=== PATIENT | female | born 1990 | race Caucasian/White ===

== ENCOUNTER 2019-06-15 14:45 | Inpatient (IN) ==
[2019-06-15] MEDS ORDERED: POTASSIUM CHLORIDE 20% LIQUID PO PRN (14:52)
[2019-06-15] MEDS ORDERED: POTASSIUM CHLORIDE 10% LIQUID PO PRN (14:52)
[2019-06-15] MEDS ORDERED: NS 1,000 ML IV ONE (14:52)
[2019-06-15] MEDS ORDERED: SODIUM BICARBONATE 8.4% 100 MEQ in STERILE WATER INJ. 500 ML IV PRN (14:52)
[2019-06-15] MEDS ORDERED: D50W SYRINGE IV PRN ×3 (14:52→19:08)
[2019-06-15] MEDS ORDERED: SODIUM PHOSPHATE 30 MMOL in D5W 250 ML IV PRN (14:52)
[2019-06-15] MEDS ORDERED: HUMULIN R IV ONE ×2 (14:52→19:08)
[2019-06-15] MEDS ORDERED: POTASSIUM CHLORIDE 20 MEQ/SWI 20 MEQ/100 ML IVPB IV PRN ×2 (14:52)
[2019-06-15] MEDS ORDERED: MAGNESIUM SULFATE 2 GM/S.W.I. 2 GM/50 ML IVPB IV PRN (14:52)
[2019-06-15] MEDS ORDERED: PROTONIX IV ONE (14:54)
[2019-06-15] MEDS ORDERED: SODIUM CHLORIDE 0.9% INJ ONE ×2 (14:54)
[2019-06-15] MEDS ORDERED: PEPCID IV ONE (14:54)
[2019-06-15] MEDS ORDERED: ZOFRAN IV ONE (14:54)
[2019-06-15] MEDS ORDERED: MORPHINE IV ONE ×2 (14:54→17:31)
[2019-06-15] MEDS ORDERED: HUMULIN R 100 UNIT in NS 100 ML IV SCH ×2 (15:00→19:08)
[2019-06-15 15:31] LABS: URINE SOURCE CLEAN CATCH
[2019-06-15 15:40] LABS: ALLEN TEST NO; BE -10.8 mmoll (-3.0-3.0); BLOOD TYPE ARTERIAL; HCO3-(ACT) 16.5 mmoll (20.0-26.0); PO2(98.6) 116 mmHg (60-100); SAMPLE BLOOD; pH(98.6) 7.47 (7.35-7.45)
[2019-06-15 15:41] LABS: PCO2(98.6) 13 mmHg (35-45); SAO2 97.9 % (95.0-100.0); THB 15.3 g/dL (11.5-17.4)
[2019-06-15 15:42] LABS: METHB 3.8 % (0.0-1.5); MODALITY ROOM AIR; O2(CT) 20.4 mL/dL (15.0-23.0); O2HB 94.2 % (95.0-99.0)
[2019-06-15 16:05] LABS: UR AMPHETAMINES QUAL NONE DETECTED (NONE DETECT); UR BARBITUATES QUAL NONE DETECTED (NONE DETECT); UR BENZODIAZEPIN QUAL NONE DETECTED (NONE DETECT); UR CANNABINOIDS QUAL NONE DETECTED (NONE DETECT); UR COCAINE QUAL NONE DETECTED (NONE DETECT); UR METHADONE QUAL NONE DETECTED (NONE DETECT); UR OPIATES QUAL PRESUMPTIVE POSITIVE (NONE DETECT); UR OXYCODONE QUAL NONE DETECTED (NONE DETECT); UR PCP QUAL NONE DETECTED (NONE DETECT)
[2019-06-15 16:15] LABS: BLOOD URINE NEGATIVE (NEGATIVE); COLOR YELLOW; GLUCOSE URINE >1000 mg/dL (NEGATIVE); LEUKOCYTES URINE NEGATIVE (NEGATIVE); NITRITE URINE NEGATIVE (NEGATIVE); PROTEIN URINE 100 mg/dL (NEGATIVE); TURBIDITY URINE CLEAR (CLEAR); UROBILINOGEN URINE NORMAL (NORMAL)
[2019-06-15 16:16] LABS: HEMATOCRIT 47.9 % (37.0-47.0); HEMOGLOBIN 17.7 g/dL (12.0-16.0); MCH 31.6 PG (27-31); MCV 85.5 FL (81-99); MPV 11.8 FL (7.4-10.4); RBC 5.6 XMIL (4.2-5.4); RDW 14.5 % (11.5-14.5); WBC 15.06 X1000 (4.8-10.8)
[2019-06-15 16:23] LABS: AMYLASE 136 U/L (20-200)
[2019-06-15 16:28] LABS: UR EPITHELIAL CELLS <10 /HPF (<10); URINE BACTERIA NEGATIVE /HPF; URINE RBC <10 /HPF (<10); URINE WBC <10 /HPF (<10)
[2019-06-15 16:28] LABS: LIPASE 300 U/L (13-60)
[2019-06-15 16:46] LABS: BILIRUBIN URINE SMALL (NEGATIVE); KETONE URINE 80 mg/dL (NEGATIVE); SP GRAVITY URINE 1.047
[2019-06-15] MEDS: NS 1,000 ML IV SCH ×6 (16:48→23:27)
[2019-06-15 16:52] LABS: INR 1.08; PROTIME 14.1 Seconds (11.0-16.0)
[2019-06-15] MEDS ORDERED: ZOSYN 4.5 GM in NS 100 ML IV ONE (17:02)
[2019-06-15] MEDS ORDERED: VANCOMYCIN 1 GM/NS 1 GM/250 ML IVPB IV ONE (17:02)
[2019-06-15 17:32] LABS: AGAP 26; ALKALINE PHOSPHATASE 66 U/L (32-104); CHLORIDE 82 mmol/L (98-107); COSMO 251; ESTIMATED GFR > 60; GLUCOSE 335 mg/dL (70-104); MAGNESIUM 1.4 mg/dL (1.5-2.7); POTASSIUM 3.7 mmol/L (3.5-5.1); SODIUM 119 mmol/L (136-145); TCO2 11 mmol/L (25-35); TOTAL BILIRUBIN 0.44 mg/dL (0.20-1.00); TOTAL PROTEIN 5.9 g/dL (6.3-8.3)
[2019-06-15 17:34] LABS: ACETONE SERUM NEGATIVE (NEGATIVE)
--- NOTE | 2019-06-15 17:38 | Diag Imaging Result Doc PS360 ---
EXAM: CHEST-PORTABLE 06/15/2019 HISTORY: dka TECHNIQUE: Erect AP portable at 1718 COMMENT: There is ill-defined opacity over the right hemidiaphragm. The heart size and pulmonary vascularity are within normal limits. There are no previous studies available for comparison. IMPRESSION: Minimal right basilar atelectasis versus pneumonia. Electronically signed by Chau Pretty 06/15/2019 5:35 PM
--- NOTE | 2019-06-15 18:11 | PROVIDER DOCUMENTATION ---
This chart was entered by Rosa Childs Scribe, acting as scribe for John Oconnor MD. HPI-General Adult - General Stated Complaint: ABDOMINAL PAIN Time Seen by Provider: 06/15/19 14:46 Source: patient, EMS Allergies/Adverse Reactions: Patient Allergies Allergy/AdvReac Type Severity Reaction Status Date / Time No Known Allergies Allergy Verified 06/13/19 02:28 Home Medications: Home Medication List Medication Instructions Recorded Confirmed Last Taken Type Insulin NPH Human Isophane See Protocol SUBQ BID 06/01/19 06/01/19 Unknown History [Humulin N] Acetaminophen with Codeine 1 ea PO Q4H PRN PRN #20 tab 06/13/19 Unknown Rx [Tylenol with Codeine #3] Ondansetron Odt [Zofran 8Mg Odt] 8 mg PO Q8H PRN PRN #20 tab 06/13/19 Unknown Rx - History of Present Illness -Gen Adult Nature of Presenting Problems: 28 y/o female with h/o type I diabetes and lupus presents with "pancreatitis and spleen and liver swollen". She states she takes OTC insulin and has not checked her blood sugar today. The patient complains of vomiting green emesis times 24 hours and intermittent dizziness. EMS states they picked the patient up at [facility] today and also two days ago when the patient had similar complaints and was fine after being given Fentanyl. Location of Pain/Injury: reports: abdomen (epigastrum), generalized Onset/Duration: reports: 24 hours ago Timing: reports: still present Associated Symptoms: reports: diaphoresis, dizziness, vomiting, other Similar Symptoms Previously?: Yes Recently seen or treated by another doctor?: Yes ([facility] 2 days ago ) Review of Systems - Adult - REVIEW OF SYSTEMS - ADULT Constitutional: denies: chills, fever, weight gain, weight loss Eyes: reports: no symptoms reported Ears, Nose, Mouth & Throat: reports: no symptoms reported Cardiovascular: reports: no symptoms reported Respiratory: reports: no symptoms reported Gastrointestinal: reports: nausea, vomiting. denies: diarrhea Genitourinary: reports: no symptoms reported Musculoskeletal: reports: no symptoms reported Integumentary: reports: no symptoms reported Neurological: reports: dizziness/vertigo. denies: seizure, syncope Psychiatric: reports: no symptoms reported Endocrine: reports: no symptoms reported Hematologic/Lymphatic: reports: no symptoms reported Allergic/Immunologic: reports: no symptoms reported All Other Systems: Reviewed and Negative Past History - Adult - PAST MEDICAL HISTORY-ADULT Review of Records: reports: Old Records Reviewed, Nursing Assessment Review, Medications Reviewed Major Childhood Illnesses: reports: denies history Cardiovascular: reports: denies history Respiratory: reports: denies history Gastrointestinal: reports: pancreatitis Obstetrical/Gynecological: reports: denies history Genitourinary: reports: denies history Musculoskeletal: reports: denies history Neurological: reports: denies history Psychiatric: reports: denies history Endocrine/Immune: reports: denies history Other Conditions: reports: denies history - IMMUNIZATION STATUS Childhood Immunizations: See Nurse Assessment Flu Vaccine: See Nurse Assessment - SOCIAL HISTORY Smoking: cigarettes Provider spent 3-5 mins advising pt. on dangers of tobacco.: Discussed manners to quit use, and f/u contacts for add'l counseling. Substance Use: denies Physical Exam-General - PHYSICAL EXAM-ADULT Initial Vital Signs Reviewed: Yes - CONSTITUTIONAL General Appearance: mild distress - HEAD, EARS, NOSE, MOUTH & THROAT HENMT: normocephalic/atraumatic, other (dry mucous membranes). negative: moist mucous membranes - RESPIRATORY Respiratory: lungs clear, increased rate. negative: rhonchi, wheezing - CARDIOVASCULAR Cardiovascular: tachycardia - GASTROINTESTINAL (ABDOMEN) Abdominal Exam: tenderness (epigastrum) - SKIN Integumentary: diaphoresis, other (diffuse papillary erythematous lesions with some pustules on upper and lower extremities, none on trunk) Progress - PLAN OF CARE/RESULTS Progress/Plan/Lab Results: 1456: negative CT scan abdomen and pelvis with contrast 06/13/2019 at [place] [facility] as well as additional visit to [facility] 06/14/2019. Result Diagrams: 06/15/19 15:22 06/15/19 15:22 - REASSESSMENT Reassessment #1 Time Reassessed: 17:09 Status: improving (Much better after IVF bolus, placed on insulin drip. Old chart reviewed, has been to ED daily for last 3 days, now is in DKA with epigastric pain/pancreatitis. Will need admission. Patient also meets sepsis (severe) criteria, so given Vanco/zosyn for possible GI source of infection.) Reassessment Comment: CT a/p with contrast done 2 days ago, benign - EKG 1 Time of EKG reading by physician:: 17:39 EKG Read and Signed by:: John Oconnor EKG Interpretation (*Must complete 3 of following elements*): Abnormal Rate: 130 Rhythm: sinus tachycardia [place]: right Comments: nonspecific ST and T wave - XRAY 1 XRAY Study: Chest (EXAM: CHEST-PORTABLE 06/15/2019 HISTORY: dka TECHNIQUE: Erect AP portable at 1718 COMMENT: There is ill-defined opacity over the right hemidiaphragm. The heart size and pulmonary vascularity are within normal limits. There are no previous studies available for comparison. IMPRESSION: Minimal right basilar atelectasis versus pneumonia. Electronically signed by Chau Pretty 06/15/2019 5:35 PM) - CONSULTS/PCP/HOSPITALIST Notification #1 *Consult/PCP/Hospitalist*: Perfecto paged at 1700 #2 Consult: Perfecto Time Discussed: 17:42 Consult Disposition: Admit Departure - Departure Date of Disposition Decision: 06/15/19 Time of Disposition Decision: 17:42 DIAGNOSIS: Diabetic ketoacidosis without coma associated with type 1 diabetes mellitus, Severe sepsis with acute organ dysfunction Pancreatitis, acute Qualifiers: Pancreatitis type: idiopathic Acute pancreatitis complication: unspecified Qualified Code(s): K85.00 - Idiopathic acute pancreatitis without necrosis or infection Disposition: ADMITTED INPATIENT 09 Certified Medical Emergency: Emergent Condition: Critical Referrals and Follow-Ups: None,PCP [Primary Care Provider] - - Critical Care Note This patient required my direct & personal management of CC.: Yes Total Time (mins): 45 Critical Care Statement: This patient required my direct personal management to treat or rule out processes, the absence of which, could potentiallly result in sudden, clinically significant life or limb threatening deterioration. Attestation - Physician/ MARISELA Attestation Patient care was provided by Advanced Practice Provider:: No The physician spent face to face time with patient:: Yes Advanced Practice Provider documentation review:: Supervising physician onsite and consulted in the evaluation and care of this patient. The physician did have a face to face encounter with the patient. This chart was documented by the indicated scribe, (Rosa Childs Scribe) and accurately reflects the services I performed and decisions made by Anastasia gonzalez Kent A., MD, as attested by the provider's signature.
[2019-06-15] MEDS ORDERED: COMPAZINE IV PRN (19:08)
[2019-06-15 19:48] LABS: BUN 8 mg/dL (8-22); CK PROFILE 24 U/L (24-173); CREATININE 0.8 mg/dL (0.5-0.9); GOT 86 U/L (10-30); GPT 58 U/L (10-36); PHOSPHORUS 1.6 mg/dL (2.7-4.5)
[2019-06-15 19:49] LABS: CALCIUM 7.6 mg/dL (8.8-10.2)
[2019-06-15] MEDS: MORPHINE IV PRN (20:10)
[2019-06-15] MEDS: ZOFRAN IV PRN (20:10)
[2019-06-15] MEDS: HEPARIN SUBQ SCH (20:11)
--- NOTE | 2019-06-15 20:59 | HISTORY AND PHYSICAL ---
PRIMARY CARE PHYSICIAN: None. CHIEF COMPLAINT: Abdominal pain. HISTORY OF PRESENT ILLNESS: This is a 28-year-old, female with past medical history of diabetes and lupus erythematosus untreated who presented to the emergency department complaining of nausea and vomiting. Actually, this patient has been seen in the emergency department in [place] on June 13 and June 14. Actually, she had an abdomen and pelvis CT at that time 2 days ago that basically showed hepatic steatosis and hepatosplenomegaly. The patient comes complaining of nausea and vomiting intractable that has been going on for the last 3 days. She reports in the last 48 hours at least 20 episodes of vomiting. No blood in it. Also diarrhea 2 to 3 times per day. No blood in it as well. She reports abdominal pain located mostly in the epigastric area that radiates a belt to the back. The vomiting that she describes in greenish. Here in the ER she was found to be in DKA, so she is going to be admitted for further evaluation and treatment. PAST MEDICAL HISTORY: 1. Diabetes diagnosed 12 years ago, but she had medical treatment until she was 17, and since then she does not have any primary care doctor. She gets her insulin apparently over-the- counter insulin 70/30 in [facility], but no primary care since then. 2. Lupus erythematosus that has been the diagnosed in [facility] many years ago. She does not remember when, but she is not receiving treatment for that condition. PAST SURGICAL HISTORY: 1. Gallbladder removal. 2. twice. 3. Right hand surgery. ALLERGIES: No known drug allergies. SOCIAL HISTORY: She lives with boyfriend and 2 children. She smokes 5 to 7 cigarettes per day. She does not drink any alcohol or using illicit drugs. She used to be a drinker, but she quit 4 years ago. REVIEW OF SYSTEMS: Eleven systems were reviewed and no symptoms are related to H P. FAMILY HISTORY: Noncontributory. PHYSICAL EXAMINATION: VITALS: Temperature 97.3 degrees, heart rate 141, respiratory rate 30, blood pressure 103/72, O2 saturations 99% on room air. GENERAL: This is a chronically ill-appearing, 28-year-old, female lying in bed in no acute distress. HEENT: Head is normocephalic, atraumatic. Mucous membranes dry. Pupils equal, round, and reactive to light and accommodation. Anicteric sclerae. Pale conjunctivae. NECK: No JVD noted. No carotid bruits. No lymphadenopathy. No thyromegaly. CARDIOVASCULAR: S1, S2 heard. No murmurs, gallops, or rubs. Regular rate and rhythm. RESPIRATORY: Clear bilaterally to auscultation. No work of breathing or using accessory muscles. ABDOMEN: Diffuse tenderness to palpation mostly noted in the epigastric area. No signs of peritoneal irritation. Bowel sounds present. No organomegaly. EXTREMITIES: No clubbing, cyanosis, or edema. EXTREMITIES: Peripheral pulses present in both legs. NEUROLOGIC: The patient alert and oriented x3. Moves 4 extremities. LABORATORY DATA: It is important to remark that some labs are not available. I talked with the ER lab, and they mentioned that the sample was almost looking like milk. The following labs that we have available are the following .white cell count 15.06, hemoglobin 17.7, hematocrit 47.9, platelets 328,000 with ABG that shows pH 7.47 with pCO2 of 13, PO2 116, lactate 5.8, sodium 119, potassium 3.7. BUN and creatinine are pending. Auto GFR the report is greater than 60. Glucose 335. The calcium and phosphorus are pending. Magnesium 1.4. AST and ALT pending. Troponin negative. Plasma lactate 6.5. ASSESSMENT AND PLAN: 1. Diabetic ketoacidosis. We will start this patient on insulin drip. We will check BMP q.4 hours as well as phosphorus and magnesium. We will provide aggressive fluid resuscitation. We will check hemoglobin A1c. We will send her to intensive care unit. 2. History of lupus. We are going to repeat ZAID panel here. 3. Hyperlipidemia. Apparently the blood sample is very milky. We will check lipid panel and will go from there. 4. Acute pancreatitis. Patient has history of chronic pancreatitis. She has according to her multiple times, I do not know, if that is because of hypertriglyceridemia. We do not have results of lipid panel yet. At this point, we are going to provide intravenous fluids and pain medication. We will continue to monitor this patient closely. 5. Intractable nausea and vomiting. We will start the patient on Zofran. Considering her long history of diabetes, we will check empty gastric studies thinking of diabetic gastroparesis. cc: David Virgen MD
[2019-06-15 21:28] LABS: HEMOGLOBIN A1C 8.9 % (4.8-6.0)
[2019-06-15 21:50] LABS: AGAP 21; ALB/GLOB RATIO 1.2; ALBUMIN 2.8 g/dL (3.5-5.0); ALKALINE PHOSPHATASE 53 U/L (32-104); BUN 7 mg/dL (8-22); CHLORIDE 92 mmol/L (98-107); CHOLESTEROL 733 mg/dL (0-200); COSMO 254; CREATININE 0.6 mg/dL (0.5-0.9); ESTIMATED GFR > 60; GLUCOSE 181 mg/dL (70-104); GOT 114 U/L (10-30); GPT 47 U/L (10-36); HDL 5 mg/dL (45-65); LDL 712 mg/dL; POTASSIUM 3.7 mmol/L (3.5-5.1); SODIUM 125 mmol/L (136-145); TCO2 12 mmol/L (25-35); TOTAL BILIRUBIN 0.41 mg/dL (0.20-1.00); TOTAL PROTEIN 5.2 g/dL (6.3-8.3); TRIGLYCERIDES > 4425 mg/dL (35-135)
[2019-06-15 22:07] LABS: CALCIUM 7.2 mg/dL (8.8-10.2)
[2019-06-16] MEDS: MORPHINE IV PRN ×4 (00:48→22:29)
[2019-06-16] MEDS: ZOFRAN IV PRN ×2 (00:48→07:50)
[2019-06-16 02:09] LABS: AGAP 20; BUN 7 mg/dL (8-22); CHLORIDE 98 mmol/L (98-107); COSMO 260; CREATININE 0.6 mg/dL (0.5-0.9); ESTIMATED GFR > 60; GLUCOSE 217 mg/dL (70-104); POTASSIUM 4.1 mmol/L (3.5-5.1); SODIUM 127 mmol/L (136-145); TCO2 9 mmol/L (25-35)
[2019-06-16 02:10] LABS: CALCIUM 6.6 mg/dL (8.8-10.2)
[2019-06-16] MEDS ORDERED: CALCIUM GLUCONATE 1 GM in NS 50 ML IV ONE (02:16)
[2019-06-16] MEDS ORDERED: ATIVAN IV ONE (02:44)
[2019-06-16] MEDS: POTASSIUM CHLORIDE 10 MEQ in D5 NS 1,000 ML IV PRN ×3 (02:46→20:02)
[2019-06-16] MEDS: NS 1,000 ML IV SCH ×3 (03:28→19:20)
[2019-06-16] MEDS ORDERED: PROTONIX IV SCH (04:00)
[2019-06-16] MEDS ORDERED: SODIUM CHLORIDE 0.9% INJ PRN (04:00)
[2019-06-16 04:38] LABS: ALLEN TEST YES; BE -10.6 mmoll (-3.0-3.0); BLOOD TYPE ARTERIAL; HCO3-(ACT) 16.6 mmoll (20.0-26.0); PCO2(98.6) 28 mmHg (35-45); PO2(98.6) 93 mmHg (60-100); SAMPLE BLOOD; pH(98.6) 7.31 (7.35-7.45)
[2019-06-16 04:39] LABS: MODALITY ROOM AIR
[2019-06-16 05:24] LABS: BASO# 0.02 X1000 (0.0-0.2); BASO% 0.2 % (0.0-0.8); EOS# 0.07 X1000 (0.0-0.7); EOS% 0.7 % (0.0-10.0); HEMATOCRIT 36.6 % (37.0-47.0); IMM GRAN# 0.02 X1000 (0.0-0.04); IMM GRAN% 0.2 % (0.0-0.5); LYMPH# 0.94 X1000 (1.2-3.4); LYMPH% 9.4 % (20.5-51.1); MCHC 35.5 g/dL (33-37); MCV 87.4 FL (81-99); MPV 11.6 FL (7.4-10.4); NEUT# 8.01 X1000 (1.4-6.5); NEUT% 80.5 % (42.2-75.2); PLT 177 X1000 (130-400); RBC 4.19 XMIL (4.2-5.4); RDW 14.3 % (11.5-14.5); WBC 9.96 X1000 (4.8-10.8)
[2019-06-16 06:17] LABS: AGAP 16; BUN 6 mg/dL (8-22); CHLORIDE 98 mmol/L (98-107); COSMO 260; CREATININE 0.3 mg/dL (0.5-0.9); ESTIMATED GFR > 60; GLUCOSE 235 mg/dL (70-104); MAGNESIUM 1.9 mg/dL (1.5-2.7); PHOSPHORUS 2.3 mg/dL (2.7-4.5); POTASSIUM 3.8 mmol/L (3.5-5.1); SODIUM 127 mmol/L (136-145); TCO2 13 mmol/L (25-35)
[2019-06-16 06:18] LABS: CALCIUM 6.9 mg/dL (8.8-10.2)
--- NOTE | 2019-06-16 07:10 | EKG Report ---
Test Performed on : 06/15/2019 3:33:44 PM Test Reason : epigastric pain, DM Blood Pressure : / mmHG Vent. Rate : 130 BPM Atrial Rate : 130 BPM P-R Int : 120 ms QRS Dur : 060 ms QT Int : 306 ms P-R-T Axes : 000 140 141 degrees QTc Int : 450 ms Sinus tachycardia. Right axis deviation Low voltage QRS Nonspecific T wave abnormality Abnormal ECG No previous ECGs available Unconfirmed Result
[2019-06-16] MEDS: HEPARIN SUBQ SCH ×2 (08:36→20:59)
[2019-06-16] MEDS: ATIVAN IV PRN ×4 (08:44→20:59)
--- NOTE | 2019-06-16 10:11 | PROGRESS NOTE ---
DATE: 06/16/2019 SUBJECTIVE: The patient, according to nursing staff, has been agitated and anxious. She received 1 dose of Ativan IV and she is very sleepy this morning. OBJECTIVE: Vital Signs: Temperature 99.3 degrees, heart rate 117, respiratory rate 21, blood pressure 104/64, O2 saturation 98% on room air. General Examination: This is a chronically ill- appearing, 28-year-old, female lying in bed, in no acute distress. Cardiovascular Examination: S1 and S2 heard. Tachycardic but no murmurs, gallops, or rubs noted. Respiratory Examination: Clear bilaterally to auscultation. No work of breathing or using accessory muscles. Abdomen: Diffuse tenderness to palpation but no signs of peritoneal irritation. Looks that there is splenomegaly noted. Bowel sounds present. Extremities: No clubbing, cyanosis, or edema. Peripheral pulses present in both legs. There are lesions noted, elevated pinkish lesions noted in the extensor areas of both upper extremities and lower extremities, apparently itchy. Neurological Examination: The patient is sleepy because she has received Ativan but moves 4 extremities spontaneously. Laboratory Data: White cell count 9.96, hemoglobin 13.0, hematocrit 36.6, platelets 177,000. ABG shows pH 7.31, with pCO2 of 28, PO2 of 93 on room air. Left chemistry showed sodium 127 with normal creatinine and glucose is 235. ASSESSMENT AND PLAN: 1. Diabetic ketoacidosis. The patient is still having open anion gap and low bicarbonate. We will continue with the insulin infusion. We will continue to check magnesium and phosphorus, and we will replete per protocol. We will continue with aggressive fluid resuscitation as well. 2. History of lupus. ZAID panel has been ordered. 3. Acute on chronic pancreatitis. Patient has a history of chronic pancreatitis, most likely related to hypertriglyceridemia, according to her, and the triglycerides today are more than 4425 with cholesterol very elevated at 733. I think that is the reason why she has this problem so we will start this patient on atorvastatin 80 mg at night and we will continue with insulin drip. That will definitely help with very elevated triglycerides. 4. Intractable nausea and vomiting. We will continue with Zofran that apparently is working. With this extremely bad-controlled diabetes, we will check emptying gastric studies for possible diabetic gastroparesis. cc: David Virgen MD
--- NOTE | 2019-06-16 10:25 | Diag Imaging Result Doc PS360 ---
EXAM: US ABDOMEN-COMPLETE HISTORY: acute on chronic pancreatitis TECHNIQUE: Abdominal ultrasound COMPARISON: CT from 06/13/2019 FINDINGS: The pancreas is obscured. The liver is prominent measuring almost 24 cm. There is fatty infiltration. The gallbladder has been removed. The common bile duct measures 6 mm. Normal right kidney. No hydronephrosis. Normal left kidney. No hydronephrosis. The spleen is prominent measuring 14.7 cm in length. No ascites. The aorta and inferior vena cava are poorly seen. IMPRESSION: 1.Hepatosplenomegaly with fatty infiltration of the liver 2.Cholecystectomy Electronically signed by Jackson Camejo 06/16/2019 10:22 AM
--- NOTE | 2019-06-16 10:44 | INFECTIOUS DISEASE CONSULT REP ---
DATE: 06/16/2019 CONCLUSION: I was asked to see the patient about her rash. The appearance of the rash is similar to pictures of molluscum contagiosum and up-to-date. Also, apparently the patient was told at one time she does have molluscum contagiosum. Because of both of these things, it does really appear she does have molluscum contagiosum. The patient also might have pancreatitis. She is having abdominal pain. She has a history of pancreatitis and her lipase is 300. Finally, the patient on chest x-ray, in the lower part of the right lung, there is pneumonia versus atelectasis. RECOMMENDATIONS: Unfortunately, I have not had much experience with treatment of molluscum contagiosum, and I would be hesitant to try to do any kind of treatment. I do not think that dermatologists come to [facility] for consult, so most likely the patient will have to see one after she leaves the hospital. If we want to go ahead and try to get a diagnosis now, I could ask Surgery to do a skin biopsy and see what it shows. Recommendations regarding the patient's possible pneumonia, I have ordered a procalcitonin and I have started the patient on IV Levaquin. DISCUSSION: The patient is delirious. She does not follow any requests I make of her and she does not talk. The information I have on her is through the computer. She came to the emergency department complaining of nausea and vomiting. She had an abdomen and pelvic CT scan which showed hepatic steatosis and hepatosplenomegaly. She was found in the emergency room to be in diabetic ketoacidosis and she was admitted. The patient's lab studies thus far show a CBC with a white count of 9960, hemoglobin 13, platelet count is 177,000. AST is 114. Urinalysis was negative for white cells or bacteria. Arterial blood gases showed a pH of 7.31, a PO2 of 93 and a pCO2 of 28. Creatinine was 0.3. GFR is greater than 60. Drug screen was positive for opiates. The patient's lipase was 300. As mentioned above, the chest x-ray showed minimal right atelectasis/pneumonia. PAST MEDICAL HISTORY: Positive for diabetes mellitus, systemic lupus, and chronic pancreatitis. PAST SURGICAL HISTORY: Positive for cholecystectomy, x2, and right hand surgery. ALLERGIES: The patient has no known drug allergies. SOCIAL HISTORY: The patient lives with her boyfriend and 2 children. She smokes cigarettes. She does not drink alcoholic beverages or use illicit drugs. She has stopped drinking alcohol for 4 years now. REVIEW OF SYSTEMS: Unable to be obtained. FAMILY HISTORY: Said to be noncontributory. PHYSICAL EXAMINATION: Vital Signs: Temperature is 99.3 degrees, pulse 119, respirations 24, blood pressure 119/69. The patient is 5 feet 11 inches tall, weighs 175 pounds. General: This is an ill-appearing young female. She is somewhat delirious. Head/eyes/ears/nose/throat: No drainage noted from the nose or ears. Neck: She did not seem to have any pain when her neck was moved passively. Lungs: Clear to auscultation. Cardiovascular: Regular heart rate. Abdomen: Soft. In the upper part of the abdomen, there was slight tenderness to palpation. Neurologic: The patient as mentioned above is in a delirium. She did not follow my request to move her extremities or to open her eyes or open her mouth. There was no tremor. Integument: The patient has a diffuse punctate red rash with light colored center. The patient's skin has papules that are erythematous in the middle. They are skin color. Thank you for the consult. cc: Pio Delgado MD
[2019-06-16] MEDS: LEVAQUIN 500 MG in NS 100 ML IV SCH (11:04)
[2019-06-16 11:32] LABS: ESTIMATED GFR > 60
[2019-06-16 11:39] LABS: AGAP 16; BUN 6 mg/dL (8-22); CALCIUM 7.1 mg/dL (8.8-10.2); CHLORIDE 99 mmol/L (98-107); COSMO 267; CREATININE 0.7 mg/dL (0.5-0.9); GLUCOSE 250 mg/dL (70-104); PHOSPHORUS 1.6 mg/dL (2.7-4.5); SODIUM 130 mmol/L (136-145); TCO2 15 mmol/L (25-35)
[2019-06-16] MEDS ORDERED: TYLENOL PR PRN (11:41)
[2019-06-16] MEDS ORDERED: OFIRMEV 1000 MG/ISOTONIC SOLN 1,000 MG/100 ML BOTTLE IV PRN (11:58)
--- NOTE | 2019-06-16 14:27 | Diag Imaging Result Doc PS360 ---
EXAM: GASTRIC EMPTYING INDICATION: suspected gastroparesis TECHNIQUE: 609 uCi of technetium 99 sulfur colloid was administered orally with an egg and images were obtained in usual fashion. COMPARISON: None. FINDINGS: There is normal-appearing activity in the gastric lumen initially. The extrapolated time to one half emptying is 200 minutes. The patient is electively ended the study at one hour. At this point, there was only 15% emptying. IMPRESSION: Delayed gastric emptying supporting gastroparesis. Electronically signed by Timoteo Mann 06/16/2019 2:25 PM
[2019-06-16 16:45] LABS: ESTIMATED GFR > 60
[2019-06-16 16:49] LABS: AGAP 19; BUN 7 mg/dL (8-22); CALCIUM 7.6 mg/dL (8.8-10.2); CHLORIDE 100 mmol/L (98-107); COSMO 271; CREATININE 0.7 mg/dL (0.5-0.9); GLUCOSE 252 mg/dL (70-104); MAGNESIUM 1.9 mg/dL (1.5-2.7); PHOSPHORUS 1.1 mg/dL (2.7-4.5); POTASSIUM 4.3 mmol/L (3.5-5.1); SODIUM 132 mmol/L (136-145); TCO2 13 mmol/L (25-35)
[2019-06-16] MEDS: POTASSIUM CHLORIDE 10% LIQUID PO PRN (17:17)
[2019-06-16] MEDS: LIPITOR PO SCH (20:59)
[2019-06-16] MEDS: REGLAN IV SCH (22:45)
[2019-06-16 23:02] LABS: AGAP 14; BUN 6 mg/dL (8-22); CHLORIDE 100 mmol/L (98-107); COSMO 263; CREATININE 0.7 mg/dL (0.5-0.9); ESTIMATED GFR > 60; GLUCOSE 183 mg/dL (70-104); MAGNESIUM 1.9 mg/dL (1.5-2.7); PHOSPHORUS 1.2 mg/dL (2.7-4.5); POTASSIUM 4.1 mmol/L (3.5-5.1); SODIUM 130 mmol/L (136-145); TCO2 16 mmol/L (25-35)
[2019-06-17] MEDS: ATIVAN IV PRN ×4 (01:12→21:13)
[2019-06-17] MEDS: MORPHINE IV PRN ×2 (01:13→05:57)
[2019-06-17] MEDS: POTASSIUM CHLORIDE 10% LIQUID PO PRN ×2 (02:45→05:44)
[2019-06-17 02:52] LABS: AGAP 14; BUN 6 mg/dL (8-22); CALCIUM 7.8 mg/dL (8.8-10.2); CHLORIDE 102 mmol/L (98-107); COSMO 263; CREATININE 0.7 mg/dL (0.5-0.9); ESTIMATED GFR > 60; GLUCOSE 147 mg/dL (70-104); MAGNESIUM 1.8 mg/dL (1.5-2.7); PHOSPHORUS 1.1 mg/dL (2.7-4.5); POTASSIUM 3.4 mmol/L (3.5-5.1); SODIUM 131 mmol/L (136-145); TCO2 15 mmol/L (25-35)
[2019-06-17] MEDS: NS 1,000 ML IV SCH ×2 (03:50→10:18)
[2019-06-17] MEDS: POTASSIUM CHLORIDE 10 MEQ in D5 NS 1,000 ML IV PRN (04:06)
[2019-06-17] MEDS: REGLAN IV SCH ×4 (04:11→23:03)
[2019-06-17 05:08] LABS: BASO# 0.01 X1000 (0.0-0.2); BASO% 0.1 % (0.0-0.8); EOS# 0.24 X1000 (0.0-0.7); EOS% 2.8 % (0.0-10.0); HEMATOCRIT 32.2 % (37.0-47.0); HEMOGLOBIN 10.9 g/dL (12.0-16.0); IMM GRAN# 0.03 X1000 (0.0-0.04); IMM GRAN% 0.4 % (0.0-0.5); LYMPH% 11.9 % (20.5-51.1); MCH 30.2 PG (27-31); MCHC 33.9 g/dL (33-37); MCV 89.2 FL (81-99); MONO# 0.64 X1000 (0.11-0.59); MONO% 7.6 % (1.7-9.3); MPV 12.1 FL (7.4-10.4); NEUT# 6.51 X1000 (1.4-6.5); NEUT% 77.2 % (42.2-75.2); PLT 143 X1000 (130-400); RBC 3.61 XMIL (4.2-5.4); RDW 14.6 % (11.5-14.5); WBC 8.43 X1000 (4.8-10.8)
[2019-06-17 05:13] LABS: AGAP 11; BUN 5 mg/dL (8-22); CALCIUM 7.9 mg/dL (8.8-10.2); CHLORIDE 100 mmol/L (98-107); COSMO 259; CREATININE 0.7 mg/dL (0.5-0.9); ESTIMATED GFR > 60; GLUCOSE 182 mg/dL (70-104); MAGNESIUM 1.7 mg/dL (1.5-2.7); PHOSPHORUS 1.2 mg/dL (2.7-4.5); POTASSIUM 3.5 mmol/L (3.5-5.1); SODIUM 128 mmol/L (136-145); TCO2 17 mmol/L (25-35)
[2019-06-17] MEDS ORDERED: SODIUM PHOSPHATE 40 MMOL in NS 250 ML IV ONE (05:17)
[2019-06-17] MEDS ORDERED: NEUTRA-PHOS PO SCH (05:30)
[2019-06-17 06:56] LABS: CHOLESTEROL 477 mg/dL (0-200); HDL 7 mg/dL (45-65); TRIGLYCERIDES 2849 mg/dL (35-135)
--- NOTE | 2019-06-17 09:07 | PROGRESS NOTE ---
DATE: 06/17/2019 SUBJECTIVE: According to nursing staff, she has been more calmed down overnight, but she was receiving Ativan because she has been agitated and anxious. Also, pain is well controlled with morphine that she is receiving. OBJECTIVE: Vital Signs: Temperature 98.6 degrees, heart rate 106, respiratory rate 20, blood pressure 103/50, and O2 saturation 95% on 2 L nasal cannula. General: This is a chronically ill- appearing, 28-year-old, female lying in bed, in no acute distress. Cardiovascular: S1, S2 heard. No murmurs, gallops, or rubs. Regular rate and rhythm. Respiratory: Clear bilaterally to auscultation. No work of breathing or using accessory muscles. Abdomen: Soft. Nontender to palpation. Bowel sounds present. No organomegaly. Extremities: No clubbing, cyanosis, or edema. Peripheral pulses present in both legs. The patient has on both upper extremities some elevated lesions like papules that are erythematosus apparently not itchy. Neurological: Patient alert and oriented x3. Moves all 4 extremities. LABORATORY DATA: White cell count 8.43, with hemoglobin 10.9, hematocrit 32.2 and platelets are 143,000 with BMP that reveals bicarbonate of 17 with anion gap of 11. ASSESSMENT AND PLAN: 1. Diabetic ketoacidosis. Numbers are looking better. The patient is still have low bicarbonate but the anion gap has closed. At this point, we will continue with the insulin infusion. I think if the next BMP shows better bicarbonate, then we will stop the drip. Magnesium and phosphorus has been checked, and will repeat phosphorus today. 2. Community-acquired pneumonia. Patient has been started on Levaquin as per Dr. Delgado' recommendation. We will continue to monitor. 3. Acute on chronic pancreatitis. We will continue with IV fluids and IV pain medication. We will continue to monitor. 4. Newly diagnosed diabetic gastroparesis. That is the reason why this patient was vomiting profusely on double scale DKA. We will start Reglan 5 mg IV q.6 hours. We will provide a prescription once this patient is ready to go. 5. Severe hypertriglyceridemia. We will check a lipid panel today; that is the reason why this patient has developed pancreatitis again. She was also having severe hypercholesterolemia as well. At this point, we will continue to monitor. 6. Disposition: We will continue to monitor this patient closely in the ICU. If labs that are going to drawn in a few hours shows better bicarbonate, then we can send this patient to a regular room. cc: David Virgen MD MTDKaren
[2019-06-17 09:11] LABS: AGAP 13; BUN 5 mg/dL (8-22); CHLORIDE 106 mmol/L (98-107); COSMO 273; CREATININE 0.6 mg/dL (0.5-0.9); ESTIMATED GFR > 60; GLUCOSE 161 mg/dL (70-104); MAGNESIUM 1.8 mg/dL (1.5-2.7); PHOSPHORUS 3.2 mg/dL (2.7-4.5); POTASSIUM 3.7 mmol/L (3.5-5.1); SODIUM 136 mmol/L (136-145); TCO2 17 mmol/L (25-35)
[2019-06-17] MEDS: HEPARIN SUBQ SCH ×2 (09:16→21:13)
[2019-06-17] MEDS: HUMULIN 70/30 SUBQ SCH ×2 (10:43→18:03)
[2019-06-17] MEDS ORDERED: INSULIN PEN NEEDLES ONE (10:46)
[2019-06-17] MEDS: HUMALOG SUBQ SCH ×3 (11:31→21:14)
[2019-06-17] MEDS: LEVAQUIN 500 MG in NS 100 ML IV SCH (11:43)
[2019-06-17] MEDS: LIPITOR PO SCH (21:13)
[2019-06-18] MEDS: NS 1,000 ML IV SCH (00:47)
[2019-06-18] MEDS: ATIVAN IV PRN (02:19)
[2019-06-18] MEDS: REGLAN IV SCH ×2 (04:42→09:28)
[2019-06-18] MEDS: MORPHINE IV PRN (04:54)
[2019-06-18 05:26] LABS: BASO# 0.01 X1000 (0.0-0.2); BASO% 0.1 % (0.0-0.8); EOS# 0.17 X1000 (0.0-0.7); EOS% 1.9 % (0.0-10.0); HEMATOCRIT 31.6 % (37.0-47.0); HEMOGLOBIN 10.3 g/dL (12.0-16.0); IMM GRAN# 0.02 X1000 (0.0-0.04); IMM GRAN% 0.2 % (0.0-0.5); LYMPH# 1.19 X1000 (1.2-3.4); LYMPH% 13.3 % (20.5-51.1); MCH 28.9 PG (27-31); MCHC 32.6 g/dL (33-37); MCV 88.8 FL (81-99); MONO# 0.78 X1000 (0.11-0.59); MONO% 8.7 % (1.7-9.3); MPV 11.7 FL (7.4-10.4); NEUT# 6.75 X1000 (1.4-6.5); NEUT% 75.8 % (42.2-75.2); PLT 155 X1000 (130-400); RBC 3.56 XMIL (4.2-5.4); RDW 14.4 % (11.5-14.5); WBC 8.92 X1000 (4.8-10.8)
[2019-06-18] MEDS: HUMALOG SUBQ SCH (06:16)
[2019-06-18 06:33] LABS: AGAP 16; BUN 4 mg/dL (8-22); CALCIUM 8.4 mg/dL (8.8-10.2); CHLORIDE 98 mmol/L (98-107); COSMO 265; CREATININE 0.6 mg/dL (0.5-0.9); ESTIMATED GFR > 60; GLUCOSE 202 mg/dL (70-104); MAGNESIUM 1.6 mg/dL (1.5-2.7); PHOSPHORUS 2.9 mg/dL (2.7-4.5); POTASSIUM 3.2 mmol/L (3.5-5.1); SODIUM 131 mmol/L (136-145); TCO2 17 mmol/L (25-35)
[2019-06-18] MEDS ORDERED: HUMULIN 70/30 SUBQ SCH (07:00)
--- NOTE | 2019-06-18 08:22 | Diag Imaging Result Doc PS360 ---
EXAM: CHEST-2 VIEWS HISTORY: pna TECHNIQUE: PA and Lateral chest x-ray COMPARISON: 06/15/2019 FINDINGS: The cardiomediastinal silhouette is within normal limits. There are reduced lung volumes with bibasilar hypoventilation/atelectasis. There are small bilateral effusions new from prior. There is mild vascular congestion. IMPRESSION: Reduced lung volumes with bibasilar atelectasis. Vascular congestion with bilateral effusions. Electronically signed by Traci Castaneda 06/18/2019 8:19 AM
[2019-06-18 08:51] VITALS: BP 129/74
[2019-06-18] MEDS: HUMULIN 70/30 SUBQ SCH (09:28)
[2019-06-18] MEDS: HEPARIN SUBQ SCH (09:28)
[2019-06-18] MEDS ORDERED: KLOR-CON PO ONE (09:44)
--- NOTE | 2019-06-18 10:41 | INFECTIOUS DISEASE PROGRESS NO ---
DATE: 06/18/2019 PRESENT ILLNESS: The patient may have a right lower lobe pneumonia versus atelectasis. She also has a diffuse rash, which I think is compatible with being molluscum contagiosum. MEDICATIONS: The patient is receiving Levaquin for the possible pneumonia. As regarding the patient's skin rash, I think she should go to a active directory architect to make the final decision as to what the rash is, and also the active directory architect would be the one to decide what type of treatment is indicated for her rash. Regarding for the patient's pneumonia for now, I am going to continue Levaquin. A procalcitonin level and repeat chest x-ray are pending. PHYSICAL EXAMINATION: Vital Signs: Temperature earlier was 100.2. The last temperature was 99.9 degrees, pulse 111, respirations 17, and blood pressure is 125/72. General: This is a lethargic and somewhat ill-appearing young female. She is in no acute distress. Head/eyes/ears/nose/throat: No drainage was noted from the nose or ears. I did not see any white patches in her mouth. Neck: No pain with movement. Lungs: Clear to auscultation. Cardiovascular: Heart rate is regular. Abdomen: Soft and nontender. Integument: The patient has diffuse red papular lesions with a light colored center. She also has tattoos and some jewelry pinned on her skin. LABORATORY AND X-RAY: CBC shows a white count of 8920, hemoglobin 10.3, and platelet count 155,000. Creatinine 0.6. GFR is greater than 60. A procalcitonin level and chest x-ray for this morning are pending. ASSESSMENT AND PLAN: The patient may have a right lower lobe pneumonia. My plan is to continue with Levaquin pending the results of procalcitonin, and the repeat chest x-ray. As regarding the patient's rash as, as mentioned above, I think that the patient would get the best care by seeing a active directory architect to diagnosis and treat her rash. COMORBIDITIES: Diabetes mellitus, systemic lupus, and pancreatitis. Patient also is a cigarette smoker. cc: Pio Delgado MD
--- NOTE | 2019-06-19 09:33 | DISCHARGE SUMMARY ---
ADMISSION DATE: 06/15/2019 DISCHARGE DATE: 06/18/2019 CONSULTATIONS: Dr. Delgado with Infectious Disease. PERTINENT PROCEDURES: Abdominal ultrasound: Hepatosplenomegaly with fatty infiltration of the liver, cholecystectomy, gastric emptying study delayed supporting gastroparesis, chest x-ray reveals lung volumes with bibasilar atelectasis, vascular congestion with bilateral effusions. DISCHARGE DIAGNOSES: 1. Diabetic ketoacidosis, resolved. 2. Community-acquired pneumonia followed by Dr. Delgado. We will continue antibiotics per his recommendation. 3. History of lupus. 4. Acute on chronic pancreatitis, improved. 5. Intractable nausea and vomiting secondary to diabetic gastroparesis. 6. Diffuse rash compatible with molluscum contagiosum. Recommend she follow up with a migratory worker to diagnose and treat this rash per Dr. Delgado. HOSPITAL COURSE: Briefly, Ms. Dave is a 28-year-old female with a past medical history of diabetes and lupus erythematous, untreated, who presented to the ED complaining of nausea and vomiting. She had also been seen in the ED at [facility] on June 13 and . She had an abdomen and pelvis CT at that time that basically showed hepatic steatosis and hepatosplenomegaly. She came back into the ED complaining of nausea and vomiting that was intractable, as well as diarrhea 2 to 3 times per day and abdominal pain that was located in the epigastric area that radiated to the back. She was found to be in DKA and was admitted for further evaluation and treatment for her DKA and acute pancreatitis, as well as her intractable nausea and vomiting. A gastric emptying study confirmed gastroparesis. Infectious Disease was brought on board to see the patient about a rash that appeared to be consistent with pictures of molluscum contagiosum, as the patient had been told that she had this condition once before. She was also treated for possible pneumonia versus atelectasis with Levaquin. Her DKA and acute pancreatitis resolved, as well as her nausea, vomiting and diarrhea. Repeat chest x-ray today does not show any pneumonia. She will be discharged on Humulin 70/30, Reglan and Lipitor, and is encouraged to follow up with a migratory worker for her rash. VITAL SIGNS: At time of her discharge, temperature 99.3 degrees, heart rate 102, respiration 19, blood pressure 129/74, O2 is 95% on room air. DISCHARGE DIET: Diabetic. DISCHARGE MEDICATIONS: 1. Lipitor 40 mg p.o. at bedtime. 2. Humulin 70/30, 25 units subcutaneous b.i.d. 3. Reglan 0.5 tabs p.o. before meals and at bedtime. FOLLOW-UP: Ms. Dave is being discharged back home with self care. She is to take all medications as prescribed. She is to follow up with a migratory worker of her choosing, as well as a primary care provider of her choosing to the list that has been provided to her. She can return to the ED or call 911 for any worsening of symptoms. Dictated by ILYA Fernandes for David Virgen MD Addendum: Patient seen and examined by myself. Agree with ILYA note. It reflects my assessment and plan. Patient is being discharged in stable condition. Highly encouraged to find a PCP. Will provide prescriptions for insulin. cc: David Virgen MD MTDD
== END 2019-06-18 11:33 | disposition home or self-care (01) | DRG 637 ==
LOC: SUPCPDRO → ED 14:45 → EDIPHOLD 18:52 → ICU 21:05 → 1N 06-17 12:03
PROVIDERS: ATTEND Internal Medicine

== ENCOUNTER 2019-06-20 14:49 | Inpatient (IN) ==
[2019-06-20] MEDS ORDERED: COMPAZINE IV ONE (15:07)
[2019-06-20] MEDS ORDERED: NS 1,000 ML IV ONE ×2 (15:07→17:48)
[2019-06-20] MEDS ORDERED: DILAUDID IV ONE (15:07)
[2019-06-20 15:34] LABS: ALLEN TEST YES; BE -8.2 mmoll (-3.0-3.0); BLOOD TYPE ARTERIAL; HCO3-(ACT) 18.5 mmoll (20.0-26.0); METHB 1.2 % (0.0-1.5); O2(CT) 16.1 mL/dL (15.0-23.0); PO2(98.6) 97 mmHg (60-100); SAMPLE BLOOD; SAO2 98.6 % (95.0-100.0); THB 11.8 g/dL (11.5-17.4); pH(98.6) 7.46 (7.35-7.45)
[2019-06-20 15:35] LABS: MODALITY ROOM AIR; PCO2(98.6) 19 mmHg (35-45)
[2019-06-20 16:03] LABS: BASO# 0.04 X1000 (0.0-0.2); BASO% 0.3 % (0.0-0.8); EOS# 0.23 X1000 (0.0-0.7); EOS% 1.9 % (0.0-10.0); HEMATOCRIT 36.9 % (37.0-47.0); HEMOGLOBIN 11.6 g/dL (12.0-16.0); IMM GRAN# 0.07 X1000 (0.0-0.04); IMM GRAN% 0.6 % (0.0-0.5); LYMPH# 1.56 X1000 (1.2-3.4); MCH 27.8 PG (27-31); MCHC 31.4 g/dL (33-37); MCV 88.3 FL (81-99); MONO# 1.07 X1000 (0.11-0.59); MONO% 8.9 % (1.7-9.3); MPV 11.5 FL (7.4-10.4); NEUT% 75.3 % (42.2-75.2); PLT 283 X1000 (130-400); RBC 4.18 XMIL (4.2-5.4); RDW 14.2 % (11.5-14.5); WBC 11.97 X1000 (4.8-10.8)
[2019-06-20 16:08] LABS: URINE SOURCE CLEAN CATCH
[2019-06-20 16:20] LABS: ESTIMATED GFR > 60
[2019-06-20 16:20] LABS: BILIRUBIN URINE NEGATIVE (NEGATIVE); BLOOD URINE NEGATIVE (NEGATIVE); COLOR YELLOW; GLUCOSE URINE >1000 mg/dL (NEGATIVE); KETONE URINE >150 mg/dL (NEGATIVE); LEUKOCYTES URINE NEGATIVE (NEGATIVE); NITRITE URINE NEGATIVE (NEGATIVE); PROTEIN URINE 100 mg/dL (NEGATIVE); SP GRAVITY URINE 1.021; TURBIDITY URINE CLEAR (CLEAR); UROBILINOGEN URINE 2 mg/dL (NORMAL)
[2019-06-20 16:22] LABS: UR EPITHELIAL CELLS <10 /HPF (<10); URINE BACTERIA NEGATIVE /HPF; URINE RBC <10 /HPF (<10); URINE WBC <10 /HPF (<10)
[2019-06-20 16:22] LABS: AGAP 28; ALB/GLOB RATIO 0.9; ALBUMIN 3.1 g/dL (3.5-5.0); ALKALINE PHOSPHATASE 101 U/L (32-104); AMYLASE 51 U/L (20-200); BUN 6 mg/dL (8-22); CALCIUM 9.3 mg/dL (8.8-10.2); CHLORIDE 90 mmol/L (98-107); CK PROFILE 39 U/L (24-173); COSMO 279; CREATININE 0.8 mg/dL (0.5-0.9); GLUCOSE 361 mg/dL (70-104); GOT 19 U/L (10-30); GPT 48 U/L (10-36); LIPASE 110 U/L (13-60); MAGNESIUM 1.7 mg/dL (1.5-2.7); PHOSPHORUS 3.4 mg/dL (2.7-4.5); POTASSIUM 3.9 mmol/L (3.5-5.1); SODIUM 133 mmol/L (136-145); TCO2 15 mmol/L (25-35); TOTAL PROTEIN 6.7 g/dL (6.3-8.3)
[2019-06-20 16:27] LABS: UR AMPHETAMINES QUAL NONE DETECTED (NONE DETECT); UR BARBITUATES QUAL NONE DETECTED (NONE DETECT); UR BENZODIAZEPIN QUAL NONE DETECTED (NONE DETECT); UR CANNABINOIDS QUAL NONE DETECTED (NONE DETECT); UR COCAINE QUAL NONE DETECTED (NONE DETECT); UR METHADONE QUAL NONE DETECTED (NONE DETECT); UR OPIATES QUAL PRESUMPTIVE POSITIVE (NONE DETECT); UR OXYCODONE QUAL NONE DETECTED (NONE DETECT); UR PCP QUAL NONE DETECTED (NONE DETECT)
[2019-06-20 16:29] LABS: ACETONE SERUM SMALL (NEGATIVE)
[2019-06-20] MEDS ORDERED: HUMULIN R IV ONE (17:19)
[2019-06-20] MEDS ORDERED: SODIUM PHOSPHATE 30 MMOL in D5W 250 ML IV PRN ×2 (17:22→17:45)
[2019-06-20] MEDS ORDERED: MAGNESIUM SULFATE 2 GM/S.W.I. 2 GM/50 ML IVPB IV PRN ×2 (17:22→17:45)
[2019-06-20] MEDS ORDERED: POTASSIUM CHLORIDE 20% LIQUID PO PRN ×2 (17:22→17:45)
[2019-06-20] MEDS ORDERED: POTASSIUM CHLORIDE 10% LIQUID PO PRN ×2 (17:22→17:45)
[2019-06-20] MEDS ORDERED: SODIUM BICARBONATE 8.4% 100 MEQ in STERILE WATER INJ. 500 ML IV PRN ×2 (17:22→17:45)
[2019-06-20] MEDS ORDERED: POTASSIUM CHLORIDE 20 MEQ/SWI 20 MEQ/100 ML IVPB IV PRN ×3 (17:22→17:45)
[2019-06-20] MEDS ORDERED: D50W SYRINGE IV PRN ×3 (17:22→17:45)
[2019-06-20] MEDS ORDERED: HUMULIN R 100 UNIT in NS 100 ML IV SCH ×2 (17:30→17:45)
[2019-06-20] MEDS ORDERED: NS 1,000 ML IV SCH (17:30)
[2019-06-20] MEDS ORDERED: POTASSIUM CHLORIDE 40 MEQ/SWI 40 MEQ/100 ML IVPB IV PRN (17:45)
[2019-06-20] MEDS ORDERED: D5 NS 1,000 ML IV PRN (17:45)
--- NOTE | 2019-06-20 17:54 | PROVIDER DOCUMENTATION ---
This chart was entered by Jami Delgado Scribe, acting as scribe for Clemente Meek MD. HPI-Abdominal Pain/GI Problem - General Chief Complaint: DKA ALERT Stated Complaint: ABD PAIN Time Seen by Provider: 06/20/19 15:03 Source: patient Allergies/Adverse Reactions: Patient Allergies Allergy/AdvReac Type Severity Reaction Status Date / Time No Known Allergies Allergy Verified 06/13/19 02:28 Home Medications: Home Medication List Medication Instructions Recorded Confirmed Last Taken Type ATORVAstatin [Lipitor] 40 mg PO QHS #90 tab 06/18/19 Unknown Rx Insulin Humulin 70/30 [Humulin 25 unit SUBQ BID CC #6 insuln.pen 06/18/19 Unkn own Rx 70/30] Metoclopramide HCl [Reglan] 0.5 tab PO AC + HS #60 tab 06/18/19 Unknown Rx - History of Present Illness-ABD Nature of Presenting Problems: Pt is a 28 yof who presents to the ED via ems w/ severe abd pain. Pt was discharged from the hospital on the 8th after being admitted for DKA and pancreatitis. Pt states that her symptoms began 1 week ago. She states that she is vomiting consecutively. Pt states that she cant eat or sleep due to the pain. Pt presents to the ED in severe distress, screaming and yelling in pain. Abdominal Pain Onset Location: reports: generalized abdomen Quality of Pain: reports: aching, sharp Severity in ED: reports: severe Onset/Duration: reports: 1 week ago Timing: reports: still present Activities at Onset: reports: none Exposure to sick contacts?: No Modifying Factors: improves with: other (laying on side improves symptoms) Associated Symptoms: reports: nausea, vomiting Last BM: unsure Dark Stools Present?: reports: none noticed Rectal Bleeding: reports: none Rectal Pain: reports: none Bruising or Bleeding Gums?: No Similar Symptoms Previously?: Yes Recently seen or treated by another doctor?: Yes Review of Systems - Adult - REVIEW OF SYSTEMS - ADULT Constitutional: reports: see HPI Eyes: reports: no symptoms reported Ears, Nose, Mouth & Throat: reports: no symptoms reported Cardiovascular: reports: no symptoms reported Respiratory: reports: no symptoms reported Gastrointestinal: reports: see HPI, abdominal pain (generalized), nausea, poor appetite, vomiting Genitourinary: reports: no symptoms reported Musculoskeletal: reports: no symptoms reported Integumentary: reports: no symptoms reported Neurological: reports: see HPI Psychiatric: reports: no symptoms reported Endocrine: reports: no symptoms reported Hematologic/Lymphatic: reports: no symptoms reported Allergic/Immunologic: reports: no symptoms reported All Other Systems: Reviewed and Negative Past History - Adult - PAST MEDICAL HISTORY-ADULT Review of Records: reports: Old Records Reviewed Major Childhood Illnesses: reports: denies history Cardiovascular: reports: denies history Respiratory: reports: denies history Gastrointestinal: reports: pancreatitis Obstetrical/Gynecological: reports: denies history Genitourinary: reports: denies history Musculoskeletal: reports: denies history Neurological: reports: denies history Psychiatric: reports: denies history Endocrine/Immune: reports: Diabetes Diabetes Type: Type 2 Other Conditions: reports: denies history - SOCIAL HISTORY Smoking: non-smoker Substance Use: denies Living Situation: family Physical Exam-General - PHYSICAL EXAM-ADULT Exam Limited by: pt laying on side Initial Vital Signs Reviewed: Yes - CONSTITUTIONAL General Appearance: alert, mild distress - EYES Eyes: PERRL/EOMI, pink conjunctivae - HEAD, EARS, NOSE, MOUTH & THROAT HENMT: normocephalic/atraumatic, moist mucous membranes - NECK Neck: non-tender, full range of motion, normal inspection - RESPIRATORY Respiratory: chest non-tender, lungs clear - CARDIOVASCULAR Cardiovascular: normal peripheral pulses, regular rate, rhythm - GASTROINTESTINAL (ABDOMEN) Abdominal Exam: normal bowel sounds, non tender, soft. negative: guarding, rebound - LYMPHATIC Lymphatic: no adenopathy - MUSCULOSKELETAL Back Exam: normal inspection, no CVA tenderness, no vertebral tenderness Extremity: normal range of motion, normal inspection - SKIN Integumentary: warm/dry, other (molluscum contagiosum, to bilateral elbows and lower extremities) - NEUROLOGIC Neurologic: grossly normal - PSYCHIATRIC Psych/Mental Status: normal mood/affect, normal thought content, normal thought process, oriented x 3, anxious Progress - PLAN OF CARE/RESULTS Progress/Plan/Lab Results: Vital Signs - 8 hr 06/20/19 14:52 Temperature 98.1 F Pulse Rate 132 H Respiratory Rate 28 H Blood Pressure 126/94 O2 Sat by Pulse Oximetry 100 Orders Category Date Time Status Cardiac Monitoring DIRECTED Care 06/20/19 15:08 Active ED: Urine Bedside NOW Care 06/20/19 15:08 Active FSBS/Accucheck Result NOW Care 06/20/19 15:08 Active FSBS/Accucheck Result Q1H Care 06/20/19 15:08 Active Notify Physician As Ordered Care 06/20/19 15:10 Active Saline Loc NOW Care 06/20/19 15:08 Active Vital Signs Order Q1H Care 06/20/19 15:08 Active ABG [RESP] Routine Lab 06/20/19 15:07 Ordered ACETONE SERUM [CHEM] Stat Lab 06/20/19 15:08 Uncollected AMYLASE [CHEM] Stat Lab 06/20/19 15:09 Uncollected BLOOD CULTURE [BLDCUL] Stat Lab 06/20/19 15:10 Uncollected CBC WITH DIFF [HEME] Stat Lab 06/20/19 15:07 Uncollected CK PROFILE [SP CHEM] Stat Lab 06/20/19 15:08 Uncollected COMPREHENSIVE METABOLIC PANEL [CHEM] Stat Lab 06/20/19 15:07 Uncollected LACTATE, PLASMA [CHEM] Q3H Lab 06/20/19 18:15 Uncollected LACTATE, PLASMA [CHEM] Q3H Lab 06/20/19 21:15 Uncollected LACTATE, PLASMA [CHEM] Stat Lab 06/20/19 15:08 Uncollected LIPASE [CHEM] Stat Lab 06/20/19 15:09 Uncollected MAGNESIUM [CHEM] Stat Lab 06/20/19 15:07 Uncollected PHOSPHORUS [CHEM] Stat Lab 06/20/19 15:08 Uncollected TROPONIN T HIGH SENSITIVITY Stat Lab 06/20/19 15:08 Uncollected URINALYSIS [URINALYSIS] Stat Lab 06/20/19 15:08 Uncollected URINE DRUG SCREEN Stat Lab 06/20/19 15:08 Uncollected 0.9% Sodium Chloride Inj [Ns] 1,000 ml Med 06/20/19 15:07 Active IV 999 mls/hr Hydromorphone [Dilaudid] Med 06/20/19 15:07 Discontinued 1 mg IV NOW ONE Prochlorperazine [Compazine] Med 06/20/19 15:07 Discontinued 10 mg IV NOW ONE EKG [EKG] Routine Ther 06/20/19 15:08 Ordered Result Diagrams: 06/20/19 15:36 06/20/19 15:36 - REASSESSMENT Reassessment #2 Time Reassessed: 16:50 Status: improving ((w/ Rx given); labs suggest mixed disorder w/ acute resp alkalosis as well as metab (keto-)acidosis. BGL elev suggx likely recurrent DKA. will admit) - CONSULTS/PCP/HOSPITALIST Notification #1 *Consult/PCP/Hospitalist*: Dr. Sifuentes Time Discussed: 17:34 Reason/Comments: Discuss admission Consult Disposition: Admit (accepts admission) Departure - Departure Date of Disposition Decision: 06/20/19 Time of Disposition Decision: 17:30 DIAGNOSIS: Diabetic ketoacidosis without coma associated with type 1 diabetes mellitus, Pancreatitis, acute, Intractable vomiting, Gastroparesis diabeticorum Disposition: ADMITTED INPATIENT 09 Certified Medical Emergency: Emergent Condition: Critical Referrals and Follow-Ups: None,PCP [Primary Care Provider] - - Critical Care Note This patient required my direct & personal management of CC.: Yes Total Time (mins): 40 Critical Care Statement: This patient required my direct personal management to treat or rule out processes, the absence of which, could potentiallly result in sudden, clinically significant life or limb threatening deterioration. Attestation - Physician/ MARISELA Attestation Patient care was provided by Advanced Practice Provider:: No The physician spent face to face time with patient:: Yes Advanced Practice Provider documentation review:: Supervising physician onsite and consulted in the evaluation and care of this patient. The physician did have a face to face encounter with the patient. This chart was documented by the indicated scribe, (Jami Delgado Scribe) and accurately reflects the services I performed and decisions made by me, Clemente Meek MD, as attested by the provider's signature.
[2019-06-20] MEDS ORDERED: SODIUM CHLORIDE 0.9% INJ SCH (18:00)
[2019-06-20] MEDS: NS 1,000 ML IV SCH (18:09)
--- NOTE | 2019-06-20 18:51 | Diag Imaging Result Doc PS360 ---
EXAM: CHEST-1 VIEW HISTORY: dyspnea/recent pneumonia TECHNIQUE: Single view COMPARISON: 06/18/2019 FINDINGS: The lungs are well expanded. The heart is not enlarged. The vessels are not distended. Minimal increased markings in the right base. No effusion identified. IMPRESSION: Interval improvement Electronically signed by Jackson Camejo 06/20/2019 6:49 PM
[2019-06-20] MEDS: REGLAN IV SCH (18:54)
[2019-06-20] MEDS: DILAUDID IV PRN ×2 (18:55→22:57)
[2019-06-20 19:20] LABS: AGAP 21; BUN 6 mg/dL (8-22); CALCIUM 8.8 mg/dL (8.8-10.2); CHLORIDE 98 mmol/L (98-107); COSMO 278; CREATININE 0.7 mg/dL (0.5-0.9); ESTIMATED GFR > 60; GLUCOSE 292 mg/dL (70-104); MAGNESIUM 1.6 mg/dL (1.5-2.7); PHOSPHORUS 2.8 mg/dL (2.7-4.5); POTASSIUM 3.1 mmol/L (3.5-5.1); SODIUM 135 mmol/L (136-145); TCO2 16 mmol/L (25-35)
--- NOTE | 2019-06-20 21:17 | HISTORY AND PHYSICAL ---
PRIMARY CARE PHYSICIAN: None. CHIEF COMPLAINT: Persistent nausea, vomiting, and abdominal pain for the last week. HISTORY OF PRESENT ILLNESS: Ms. Dave is a 28-year-old female, with a history of poorly controlled insulin-dependent diabetes mellitus and lupus, who presented to the ER today with a chief complaint of 1 week of increasing nausea, vomiting, and abdominal pain. The patient was recently discharged from [facility] on 06/18/2019 after being admitted for DKA and pneumonia, as well as acute on chronic pancreatitis. During this hospitalization, the patient was also diagnosed with diabetic gastroparesis. Today, upon presentation, the patient states that she has felt ill since discharge. She states that she has been unable to keep any food or liquid down, and describes her vomitus as bilious in nature. In the ER, the patient was noted to be in DKA with anion gap of 28 with a small acetone. Also, the patient was noted to have acute on chronic pancreatitis. While in the ER, the patient was started on IV fluids and an insulin drip. PAST MEDICAL HISTORY: 1. Insulin-dependent diabetes mellitus. 2. Lupus. 3. Chronic pancreatitis. 4. Diabetic gastroparesis. PAST SURGICAL HISTORY: 1. Cholecystectomy. 2. x2. 3. Right hand surgery. ALLERGIES: No known drug allergies. SOCIAL HISTORY: The patient has 2 kids. She states that she quit smoking last Sunday, but prior to that she smoked about 7 cigarettes a day. The patient states that she quit drinking alcohol 4 years ago. She denies any illicit drug use. REVIEW OF SYSTEMS: A 12-point review of systems has been performed. Please refer to the History of Present Illness for pertinent positives and negatives. HOME MEDICATIONS: 1. Lipitor 40 mg oral at bedtime. 2. Humulin 70/30 at 25 units subcutaneous twice a day. 3. Reglan 5 mg before each meal and at bedtime. PHYSICAL EXAMINATION: VITAL SIGNS: Temperature 98.6 degrees, blood pressure 113/68, heart rate 114, respirations 19, O2 saturation 97% on room air. GENERAL: This is a young female lying on the stretcher in no acute distress. SKIN: The patient has multiple eruptions on her arms and legs. HEART: S1, S2 normal. Tachycardic. LUNGS: Clear to auscultation bilaterally. No wheezing. No rales. No rhonchi. ABDOMEN: Positive bowel sounds. Soft. Positive for epigastric tenderness. EXTREMITIES: No edema, no cyanosis, no calf tenderness. NEUROLOGIC: The patient is alert and oriented x4. No focal neurologic deficits noted. Cranial nerves 2 through 12 intact. LABORATORY DATA: White blood cell count 11.9, hemoglobin 11, hematocrit 36, platelets 283,000. ABGs: pH 7.46, pCO2 19, pO2 97, bicarb 18. Sodium 133, potassium 3.9, chloride 90, CO2 15, anion gap of 28, BUN 6, creatinine 0.8, glucose 361, calcium 9.3, magnesium 1.7, phosphorus 3.4, AST 19, ALT 48, alkaline phosphatase 101, CK 39, albumin 3.1, lipase 110. UA greater than 1000 for glucose, small acetone, positive for opiates. ASSESSMENT AND PLAN: 1. Diabetic ketoacidosis. We will admit the patient to [facility] and start the diabetic ketoacidosis protocol, to include an insulin drip and intravenous fluids. Will monitor the patient's blood glucose every hour and a BMP with electrolytes every 4 hours. We will transition the patient to subcutaneous insulin once the anion gap has closed. 2. Acute on chronic pancreatitis. The patient will be made n.p.o. The patient is on intravenous fluids. We will also start antiemetics and p.r.n. pain medication. 3. Lupus. The patient has not been seen by clinical psychiatrist since her diagnosis several years ago. We will likely need to refer the patient to a clinical psychiatrist as outpatient. 4. Diabetic gastroparesis. We will restart Reglan before each meal. 5. Fatty liver disease. Aware. 6. Gastrointestinal prophylaxis. We will start intravenous Protonix. 7. Deep vein thrombosis prophylaxis. We will start the patient on Lovenox. cc: Sameera Jimenes MD [facility]
[2019-06-20] MEDS: TYLENOL PO PRN (22:28)
[2019-06-20] MEDS ORDERED: TUMS PO ONE (23:51)
[2019-06-21] MEDS: REGLAN IV SCH ×4 (00:54→18:22)
[2019-06-21 00:57] LABS: AGAP 20; BUN 4 mg/dL (8-22); CALCIUM 8.4 mg/dL (8.8-10.2); CHLORIDE 98 mmol/L (98-107); COSMO 275; CREATININE 0.6 mg/dL (0.5-0.9); ESTIMATED GFR > 60; GLUCOSE 201 mg/dL (70-104); POTASSIUM 3.2 mmol/L (3.5-5.1); SODIUM 136 mmol/L (136-145); TCO2 18 mmol/L (25-35)
[2019-06-21] MEDS: NS 1,000 ML IV SCH ×3 (02:00→09:42)
[2019-06-21 02:06] LABS: AGAP 18; BUN 4 mg/dL (8-22); CALCIUM 8.2 mg/dL (8.8-10.2); CHLORIDE 99 mmol/L (98-107); COSMO 271; CREATININE 0.6 mg/dL (0.5-0.9); ESTIMATED GFR > 60; GLUCOSE 162 mg/dL (70-104); MAGNESIUM 1.8 mg/dL (1.5-2.7); POTASSIUM 2.9 mmol/L (3.5-5.1); SODIUM 135 mmol/L (136-145); TCO2 18 mmol/L (25-35)
[2019-06-21] MEDS ORDERED: POTASSIUM CHLORIDE 10% LIQUID PO PRN (02:34)
[2019-06-21] MEDS ORDERED: POTASSIUM CHLORIDE 20% LIQUID PO PRN (02:34)
[2019-06-21] MEDS: DILAUDID IV PRN ×5 (02:56→20:08)
[2019-06-21] MEDS: TYLENOL PO PRN (04:37)
[2019-06-21] MEDS: PROTONIX IV SCH (06:11)
[2019-06-21 07:35] LABS: BASO# 0.03 X1000 (0.0-0.2); BASO% 0.3 % (0.0-0.8); EOS# 0.31 X1000 (0.0-0.7); EOS% 3.5 % (0.0-10.0); HEMATOCRIT 31.8 % (37.0-47.0); IMM GRAN# 0.06 X1000 (0.0-0.04); IMM GRAN% 0.7 % (0.0-0.5); LYMPH% 16.8 % (20.5-51.1); MCH 27.9 PG (27-31); MCHC 31.4 g/dL (33-37); MCV 88.6 FL (81-99); MONO# 1.21 X1000 (0.11-0.59); MONO% 13.6 % (1.7-9.3); MPV 10.7 FL (7.4-10.4); NEUT% 65.1 % (42.2-75.2); PLT 236 X1000 (130-400); RBC 3.59 XMIL (4.2-5.4); WBC 8.91 X1000 (4.8-10.8)
[2019-06-21] MEDS: LOVENOX SUBQ SCH ×2 (07:52→08:14)
[2019-06-21 08:36] LABS: AGAP 16; ALBUMIN 2.7 g/dL (3.5-5.0); BUN 4 mg/dL (8-22); CHLORIDE 102 mmol/L (98-107); COSMO 271; CREATININE 0.6 mg/dL (0.5-0.9); ESTIMATED GFR > 60; GLUCOSE 170 mg/dL (70-104); PHOSPHORUS 2.6 mg/dL (2.7-4.5); POTASSIUM 3.8 mmol/L (3.5-5.1); SODIUM 135 mmol/L (136-145); TCO2 17 mmol/L (25-35)
[2019-06-21] MEDS ORDERED: HUMULIN 70/30 SUBQ ONE (09:15)
[2019-06-21] MEDS: COLACE PO SCH ×2 (09:43→20:09)
[2019-06-21] MEDS: HUMULIN R SUBQ SCH ×4 (09:44→21:30)
[2019-06-21] MEDS: MIRALAX PO SCH (09:44)
--- NOTE | 2019-06-21 10:40 | Diag Imaging Result Doc PS360 ---
EXAM: ABDOMEN FLAT/UPRIGHT INDICATION: abdominal pain TECHNIQUE: 2 views COMPARISON: None. FINDINGS: There are unremarkable bowel gas and stool patterns. There is no obstructive bowel pattern. There is no evidence of large volume free abdominal gas. Cholecystectomy clips are noted. IMPRESSION: No evidence of acute pathology by plain radiograph. Electronically signed by Timoteo Mann 06/21/2019 10:37 AM
--- NOTE | 2019-06-21 11:18 | PROGRESS NOTE ---
DATE: 06/21/2019 Ms. Dave is a 28-year-old female. She was admitted yesterday on 06/20/2019 for diabetic ketoacidosis. The patient's nurse notified me this morning that the patient was refusing to have arterial blood gases and her routine labs that are needed to be drawn per the diabetic ketoacidosis protocol as well as any fingerstick blood sugars. At that time until I could go and speak with the patient, I did tell him to stop all medications including her insulin drip until I was able to go and speak with her. I did go to the PVC. Unit upon my arrival to the room, the patient was resting in bed with her eyes closed. She was easily arousable with verbal and light tactile stimulation. I did introduce myself and question the patient about why she was not wanting to have labs and fingerstick blood sugars performed. She reported to me that it's because she needed to get some sleep. I did explain to the patient the importance of these diagnostic studies, given the medications that she is on and that diabetic ketoacidosis is a serious condition that if not managed appropriately and safely could result in adverse outcomes and . I did inform her that she could not be on insulin and not monitor her fingerstick blood sugars. Also, that we could not treat her electrolytes appropriately without rechecking them at timed intervals. I did ask that the patient allow us to continue to perform arterial blood gases, laboratory blood draws and fingerstick blood sugars so that we could safely monitor and manage her medication and condition appropriately. She did agree to allowing to have laboratory studies drawn and fingerstick blood sugars, though did not wall any further arterial blood gases. I informed the patient that would be okay for this morning and that I would let Dr. Jimenes know what she was requesting and let her make further decisions about any further arterial blood gas draws. The patient was in agreement. I did notify the patient's nurse that the patient was going to allow us to draw all labs and do fingerstick blood sugars and that we could continue her medications back per her regular orders and DKA protocol. I also did call Dr. Jimenes and informed her of the patient's refusal for arterial blood gases, laboratory studies and fingerstick blood sugars this morning. I did update her on the patient's request. Further orders and recommendations pending hospital course, diagnostic studies, and physician evaluation. Dictated by ILYA Tyler for Sameera Jimenes MD cc: Sameera Jimenes MD [facility]
--- NOTE | 2019-06-21 20:01 | PROGRESS NOTE ---
DATE: 06/21/2019 SUBJECTIVE: The patient complains of abdominal pain mainly in the right upper quadrant. OBJECTIVE: Vital Signs: Temperature 97.3 degrees, blood pressure 106/47, heart rate 98, respirations 16, O2 saturation 98% on room air. General: This is a young female lying in bed in no acute distress. Abdomen: Positive bowel sounds. Soft, nontender, nondistended. Heart: S1, S2 normal. Regular rate and rhythm. Lungs: Clear to auscultation bilaterally. Extremities: No edema, no cyanosis. Neuro: The patient is alert and oriented x4. LABS: White blood cell count 8.9, hemoglobin 10, hematocrit 31, platelets 236,000. Sodium 135, potassium 3.8, chloride 102, CO2 17, BUN 4, creatinine 0.6, glucose 170, anion gap 16. ASSESSMENT AND PLAN: 1. Diabetic ketoacidosis. The patient's anion gap has closed. Will transition the patient to 70/30 insulin as well as sliding scale insulin. We will also consult with the dietitian for diabetic teaching for the patient. 2. Poorly controlled insulin-dependent diabetes mellitus. The patient has been started back on Humulin 70/30. We will monitor her blood sugars closely. 3. Chronic pancreatitis. Continue to monitor closely for improvement. The patient continues to complain of continuous abdominal pain. Will consult with GI for further recommendations. 4. Fatty liver disease. Aware. 5. Lupus. The patient's inflammatory markers are elevated. We will await the rest of the serologies. 6. Diabetic gastroparesis. Continue on Reglan before each meal. 7. Gastrointestinal prophylaxis. Continue on Protonix. 8. Deep vein thrombosis prophylaxis. Continue on Lovenox. cc: Sameera Jimenes MD
[2019-06-21] MEDS: ZOFRAN IV PRN (20:09)
[2019-06-21] MEDS: HUMULIN 70/30 SUBQ SCH (20:09)
[2019-06-21] MEDS ORDERED: INSULIN PEN NEEDLES ONE (20:23)
[2019-06-22] MEDS: DILAUDID IV PRN ×7 (00:35→22:13)
[2019-06-22] MEDS: REGLAN IV SCH ×5 (00:35→18:53)
[2019-06-22] MEDS: HUMULIN R SUBQ SCH ×6 (01:30→21:17)
[2019-06-22] MEDS: TYLENOL PO PRN ×2 (03:36→08:06)
[2019-06-22] MEDS: PROTONIX IV SCH ×2 (05:03→08:05)
[2019-06-22 07:00] LABS: BASO# 0.03 X1000 (0.0-0.2); BASO% 0.4 % (0.0-0.8); EOS# 0.22 X1000 (0.0-0.7); EOS% 2.7 % (0.0-10.0); HEMATOCRIT 31.3 % (37.0-47.0); HEMOGLOBIN 9.7 g/dL (12.0-16.0); IMM GRAN# 0.06 X1000 (0.0-0.04); IMM GRAN% 0.7 % (0.0-0.5); LYMPH# 1.66 X1000 (1.2-3.4); LYMPH% 20.1 % (20.5-51.1); MCH 27.6 PG (27-31); MCV 88.9 FL (81-99); MONO# 1.07 X1000 (0.11-0.59); MPV 10.8 FL (7.4-10.4); NEUT# 5.22 X1000 (1.4-6.5); NEUT% 63.1 % (42.2-75.2); PLT 247 X1000 (130-400); RBC 3.52 XMIL (4.2-5.4); RDW 13.9 % (11.5-14.5); WBC 8.26 X1000 (4.8-10.8)
[2019-06-22 07:34] LABS: AGAP 15; ALBUMIN 2.6 g/dL (3.5-5.0); BUN 2 mg/dL (8-22); CALCIUM 8.8 mg/dL (8.8-10.2); CHLORIDE 100 mmol/L (98-107); COSMO 272; CREATININE 0.6 mg/dL (0.5-0.9); ESTIMATED GFR > 60; GLUCOSE 137 mg/dL (70-104); PHOSPHORUS 4.3 mg/dL (2.7-4.5); POTASSIUM 3.4 mmol/L (3.5-5.1); SODIUM 137 mmol/L (136-145); TCO2 22 mmol/L (25-35)
[2019-06-22] MEDS ORDERED: KLOR-CON PO ONE (07:44)
[2019-06-22] MEDS: HUMULIN 70/30 SUBQ SCH ×2 (08:40→21:17)
[2019-06-22] MEDS: COLACE PO SCH ×2 (08:45→21:16)
[2019-06-22] MEDS: MIRALAX PO SCH (08:46)
[2019-06-22] MEDS: LOVENOX SUBQ SCH (08:47)
[2019-06-22] MEDS: NS 1,000 ML IV SCH (11:54)
[2019-06-22] MEDS: BENTYL PO PRN ×2 (12:37→22:13)
--- NOTE | 2019-06-22 18:09 | PROGRESS NOTE ---
DATE: 06/22/2019 SUBJECTIVE: The patient states that she is no longer nauseous, but she is still having a lot of abdominal pain. She had a small bowel movement earlier today. OBJECTIVE: Vital Signs: Temperature 98.7 degrees, blood pressure 98/48, heart rate 88, respirations 16, O2 saturation 98% on room air. General: This is a young female lying in bed in no acute distress. Heart: S1, S2 normal. Regular rate and rhythm. Lungs: Equal air entry bilaterally. No wheezing. No rales. Abdomen: Positive bowel sounds. Soft. Positive for splenomegaly. Extremities: No edema. No cyanosis. Neurologic: The patient is alert and oriented x3. LABORATORY DATA: Sodium 137, potassium 3.4, BUN 2, creatinine 0.6, and glucose 137. ASSESSMENT AND PLAN: 1. Diabetic ketoacidosis. Resolved. 2. Poorly controlled insulin-dependent diabetes mellitus. Continue on Humulin 70/30 and sliding scale insulin. 3. Chronic pancreatitis. Slowly improving. 4. Fatty liver disease. Aware. 5. Diabetic gastroparesis. Continue on Reglan before each meal. 6. Lupus. The serologies are currently pending. The patient's inflammatory markers are elevated. The patient will need to be referred to a powerhouse mechanic apprentice as outpatient. 7. Gastrointestinal prophylaxis. Continue on Protonix. 8. Deep vein thrombosis prophylaxis. Continue on Lovenox. cc: Sameera Jimenes MD
--- NOTE | 2019-06-22 18:26 | GASTROENTEROLOGY CONSULTATION ---
DATE: 06/21/2019 REASON FOR CONSULTATION: Chronic pancreatitis. HISTORY OF PRESENT ILLNESS: Ms. Dave is a 28-year-old female who has a history of insulin-dependent diabetes. She also has a history of lupus, which is untreated. The patient presented to the ER on Sunday with complaints of nausea, vomiting, and abdominal pain. She was recently in the hospital recently for DKA, pneumonia, and acute on chronic pancreatitis, and gastroparesis, and was discharged on 06/18/2019. She is back to the hospital with the same problem. Patient complained that she has got diarrhea and her last bowel movement was liquid in consistency. Abdominal pain is 10/10 and described the pain as stabbing pain. She is smoker and smoke 6-7 cigarettes a day. Patient was diagnosed with lupus during childhood but has never been treated. PAST MEDICAL HISTORY: Insulin-dependent diabetes, lupus, chronic pancreatitis, diabetic gastroparesis, neuropathy, anxiety, GERD. PAST SURGICAL HISTORY: Cholecystectomy, x2, and right hand surgery. SOCIAL HISTORY: The patient is , has 2 kids. She smokes 6 to 7 cigarettes a day. Alcohol and Drugs: in the past including marijuana. FAMILY HISTORY: Her dad had lung cancer and colon cancer, and mom had gout. ALLERGIES: No known drug allergies. HOME MEDICATIONS: Atorvastatin 40 mg p.o. at bedtime, and Reglan 0.5 mg tablet before meals. REVIEW OF SYSTEMS: As per HPI. Otherwise, 12 point review of system is negative. PHYSICAL EXAMINATION: Vital Signs: Temperature 97.3, pulse 98, respirations 16, blood pressure 106/47, oxygen saturation 98% on room air. The patient's weight is 172 pounds. BMI is 24.0 kg/m2. General: She is alert, oriented x3, in no acute distress. HEENT: Pale conjunctivae. No icterus. PERRL. Neck: Supple. Lungs: Clear to auscultation in the anterior katz. Cardiovascular: Regular rate and rhythm. Abdomen: Distended. Has a umbilical hernia in the mid abdominal area and tender in the left upper quadrant. Active bowel sounds heard in all 4 quadrants. Extremities: No clubbing, no cyanosis, no edema. Pedal pulses 2+ present bilaterally. Neurological: Alert and oriented x3, and nonfocal. Cranial nerves 2-12 grossly intact. LABORATORY DATA: WBCs 8.91, RBC 3.59, hemoglobin 10.0, hematocrit is 31.8, platelet count is 336,000. Sodium is 135, potassium 3.8, chloride 102, carbon dioxide 17, anion gap 16, BUN 4, creatinine 0.6, glucose 170, calcium 8.0, phosphorus 2.6, albumin is 2.7. Urinalysis on 06/11/2019 showed protein of 100, glucose greater than 1000. Toxicology report showed small level of acetone and she was presented positive for urine opiates. IMAGING: Chest x-ray on 06/20 showed interval improvement. Abdominal x-ray today showed no evidence of acute pathology by plain radiograph. IMPRESSION AND PLAN: Abdominal pain Nausea and vomiting Acute on chronic pancreatitis Gastroparesis History of lupus - untreated PLAN: Ms. Dave is a 28-year-old female with a history of type 2 diabetes, lupus. Gastroenterology has been consulted for her acute on chronic pancreatitis. The patient is currently on antiemetic Zofran 4 mg and Reglan 5 mg every 6 hours scheduled. She is on gastrointestinal prophylaxis, Protonix 40 mg IV daily. The patient's diabetes is managed by insulin, Humulin subcutaneously on a sliding scale and Humulin 70/30 at 25 units subcutaneous twice a day. For her abdominal cramps, the patient is on Bentyl. If the patient's nausea and vomiting is worsening, we will plan to do an EGD. We will continue to monitor the patient, provide supportive care to the patient and follow the plan of care per PCP. This plan has been discussed with Dr. Jennings. Thank you for your consult. Please call us for any further questions or concerns. Dictated by ILYA Robledo for Danny Jennings MD cc: Danny Jennings MD [facility]
--- NOTE | 2019-06-22 20:17 | GASTROENTEROLOGY PROGRESS NOTE ---
DATE: 06/22/2019 SUBJECTIVE: Ms. Dave is a 28-year-old female. She has denied having any nausea today, but she is still complaining of generalized abdominal pain. OBJECTIVE: Vital Signs: Temperature 98.2 degrees, pulse 82, respirations 16, blood pressure 96/52, oxygen saturation 98% on room air. Her weight is 172 pounds. BMI is 24 kg/m2. General: She is alert, oriented x4, in no acute distress. HEENT: Pale conjunctivae. No icterus. PERRL Neck: Supple. Lungs: Clear to auscultation. Cardiovascular: Regular rate and rhythm. Abdomen: Soft, tender, mild distention. Active bowel sounds heard in all 4 quadrants. Extremities: No clubbing, no cyanosis, no edema. Pedal pulses 2+ present bilaterally. Neurologic: She is alert, oriented x3, and in no acute distress. LABORATORY DATA: WBCs are 8.26, RBC 3.52, hemoglobin 9.7, hematocrit is 31.3, platelet count is 247,000. Sodium 137, potassium 3.4, chloride 100, carbon dioxide 22, anion gap is 15, BUN is 2, creatinine 0.6, glucose is 137, calcium is 8.8, phosphorus is 4.3, albumin is 2.6. The patient's abdominal x-ray yesterday showed no evidence of any acute pathology. IMPRESSION AND PLAN: Abdominal pain Nausea and vomiting Diabetic ketoacidosis Chronic pancreatitis Gastroparesis Lupus - untreated PLAN: Ms. Dave is a 28-year-old female with a history of type 2 diabetes and untreated lupus. GI is following her for chronic pancreatitis. The patient has currently denied any nausea, vomiting. She is receiving Zofran and Reglan for her nausea and vomiting. She is on Protonix 40 mg IV twice daily. The patient is receiving Bentyl 10 mg for her abdominal cramps. We will continue to monitor the patient. If the patient's nausea and vomiting does not get resolved or it worsens, we will plan to do an EGD. This plan was discussed with Dr. Jennings. Please call us for any further questions or concerns. Dictated by ILYA Robledo for Danny Jennings MD cc: Danny Jennings MD [facility]
[2019-06-23] MEDS: REGLAN IV SCH ×2 (01:32→06:17)
[2019-06-23] MEDS: DILAUDID IV PRN ×3 (01:33→07:53)
[2019-06-23] MEDS: HUMULIN R SUBQ SCH ×3 (01:41→10:16)
[2019-06-23] MEDS: ZOFRAN IV PRN (04:16)
[2019-06-23] MEDS: PROTONIX IV SCH (06:16)
[2019-06-23 06:20] LABS: HEMATOCRIT 31.1 % (37.0-47.0); HEMOGLOBIN 9.5 g/dL (12.0-16.0); MCH 27.9 PG (27-31); MCHC 30.5 g/dL (33-37); MCV 91.2 FL (81-99); MPV 11.1 FL (7.4-10.4); RBC 3.41 XMIL (4.2-5.4); RDW 13.9 % (11.5-14.5); WBC 7.82 X1000 (4.8-10.8)
[2019-06-23 07:07] LABS: AGAP 12; ALBUMIN 2.7 g/dL (3.5-5.0); BUN 4 mg/dL (8-22); CHLORIDE 99 mmol/L (98-107); COSMO 271; CREATININE 0.6 mg/dL (0.5-0.9); ESTIMATED GFR > 60; GLUCOSE 105 mg/dL (70-104); PHOSPHORUS 4.9 mg/dL (2.7-4.5); POTASSIUM 3.4 mmol/L (3.5-5.1); SODIUM 137 mmol/L (136-145); TCO2 26 mmol/L (25-35)
[2019-06-23] MEDS ORDERED: KLOR-CON PO ONE (07:12)
[2019-06-23 07:36] VITALS: BP 111/63
[2019-06-23] MEDS: MIRALAX PO SCH (10:12)
[2019-06-23] MEDS: HUMULIN 70/30 SUBQ SCH (10:12)
[2019-06-23] MEDS: BENTYL PO PRN (10:14)
[2019-06-23] MEDS: COLACE PO SCH (10:15)
[2019-06-23] MEDS: LOVENOX SUBQ SCH (10:16)
--- NOTE | 2019-06-23 13:27 | GASTROENTEROLOGY PROGRESS NOTE ---
DATE: 06/23/2019 SUBJECTIVE: Ms. Dave is a 28-year-old female resting in bed. Family at the bedside. The patient has denied any nausea, vomiting, but has complained of mild abdominal tenderness. OBJECTIVE: Vital Signs: Temperature 98.4 degrees, pulse 84, respirations 20, blood pressure 111/63, oxygen saturation 99% on room air. The patient's weight is 173 pounds. BMI is 24.3 kg/m2. General: She is alert, oriented x3, in no acute distress. HEENT: Pale conjunctivae. No icterus. PERRL. Neck: Supple. Lungs: Clear to auscultation. Cardiovascular: Regular rate and rhythm. Abdomen: Soft, distended. Generalized tenderness. Active bowel sounds heard in all 4 quadrants. Extremities: No clubbing, no cyanosis, no edema. Pedal pulses 2+ present bilaterally. Neurologic: She is alert, oriented x3. LABORATORY DATA: WBCs are 7.82, RBC 3.41, hemoglobin 9.5, hematocrit is 31.1, platelet count is 245,000. Sodium is 137, potassium is 3.4, chloride 99, carbon dioxide 26, anion gap 12, BUN 4, creatinine 0.6, glucose 105, calcium is 9.4, phosphorus is 4.9, albumin is 2.7. The patient's ZAID reflex antibody was negative. The patient's Page antibodies were less than 0.2. The patient's double-stranded DNA antibody was 33, which was within the normal range. IMAGING: The patient's abdominal x-ray yesterday showed no evidence of acute pathology IMPRESSION AND PLAN: Chronic pancreatitis secondary to alcoholism and quit for few years. Abdominal pain Nausea and vomiting Gastroparesis History of Lupus PLAN: Ms. Dave is a 28-year-old female with a history of diabetes type 2 and lupus, which is untreated. GI is following her for her chronic pancreatitis. The patient denies any nausea and vomiting today. Patient will continue on low fat diet. Continue abstinence from alcohol completely. Start small frequenat meals 4-6 times per day. Counseled to keep good control of Diabetes. The patient has discharge orders to go home today. We will continue to monitor the her and follow her up as an outpatient in 4 to 6 weeks. This plan was discussed with Dr. Xavier. Please call us for any further questions or concerns. Dictated by ILYA Robledo for Jaspal Xavier MD cc: Jaspal Xavier MD I have seen and examined the patient myself and I agree with the above plan of care. I have discussed the above plan of care with the patient and all questions were answered. Please call us with any further questions. MTDD
--- NOTE | 2019-07-01 14:43 | DISCHARGE SUMMARY ---
ADMISSION DATE: 06/20/2019 DISCHARGE DATE: 06/23/2019 FINAL DISCHARGE DIAGNOSES: 1. Diabetic ketoacidosis. 2. Poorly-controlled insulin-dependent diabetes mellitus. 3. Chronic pancreatitis. 4. Fatty liver disease. 5. Diabetic gastroparesis. 6. History of lupus. HOSPITAL COURSE: Ms. Dave is a 28-year-old female with a history of poorly-controlled insulin- dependent diabetes, diabetic gastroparesis, fatty liver disease, and chronic pancreatitis, who presented to the ER with persistent abdominal pain, as well as nausea and vomiting. Initial laboratory studies indicated that the patient was in DKA, and so the patient was admitted to the Hospitalist Service, and started on IV fluids and the DKA protocol to include an insulin drip. The patient was admitted to [facility] overnight. By the following morning, the anion gap had closed, and the patient was transitioned to subcutaneous insulin. The patient continued to complain of persistent abdominal pain, so GI was consulted for further recommendations. It was recommended by GI that the patient eat frequent small meals, and institute a low-fat diet, and to abstain from alcohol completely. Also, the patient was counseled again about the importance of medication compliance as it relates to her diabetes. The patient continued to improve clinically, and was ultimately cleared for discharge home on 06/23/2019. DISCHARGE MEDICATIONS: 1. Lipitor 40 mg p.o. at bedtime. 2. Bentyl 10 mg oral 3 times a day p.r.n. 3. Colace 100 mg oral twice a day. 4. [place] 5/325 one tablet oral every 6 hours p.r.n. for pain. 5. Humulin 70/30, 25 units subcutaneously twice a day. 6. Reglan 5 mg oral 3 times a day before meals. 7. MiraLAX 17 grams oral daily. DISCHARGE DIET: An 1800 ADA diet with small frequent meals throughout the day. FOLLOWUP INSTRUCTIONS: The patient will need to follow up with Dr. Jennings as scheduled by his clinic. The patient will also need to follow up with Dr. Rodriguez as scheduled by his clinic as well. cc: Sameera Jimenes MD
== END 2019-06-23 10:26 | disposition home or self-care (01) | DRG 638 ==
LOC: SUPCPDRO → ED 14:49 → 2N 19:41 → 4N 06-21 17:23
PROVIDERS: ATTEND Internal Medicine

== ENCOUNTER 2019-09-27 10:40 | Inpatient (IN) ==
[2019-09-27 11:10] LABS: URINE SOURCE CLEAN CATCH
[2019-09-27 11:13] LABS: BILIRUBIN URINE NEGATIVE (NEGATIVE); BLOOD URINE NEGATIVE (NEGATIVE); COLOR YELLOW; GLUCOSE URINE >1000 mg/dL (NEGATIVE); KETONE URINE 40 mg/dL (NEGATIVE); LEUKOCYTES URINE SMALL (NEGATIVE); NITRITE URINE NEGATIVE (NEGATIVE); PROTEIN URINE TRACE mg/dL (NEGATIVE); TURBIDITY URINE CLEAR (CLEAR); UROBILINOGEN URINE NORMAL (NORMAL)
[2019-09-27 11:14] LABS: UR EPITHELIAL CELLS <10 /HPF (<10); URINE BACTERIA NEGATIVE /HPF; URINE RBC <10 /HPF (<10); URINE WBC 20-40 /HPF (<10)
[2019-09-27] MEDS ORDERED: DILAUDID IV ONE ×3 (11:14→14:16)
[2019-09-27] MEDS ORDERED: NS 1,000 ML IV ONE (11:14)
[2019-09-27] MEDS ORDERED: HUMULIN R IV ONE (11:14)
[2019-09-27] MEDS ORDERED: ZOFRAN IV ONE ×2 (11:15→14:16)
[2019-09-27 11:18] LABS: BASO# 0.05 X1000 (0.0-0.2); BASO% 0.3 % (0.0-0.8); EOS# 0.18 X1000 (0.0-0.7); EOS% 1.1 % (0.0-10.0); HEMATOCRIT 40.7 % (37.0-47.0); HEMOGLOBIN 16.7 g/dL (12.0-16.0); IMM GRAN# 0.03 X1000 (0.0-0.04); IMM GRAN% 0.2 % (0.0-0.5); LYMPH# 0.64 X1000 (1.2-3.4); LYMPH% 4.1 % (20.5-51.1); MCH 34.9 PG (27-31); MCV 85.1 FL (81-99); MONO# 2.74 X1000 (0.11-0.59); MONO% 17.4 % (1.7-9.3); MPV 12.1 FL (7.4-10.4); NEUT# 12.12 X1000 (1.4-6.5); NEUT% 76.9 % (42.2-75.2); PLT 231 X1000 (130-400); RBC 4.78 XMIL (4.2-5.4); RDW 14.3 % (11.5-14.5); WBC 15.76 X1000 (4.8-10.8)
[2019-09-27] MEDS ORDERED: HUMULIN R (PARKWAY) ONE ×2 (11:25→12:55)
--- NOTE | 2019-09-27 11:26 | PROVIDER DOCUMENTATION ---
HPI-Abdominal Pain/GI Problem - General Chief Complaint: Abdominal Pain Stated Complaint: ABD PAIN Time Seen by Provider: 09/27/19 11:03 Source: patient Allergies/Adverse Reactions: Patient Allergies Allergy/AdvReac Type Severity Reaction Status Date / Time No Known Allergies Allergy Verified 09/27/19 11:13 Home Medications: Home Medication List Medication Instructions Recorded Confirmed Last Taken Type ATORVAstatin [Lipitor] 40 mg PO QHS #90 tab 06/23/19 09/27/19 Unknown Rx Metoclopramide [Reglan] 5 mg PO TID AC #90 tab 06/23/19 09/27/19 Unknown Rx Insulin Humulin 70/30 [Humulin 12 unit SUBQ TID 09/27/19 Unknown History 7030] - History of Present Illness-ABD Nature of Presenting Problems: Pt has long h/o chronic panceatitis and presents today with LUQ pain and nausea. Had one episode of diarrhea [employer]. Denies any EtOH abuse as cause of her pancreatitis. Pt is a diabetic and did not take her insulin today. Last time she took insulin was yesterday afternoon and she ate cookies last night. FB is over 400 at presentation. Pt had positive test today as part of her work up and she is having an anxiety attack/panic attack. Had severe complications with prior causing at 7 months with resulting cerebral palsy. Abdominal Pain Onset Location: reports: LUQ, epigastric Pain Radiation: reports: no radiation Quality of Pain: reports: aching, sharp, stabbing Severity in ED: reports: severe Onset/Duration: reports: 4-6 hours ago Timing: reports: getting worse Activities at Onset: reports: none Modifying Factors: improves with: nothing Associated Symptoms: reports: anxiety, diarrhea, muscle aches, rash (molluscum contagiosum). denies: dizziness, EENT symptoms, fatigue, fever/chills, vomiting Review of Systems - Adult - REVIEW OF SYSTEMS - ADULT Constitutional: reports: fatique. denies: chills, fever, night sweats Eyes: denies: blurred vision, double vision Cardiovascular: denies: chest pain Respiratory: denies: cough, shortness of breath Gastrointestinal: reports: abdominal pain, diarrhea, nausea. denies: vomiting Integumentary: reports: rash (molluscum contagiosum to UEs) Psychiatric: reports: anxiety (just found out she is ) All Other Systems: Reviewed and Negative Past History - Adult - PAST MEDICAL HISTORY-ADULT Review of Records: reports: Old Records Reviewed, Nursing Assessment Review, Medications Reviewed Major Childhood Illnesses: reports: denies history Cardiovascular: reports: denies history Respiratory: reports: denies history Gastrointestinal: reports: pancreatitis Obstetrical/Gynecological: reports: other ([id number] pancreatitis attack with 2nd child had to have at 7 months and child now has cerebral palsy. Pt just found out she is and she is very anxious at this time du e to this news in addition to pain from possible pancreatitis) Genitourinary: reports: denies history Musculoskeletal: reports: denies history Neurological: reports: denies history Psychiatric: reports: denies history Endocrine/Immune: reports: denies history Other Conditions: reports: denies history - PRIOR SURGERIES/PROCEDURES Surgical/Procedure History: reports: - SOCIAL HISTORY Smoking: quit less than 1 year (states "I don't smoke as of today"), less than 1 pack/day Alcohol Use Frequency: never Living Situation: family Physical Exam-General - PHYSICAL EXAM-ADULT Initial Vital Signs Reviewed: Yes - CONSTITUTIONAL General Appearance: appears well, alert, moderate distress, anxious - EYES Eyes: PERRL/EOMI, pink conjunctivae - HEAD, EARS, NOSE, MOUTH & THROAT HENMT: normocephalic/atraumatic, moist mucous membranes - NECK Neck: non-tender, full range of motion, supple - RESPIRATORY Respiratory: chest non-tender, lungs clear, normal breath sounds. negative: crackles, rales, rhonchi, stridor, wheezing - CARDIOVASCULAR Cardiovascular: regular rate, rhythm, no edema - GASTROINTESTINAL (ABDOMEN) Abdominal Exam: normal bowel sounds, guarding, tenderness (generalized tenderness with moderate tenderness to LUQ). negative: distended, rigid, rebound, hernia, mass - MUSCULOSKELETAL Back Exam: normal inspection, no CVA tenderness, no vertebral tenderness Extremity: normal gait, normal inspection - SKIN Integumentary: normal color, normal turgor, warm/dry, rash (white/clear domes wi th umbilicated centers scattered on bilateral posterior elbows and forearms) - NEUROLOGIC Neurologic: grossly normal, no motor/sensory deficits - PSYCHIATRIC Psych/Mental Status: anxious (just found out she had a postive test), tearful Progress - PLAN OF CARE/RESULTS Progress/Plan/Lab Results: Vital Signs - 8 hr 09/27/19 10:41 Temperature 97.6 F Pulse Rate 96 H Respiratory Rate 18 Blood Pressure 132/90 O2 Sat by Pulse Oximetry 98 Bedside Urine ED: Urine Bedside Start: 09/27/19 10:59 Freq: Status: Active Protocol: Activity Type Activity Date Activity User E-Sign Co-Sign Detail Recorded Client Recorded Date Recorded By Document 09/27/19 10:59 [id number] 09/27/19 10:59 [id number] 09/27/19 10:59 Point of Care [Bedside Point of Care] -Lot # [id number] - Results Weak Positive -Control Line Visible? Yes -Additional Comment sb Laboratory Results - last 24 hr 09/27/19 09/27/19 10:51 11:00 WBC 15.76 H RBC 4.78 Hgb 16.7 H Hct 40.7 MCV 85.1 MCH 34.9 H MCHC 41.0 H RDW Std Deviation 14.3 Plt Count 231 MPV 12.1 H Immature Gran % (Auto) 0.2 Neut % (Auto) 76.9 H Lymph % (Auto) 4.1 L [place] % (Auto) 17.4 H Eos % (Auto) 1.1 Baso % (Auto) 0.3 Immature Gran # (Auto) 0.03 Neut # (Auto) 12.12 H Lymph # (Auto) 0.64 L [place] # (Auto) 2.74 H Eos # (Auto) 0.18 Baso # (Auto) 0.05 Urine Source CLEAN CATCH Urine Color YELLOW Urine Turbidity CLEAR Urine pH 6.0 Ur Specific [place] 1.042 Urine Protein TRACE A Ur Glucose (Stick) >1000 A Ur Ketones (Stick) 40 A Urine Blood NEGATIVE Urine Nitrite NEGATIVE Urine Bilirubin NEGATIVE Urobilinogen Dipstick NORMAL Urine Leukocytes SMALL A Urine WBC (Auto) 20-40 A Urine RBC (Auto) <10 U Epithel Cells (Auto) <10 Urine Bacteria (Auto) NEGATIVE Orders Category Date Time Status Saline Loc DIRECTED Care 09/27/19 10:55 Active NPO Diet 09/27/19 10:55 Active AMYLASE [CHEM] Stat Lab 09/27/19 11:00 Received CBC WITH ELECTRONIC DIFF [HEME] Stat Lab 09/27/19 11:00 Completed COMPREHENSIVE METABOLIC PANEL [CHEM] Stat Lab 09/27/19 11:00 Received LIPASE [CHEM] Stat Lab 09/27/19 11:00 Received TEST-URINE [PREG] Stat Lab 09/27/19 10:51 Received URINALYSIS W/POSS RFLX CULT [URINALYSIS] Stat Lab 09/27/19 10:51 Completed 0.9% Sodium Chloride Inj [Ns] 1,000 ml Med 09/27/19 11:14 Active IV 999 mls/hr Hydromorphone [Dilaudid] Med 09/27/19 11:14 Discontinued 0.5 mg IV NOW ONE Insulin Human Regular [Humulin R] Med 09/27/19 11:14 Discontinued 7.7 unit IV ONCE ONE Ondansetron [Zofran] Med 09/27/19 11:15 Discontinued 4 mg IV NOW ONE Result Diagrams: 09/27/19 11:00 09/27/19 11:00 - REASSESSMENT Reassessment #1 Time Reassessed: 12:52 (pt actively vomiting, reports "I feel like I'm going to ") Status: worsening - CONSULTS/PCP/HOSPITALIST Notification #1 *Consult/PCP/Hospitalist*: Bradley Time Discussed: 12:53 Consult Disposition: Will see in ED Departure - Departure Date of Disposition Decision: 09/27/19 Time of Disposition Decision: 12:53 DIAGNOSIS: Hyponatremia, Hyperglycemia due to diabetes mellitus Pancreatitis, acute Qualifiers: Pancreatitis type: unspecified pancreatitis type Acute pancreatitis complication: unspecified Qualified Code(s): K85.90 - Acute pancreatitis without necrosis or infection, unspecified Disposition: ADMITTED INPATIENT 09 Certified Medical Emergency: Emergent Condition: Stable Referrals and Follow-Ups: None,PCP [Primary Care Provider] - - Critical Care Note This patient required my direct & personal management of CC.: No Attestation - Physician/ MARISELA Attestation Patient care was provided by Advanced Practice Provider:: Yes Advanced Practice Provider:: Alondra Onofre Advanced Practice Provider documentation review:: The Mid-level provider documentation, treatment plan and medical decision making was reviewed by the physician who agrees with all treatment and medical decision making by the MLP. The physician spent face to face time with patient:: Yes (Dr. Cooney at bedside to review labs) Advanced Practice Provider documentation review:: Supervising physician onsite and consulted in the evaluation and care of this patient. The physician did have a face to face encounter with the patient.
[2019-09-27 11:41] LABS: SP GRAVITY URINE 1.015
[2019-09-27 12:23] LABS: ESTIMATED GFR > 60
[2019-09-27 12:28] LABS: AGAP 19; ALB/GLOB RATIO 1.3; ALBUMIN 3.9 g/dL (3.5-5.0); ALKALINE PHOSPHATASE 82 U/L (32-104); BUN 8 mg/dL (8-22); CALCIUM 8.4 mg/dL (8.8-10.2); COSMO 238; CREATININE 0.5 mg/dL (0.5-0.9); GOT 11 U/L (10-30); GPT 13 U/L (10-36); LIPASE 98 U/L (13-60); TCO2 15 mmol/L (25-35); TOTAL PROTEIN 6.7 g/dL (6.3-8.3)
[2019-09-27 12:47] LABS: CHLORIDE 80 mmol/L (98-107); POTASSIUM 3.8 mmol/L (3.5-5.1)
[2019-09-27 12:48] LABS: SODIUM 115 mmol/L (136-145)
[2019-09-27 12:49] LABS: GLUCOSE 474 mg/dL (70-104)
[2019-09-27] MEDS ORDERED: PHENERGAN IM ONE (12:52)
[2019-09-27 14:08] LABS: UR AMPHETAMINES QUAL NONE DETECTED (NONE DETECT); UR BARBITUATES QUAL NONE DETECTED (NONE DETECT); UR BENZODIAZEPIN QUAL NONE DETECTED (NONE DETECT); UR CANNABINOIDS QUAL NONE DETECTED (NONE DETECT); UR COCAINE QUAL NONE DETECTED (NONE DETECT); UR METHADONE QUAL NONE DETECTED (NONE DETECT); UR METHAMPHETAMINE QUAL NONE DETECTED (NONE DETECT); UR OPIATES QUAL NONE DETECTED (NONE DETECT); UR OXYCODONE QUAL NONE DETECTED (NONE DETECT); UR PCP QUAL NONE DETECTED (NONE DETECT); UR PROPOXYPHENE QUAL NONE DETECTED (NONE DETECT); UR TCA QUAL NONE DETECTED (NONE DETECT)
[2019-09-27] MEDS: NS 1,000 ML IV SCH ×2 (15:32→22:00)
[2019-09-27] MEDS: DILAUDID IV PRN ×3 (16:53→23:38)
[2019-09-27] MEDS: ZOFRAN IV PRN ×3 (16:53→23:38)
[2019-09-27] MEDS ORDERED: LANTUS INSULIN SUBQ ONE (17:05)
[2019-09-27] MEDS: HUMALOG (PARKWAY) SUBQ SCH ×2 (17:19→20:34)
--- NOTE | 2019-09-27 19:28 | HISTORY AND PHYSICAL ---
CHIEF COMPLAINT: Nausea. HISTORY OF PRESENT ILLNESS: The patient has a longstanding history of chronic pancreatitis. Her triglycerides in June were 2500. She does have diabetes on insulin as well. She presented to the hospital with abdominal pain and nausea stating that it was similar to her chronic pancreatitis. While in the ER she was noted to be . This, unfortunately, created a mild panic attack. This patient apparently has had difficulty with her last with a at 7 weeks. Currently, she is nauseated, having abdominal pain, and unable to really keep anything orally down. ALLERGIES: No known drug allergies. MEDICATIONS: Lipitor 40, [place] 5, and 70/30 insulin 12 units t.i.d. PAST MEDICAL HISTORY: Hypertriglyceridemia, chronic pancreatitis, diabetes, high cholesterol, and diabetic gastroparesis. SURGICAL HISTORY: She has had a . REVIEW OF SYSTEMS: Denies any fevers or chills. Notes she has been nauseated, vomiting, fatigue, epigastric abdominal pain, and having diarrhea. Denies dysuria, urinary frequency, urgency, or constipation. Denies melena, hematochezia, hemoptysis, or hematemesis. FAMILY HISTORY: Noncontributory. SOCIAL HISTORY: The patient states she no longer smokes; she just recently stopped. Denies alcohol or other illicit substance use. PHYSICAL EXAMINATION: VITAL SIGNS: Reviewed. Temperature 97.6 degrees, pulse 96, respiratory rate 18, BP 132/90, and saturation % on room air. GENERAL: She is awake and alert. She is in no current respiratory distress. The patient is anxious and having a mild panic attack. HEENT: Normocephalic. NECK: Supple. CARDIOVASCULAR: Regular rate. No murmurs. CHEST: Clear. Nonlabored. No wheezing. ABDOMEN: Soft. Tender in the epigastric region. EXTREMITIES: Moves all extremities. No edema. NEUROLOGIC: No changes. ASSESSMENT: 1. Acute pancreatitis on chronic. Likely secondary to her hypertriglyceridemia and diabetes. 2. Hypertriglyceridemia. 3. Diabetes. A1c pending. Currently blood sugars are elevated. 4. Nausea and vomiting. 5. First trimester . 6. Others. PLAN: We will continue the patient in the hospital. She currently is heme negative. Her sodium is 115, glucose 474. White count is 15. We are going to admit her to the hospital, IV fluids, keep her NPO, and pain control. We will follow. cc: Ramírez Huerta MD MTDD
[2019-09-27] MEDS: PHENERGAN IV PRN (21:50)
[2019-09-27] MEDS: SODIUM CHLORIDE 0.9% INJ PRN (21:51)
[2019-09-28] MEDS: DILAUDID IV PRN ×6 (02:35→22:25)
[2019-09-28] MEDS: PHENERGAN IV PRN ×3 (02:42→19:41)
[2019-09-28] MEDS: SODIUM CHLORIDE 0.9% INJ PRN (02:42)
[2019-09-28] MEDS: HUMALOG (PARKWAY) SUBQ SCH ×3 (05:29→08:01)
[2019-09-28] MEDS: ZOFRAN IV PRN ×2 (05:30→11:18)
[2019-09-28 06:43] LABS: HEMATOCRIT 43.4 % (37.0-47.0); MCH 31.5 PG (27-31); MCHC 36.9 g/dL (33-37); MCV 85.4 FL (81-99); RBC 5.08 XMIL (4.2-5.4); WBC 17.1 X1000 (4.8-10.8)
[2019-09-28 06:44] LABS: MPV 12.2 FL (7.4-10.4)
[2019-09-28 06:54] LABS: HEMOGLOBIN A1C 9.3 % (4.8-6.0)
[2019-09-28 07:02] LABS: HDL 5 mg/dL (45-65); MAGNESIUM 1.5 mg/dL (1.5-2.7)
[2019-09-28 07:24] LABS: CHOLESTEROL 868 mg/dL (0-200); TRIGLYCERIDES > 4425 mg/dL (35-135)
[2019-09-28 07:33] LABS: AGAP 24; ALBUMIN 2.9 g/dL (3.5-5.0); ALKALINE PHOSPHATASE 63 U/L (32-104); BUN 5 mg/dL (8-22); CALCIUM 7.8 mg/dL (8.8-10.2); CHLORIDE 89 mmol/L (98-107); COSMO 262; CREATININE 0.5 mg/dL (0.5-0.9); ESTIMATED GFR > 60; GOT < 5 U/L (10-30); GPT < 5 U/L (10-36); SODIUM 122 mmol/L (136-145); TCO2 9 mmol/L (25-35)
[2019-09-28 07:35] LABS: GLUCOSE 440 mg/dL (70-104)
[2019-09-28] MEDS ORDERED: POTASSIUM CHLORIDE 10% LIQUID PO PRN ×2 (08:39→11:23)
[2019-09-28] MEDS ORDERED: POTASSIUM CHLORIDE 20 MEQ/SWI 20 MEQ/100 ML IVPB IV PRN (08:39)
[2019-09-28] MEDS ORDERED: D50W SYRINGE IV PRN ×2 (08:39→11:22)
[2019-09-28] MEDS ORDERED: CARDIZEM IV ONE (08:39)
[2019-09-28] MEDS ORDERED: SODIUM PHOSPHATE 30 MMOL in D5W 250 ML IV PRN ×2 (08:39→11:24)
[2019-09-28] MEDS ORDERED: MAGNESIUM SULFATE 2 GM/S.W.I. 2 GM/50 ML IVPB IV PRN ×2 (08:39→11:23)
[2019-09-28] MEDS ORDERED: POTASSIUM CHLORIDE 40 MEQ/SWI 40 MEQ/100 ML IVPB IV PRN ×2 (08:39→11:22)
[2019-09-28] MEDS ORDERED: NS 1,000 ML IV SCH (08:41)
[2019-09-28] MEDS ORDERED: HUMULIN R (PARKWAY) SUBQ ONE (09:00)
[2019-09-28] MEDS ORDERED: HUMULIN R 100 UNIT in NS 100 ML IV SCH ×2 (09:00→12:00)
[2019-09-28 10:23] LABS: ESTIMATED GFR > 60
[2019-09-28 10:26] LABS: AGAP 21; BUN 6 mg/dL (8-22); CALCIUM 8.1 mg/dL (8.8-10.2); CHLORIDE 92 mmol/L (98-107); COSMO 267; CREATININE 0.7 mg/dL (0.5-0.9); GLUCOSE 383 mg/dL (70-104); MAGNESIUM 1.6 mg/dL (1.5-2.7); PHOSPHORUS 1.7 mg/dL (2.7-4.5); POTASSIUM 4.2 mmol/L (3.5-5.1); SODIUM 126 mmol/L (136-145); TCO2 13 mmol/L (25-35)
[2019-09-28] MEDS ORDERED: HUMALOG SUBQ SCH (11:00)
[2019-09-28] MEDS ORDERED: DILAUDID IV PRN (11:21)
[2019-09-28] MEDS ORDERED: ZOFRAN IV PRN (11:21)
[2019-09-28] MEDS ORDERED: D5W 1,000 ML IV SCH (12:15)
--- NOTE | 2019-09-28 13:38 | PROGRESS NOTE ---
DATE: 09/28/2019 SUBJECTIVE: Patient had an eventful night. Had several episodes of nausea, vomiting, abdominal pain. States that she feels as though she is worse. PHYSICAL EXAMINATION: Temperature 97, pulse 118 to 130s, respiratory 20 to 24, BP 111/79. General: Patient is somewhat more ill-appearing today than she was yesterday. HEENT: Normocephalic. Neck: Supple. Cardiovascular: Tachycardia. No murmurs. Chest: Tachypneic but no wheezing, no crackles. Good air movement. Abdomen: Soft, nondistended. Diffusely tender, mainly in the epigastric region. Extremities: Moves all extremities. No edema. Neurologic: No changes. ASSESSMENT: 1. Hyponatremia. Sodium is actually slightly better from 115 up to 122. 2. Acute diabetic ketoacidosis. The patient, yesterday on exam, had a negative acetone. Unfortunately, she has continued to worsen and certainly appears as though she is in diabetic ketoacidosis at this point. Blood sugar is 440 and bicarb is 9. 3. Diabetes type 1 on insulin with an elevated A1c around 9.3. 4. Severe hypertriglyceridemia. Triglycerides are greater than 4425 and is likely the cause of her acute as well as chronic pancreatitis. 5. Acute on chronic pancreatitis. 6. First trimester . PLAN: We are going to continue patient in the hospital but transfer her to the ICU, place her on insulin drip, as well as DKA protocols, and we will follow. Thirty-five minutes were spent in total care. cc: Ramírez Huerta MD
[2019-09-28 15:29] LABS: AGAP 19; BUN 8 mg/dL (8-22); CALCIUM 8.3 mg/dL (8.8-10.2); CHLORIDE 92 mmol/L (98-107); COSMO 262; CREATININE 0.8 mg/dL (0.5-0.9); ESTIMATED GFR > 60; GLUCOSE 381 mg/dL (70-104); MAGNESIUM 1.8 mg/dL (1.5-2.7); POTASSIUM 5.3 mmol/L (3.5-5.1); SODIUM 123 mmol/L (136-145); TCO2 12 mmol/L (25-35)
[2019-09-28 15:34] LABS: PHOSPHORUS 0.8 mg/dL (2.7-4.5)
--- NOTE | 2019-09-28 15:49 | EKG Report ---
Test Performed on : 09/28/2019 11:59:42 AM Test Reason : DKA Blood Pressure : / mmHG Vent. Rate : 130 BPM Atrial Rate : 130 BPM P-R Int : 092 ms QRS Dur : 066 ms QT Int : 352 ms P-R-T Axes : 053 038 080 degrees QTc Int : 518 ms Sinus tachycardia. with short [place] Otherwise normal ECG When compared with ECG of 15-JUN-2019 15:33, QRS axis shifted left Nonspecific T wave abnormality no longer evident in Lateral leads Confirmed by Zachary GRACIA, Ramírez Ludwig ([id number]) on 09/29/2019 9:25:35 AM
[2019-09-28] MEDS: NS 1,000 ML IV SCH ×2 (15:57→18:08)
[2019-09-28] MEDS: HUMULIN R 100 UNIT in NS 100 ML IV SCH (16:11)
[2019-09-28] MEDS ORDERED: SODIUM PHOSPHATE 30 MMOL in NS 250 ML IV ONE (17:00)
[2019-09-28 17:56] LABS: AGAP 20; BUN 8 mg/dL (8-22); CALCIUM 8.4 mg/dL (8.8-10.2); CHLORIDE 93 mmol/L (98-107); COSMO 266; CREATININE 0.8 mg/dL (0.5-0.9); ESTIMATED GFR > 60; GLUCOSE 362 mg/dL (70-104); POTASSIUM 3.8 mmol/L (3.5-5.1); SODIUM 126 mmol/L (136-145); TCO2 13 mmol/L (25-35)
[2019-09-28 17:57] LABS: MAGNESIUM 1.7 mg/dL (1.5-2.7)
[2019-09-28 18:19] LABS: PHOSPHORUS 0.7 mg/dL (2.7-4.5)
[2019-09-28] MEDS ORDERED: M V I IV SCH (21:30)
[2019-09-28] MEDS ORDERED: NS IV SCH (21:30)
[2019-09-28] MEDS ORDERED: FOLIC ACID IV SCH (21:30)
[2019-09-28] MEDS: D5W 1,000 ML IV PRN (21:46)
--- NOTE | 2019-09-28 21:57 | CONSULTATION ---
DATE OF CONSULTATION: 09/28/2019 HISTORY OF PRESENT ILLNESS: Rocío is a 29 yo Female, 3, para 2-0-0-1, 1st day of last menstrual [id number], who presents to the PVC unit from the [facility] secondary to Chronic Pancreatitis with an acute recurrent flare-up. She has a history of polysubstance abuse and was adamant about not discussing her substance abuse history with me because she stated that I will contact DPS. I assured her that I was not consulted to contact DPS regarding her. I was there to help her. Her symptomatology has been the following: Nausea, emesis, abdominal pain (8/10), diarrhea and fatigue that began yesterday morning at approximately 5 a.m. Her last admission for the same complaint was in June 2019 and she was managed by Hospitalist. Her triglyceride level was 2500 on that admission. OBSTETRICAL HISTORY: Significant for 2 sections. Her children's ages are 9 and 7 years. The 7-year-old has cerebral palsy. PAST MEDICAL HISTORY: Significant for type 1 diabetes of which she was diagnosed at age 11, hypertriglyceridemia, chronic pancreatitis, hypercholesterolemia, diabetic gastroparesis, hernia, DVT (?). PAST SURGICAL HISTORY: x2. SOCIAL HISTORY: Alcohol abuse, polysubstance abuse. Patient admits to quitting tobacco use. ALLERGIES: NKDA. FAMILY HISTORY: Noncontributory. MEDICATIONS: Lipitor, Reglan, insulin 70/30 (12 units 3 times a day). PHYSICAL EXAMINATION: Vital Signs (20:00 hrs): Temperature 99.3 degrees, heart rate 117, respiratory rate 12, blood pressure 123/69, pulse ox 99 on room air. GEN: Rocío is anxious and states that she is experiencing abdominal pain that is 8/10 in severity despite having received Dilaudid. She frequently moves about in bed, sips water and spits in a walker. Heart: Tachycardic w a HR of 114 bpm. Lungs: Clear to auscultation bilaterally. Abdomen: Soft, pain in the upper left quadrant (I was unable to perform a thorough examination secondary to the patient holding her abdomen and stating that her pain is 8/10 in severity. She describes it as crampy-like pain.) Extremities: No edema, multiple hyperpigmented healed lesions on both lower extremities. Some are circular in shape and others are irregular in shape. When questioned about shoe he acquired the lesions, she did not respond. Genitourinary: Pelvic exam deferred to obstetrical appointment Musculoskeletal: Unable to perform due to patient movement. Neurological: Unable to perform secondary to patient movement and she had to get out of bed to use the restroom. LABORATORY: CBC: WBC result 17.10, hemoglobin result 16.0, hematocrit 43.4, platelet count 171,000. Amylase 48, lipase 98. Quantitative beta HCG 403.4. Urinary drug screen negative. Urinalysis: Glucose >1000, 40 ketones, WBC 20-40, leukocytes small. Sodium 126, chloride 93, potassium 3.8, CO2 of 13, BUN 8, creatinine 0.8, blood sugar 362 (her blood sugar level at 18:56 hours was 250), calcium 8.4, phosphorus 0.7, magnesium 1.7, triglycerides 4,425. EKG, nonspecific T-wave abnormality no longer evident. Sinus tachycardia with short P-R, otherwise normal EKG. ASSESSMENT: 1. Intrauterine at 5 and 5/7 weeks gestation by last menstrual period. 2. Acute recurrent flare-up of chronic pancreatitis, possibly due to hypertriglyceridemia. 3. Severe hypertriglyceridemia. 4. Acute diabetic ketoacidosis. 5. Uncontrolled type 1 diabetes (class C pregestational diabetes mellitus). 6. Hyponatremia. 7. Nausea and emesis. 8. Left upper abdominal pain. 9. History of polysubstance abuse. 10. Gastroparesis, diabetes. PLAN: 1. Continue current management with the following goals: Normalize glucose, triglyceride levels, electrolytes & gastroparesis. Resolve abdominal pain 2. Labs: OB profile, GC, chlamydia by urinalysis, HIV, 24-hour urine for total protein and creatinine clearance, free T4, daily fasting blood sugar. 3. Obstetrical ultrasound (1st trimester). 4. Upper abdominal ultrasound to assess pancreas, gallbladder and liver. 5. Dietitian consult regarding the patient obtaining 2500 kilocalories while NPO and when able to tolerate a regular diet. 6. Daily multivitamin with 1 mg of folate daily. 7. Ophthalmology evaluation as outpatient. 8. Cardiology evaluation as outpatient. 9. MFM evaluation as outpatient. Thank you for allowing me to participate in the care of your patient. The OB team will continue to follow her at this time. [facility]
[2019-09-28 23:23] LABS: RPR NON-REACTIVE (NONREACTIVE); RUBELLA SCREEN NON IMMUNE (IMMUNE)
[2019-09-29] MEDS: NS IV SCH ×2 (00:12→22:02)
[2019-09-29] MEDS: M V I IV SCH ×2 (00:12→22:02)
[2019-09-29] MEDS: FOLIC ACID IV SCH ×2 (00:12→22:02)
[2019-09-29 01:34] LABS: AGAP 13; BUN 7 mg/dL (8-22); CALCIUM 7.9 mg/dL (8.8-10.2); CHLORIDE 101 mmol/L (98-107); COSMO 263; CREATININE 0.6 mg/dL (0.5-0.9); ESTIMATED GFR > 60; GLUCOSE 148 mg/dL (70-104); MAGNESIUM 1.8 mg/dL (1.5-2.7); PHOSPHORUS 1.3 mg/dL (2.7-4.5); SODIUM 131 mmol/L (136-145); TCO2 17 mmol/L (25-35)
[2019-09-29] MEDS: PHENERGAN IV PRN ×5 (02:38→17:40)
[2019-09-29] MEDS: DILAUDID IV PRN ×6 (02:38→20:57)
[2019-09-29] MEDS: SODIUM CHLORIDE 0.9% INJ PRN ×5 (02:39→17:40)
[2019-09-29] MEDS: HUMULIN R 100 UNIT in NS 100 ML IV SCH (02:39)
[2019-09-29] MEDS: POTASSIUM CHLORIDE 20 MEQ/SWI 20 MEQ/100 ML IVPB IV PRN ×2 (02:44→10:34)
[2019-09-29] MEDS ORDERED: HUMULIN R 100 UNIT in NS 100 ML IV SCH (04:00)
[2019-09-29] MEDS: NS 1,000 ML IV SCH ×3 (05:24→15:20)
[2019-09-29] MEDS: D5W 1,000 ML IV PRN ×2 (06:00→13:47)
--- NOTE | 2019-09-29 07:38 | Diag Imaging Result Doc PS360 ---
EXAM: US OBS COMPLETE < 14 WKS INDICATION: 1st trimester gestation TECHNIQUE: COMPARISON: None. FINDINGS: No intrauterine gestational sac is appreciated. The uterus is grossly normal in echotexture measuring 9.3 x 6.6 x 5.3 cm. The endometrium measures up to 1.7 cm in thickness. The right ovary is not visualized. The left ovary is grossly normal in echotexture measuring 2.5 cm in the greatest dimension. It exhibits Doppler flow. There is trace free fluid in the left adnexal region, nonspecific but usually physiologic. No solid adnexal masses are appreciated. IMPRESSION: No intrauterine gestational sac appreciated. This may be because the is very early. However, continued surveillance with serial serum hCG and ultrasound is recommended to assure normal development and completely exclude ectopic . Electronically signed by Timoteo Mann 09/29/2019 7:35 AM
[2019-09-29 09:22] LABS: HEMATOCRIT 35.2 % (37.0-47.0); HEMOGLOBIN 11.7 g/dL (12.0-16.0); MCH 29.2 PG (27-31); MCHC 33.2 g/dL (33-37); MCV 87.8 FL (81-99); MPV 12.9 FL (7.4-10.4); RBC 4.01 XMIL (4.2-5.4); RDW 15.2 % (11.5-14.5); WBC 13.12 X1000 (4.8-10.8)
[2019-09-29 09:43] LABS: AGAP 13; ALBUMIN 2.3 g/dL (3.5-5.0); BUN 6 mg/dL (8-22); CALCIUM 7.9 mg/dL (8.8-10.2); CHLORIDE 98 mmol/L (98-107); COSMO 263; CREATININE 0.6 mg/dL (0.5-0.9); ESTIMATED GFR > 60; GLUCOSE 249 mg/dL (70-104); MAGNESIUM 1.7 mg/dL (1.5-2.7); POTASSIUM 3.5 mmol/L (3.5-5.1); SODIUM 128 mmol/L (136-145); TCO2 17 mmol/L (25-35)
[2019-09-29 10:00] LABS: AGAP 14; BUN 6 mg/dL (8-22); CALCIUM 7.8 mg/dL (8.8-10.2); CHLORIDE 99 mmol/L (98-107); COSMO 265; CREATININE 0.5 mg/dL (0.5-0.9); ESTIMATED GFR > 60; GLUCOSE 245 mg/dL (70-104); MAGNESIUM 1.7 mg/dL (1.5-2.7); POTASSIUM 3.5 mmol/L (3.5-5.1); SODIUM 129 mmol/L (136-145); TCO2 16 mmol/L (25-35)
[2019-09-29] MEDS ORDERED: SODIUM CHLORIDE 0.9% INJ ONE (14:18)
[2019-09-29] MEDS: ROCEPHIN 1 GM in NS 50 ML IV SCH (14:25)
--- NOTE | 2019-09-29 14:43 | PROGRESS NOTE ---
DATE: 09/29/2019 SUBJECTIVE: The patient is currently on an insulin drip as well as IV fluids. She complains of generalized aches and pains but mainly abdominal pain. OBJECTIVE: Vital Signs: Temperature 99 degrees, blood pressure 116/73, heart rate 103, respirations 18, O2 saturation is 98% on room air. Intake 1.9 L, output 900. General: This is a young female lying in bed, in no acute distress. Heart: S1, S2 normal. Tachycardic. Lungs: Clear to auscultation bilaterally. No wheezing. No rales. No rhonchi. Abdomen: Positive bowel sounds. Soft. Diffuse tenderness. Extremities: No edema, no cyanosis. Neurologic: The patient is alert and oriented x3. Labs: White blood cell count 13, hemoglobin 11, hematocrit 35, platelets 146,000. Sodium 128, potassium 3.5, chloride 98, CO2 of 17, BUN 6, creatinine 0.6, glucose 249, phosphorus 1, magnesium 1.7, albumin 2.3. White blood cell count 13, hemoglobin 11, hematocrit 35, platelets 146,000. Triglycerides 3032, cholesterol 868. ASSESSMENT AND PLAN: 1. Mild diabetic ketoacidosis. The patient is currently on an insulin drip and intravenous fluids. The gap has closed. We will continue on the insulin drip to treat the hypertriglyceridemia. 2. Severe hypertriglyceridemia. The patient is currently on an insulin drip. We will continue with this until the triglycerides are less than 500. We will continue to monitor the blood sugars closely while on the insulin drip as well as a triglyceride levels. 3. Urinary tract infection. The urine culture is growing gram-negative rods. The patient has been started on Rocephin. 4. Hypophosphatemia. We will replace the patient's phosphorus. 5. Intrauterine . Management as per obstetrics. 6. Leukocytosis. Slowly improving. Continue with antibiotic therapy. 7. Poorly controlled insulin-dependent diabetes mellitus. The patient is currently on an insulin drip. 8. Deep vein thrombosis prophylaxis. We will start the patient on heparin. cc: Sameera Jimenes MD [facility]
[2019-09-29 16:08] LABS: AGAP 13; BUN 5 mg/dL (8-22); CALCIUM 8.1 mg/dL (8.8-10.2); CHLORIDE 93 mmol/L (98-107); COSMO 256; CREATININE 0.6 mg/dL (0.5-0.9); ESTIMATED GFR > 60; GLUCOSE 233 mg/dL (70-104); MAGNESIUM 2.1 mg/dL (1.5-2.7); PHOSPHORUS 1.3 mg/dL (2.7-4.5); SODIUM 125 mmol/L (136-145); TCO2 19 mmol/L (25-35)
[2019-09-29] MEDS ORDERED: SODIUM PHOSPHATE 40 MMOL in NS 250 ML IV ONE (16:31)
[2019-09-29 19:15] LABS: HIV ANTIBODY SCREEN SEE COMMENTS
[2019-09-29] MEDS: HEPARIN SUBQ SCH (20:39)
[2019-09-30] MEDS: PHENERGAN IV PRN ×5 (00:05→23:16)
[2019-09-30] MEDS: DILAUDID IV PRN ×8 (00:05→22:29)
[2019-09-30 00:43] LABS: AGAP 13; BUN 3 mg/dL (8-22); CALCIUM 8.2 mg/dL (8.8-10.2); CHLORIDE 99 mmol/L (98-107); COSMO 265; CREATININE 0.5 mg/dL (0.5-0.9); ESTIMATED GFR > 60; GLUCOSE 166 mg/dL (70-104); MAGNESIUM 1.8 mg/dL (1.5-2.7); PHOSPHORUS 1.2 mg/dL (2.7-4.5); POTASSIUM 2.9 mmol/L (3.5-5.1); SODIUM 132 mmol/L (136-145); TCO2 20 mmol/L (25-35)
[2019-09-30] MEDS: D5W 1,000 ML IV PRN (04:33)
[2019-09-30] MEDS: NS 1,000 ML IV SCH ×2 (05:50→05:56)
[2019-09-30] MEDS: POTASSIUM CHLORIDE 20 MEQ/SWI 20 MEQ/100 ML IVPB IV PRN (05:55)
[2019-09-30 09:13] LABS: HEPATITIS B SURFACE ANTIGEN SEE COMMENTS
[2019-09-30] MEDS: PEPCID IV SCH (09:35)
[2019-09-30] MEDS: HEPARIN SUBQ SCH ×2 (09:35→09:38)
[2019-09-30] MEDS ORDERED: D50W SYRINGE IV PRN (09:56)
[2019-09-30 10:02] LABS: ESTIMATED GFR > 60
[2019-09-30 10:10] LABS: AGAP 18; BUN 3 mg/dL (8-22); CALCIUM 7.9 mg/dL (8.8-10.2); CHLORIDE 96 mmol/L (98-107); COSMO 263; CREATININE 0.5 mg/dL (0.5-0.9); GLUCOSE 242 mg/dL (70-104); PHOSPHORUS 1.8 mg/dL (2.7-4.5); POTASSIUM 3.2 mmol/L (3.5-5.1); SODIUM 129 mmol/L (136-145); TCO2 15 mmol/L (25-35)
[2019-09-30] MEDS ORDERED: POTASSIUM PHOSPHATE 15 MMOL in NS 250 ML IV ONE (10:17)
[2019-09-30 10:33] LABS: MAGNESIUM 1.7 mg/dL (1.5-2.7)
--- NOTE | 2019-09-30 10:43 | PROGRESS NOTE ---
DATE: 09/30/2019 SUBJECTIVE: This patient's DKA seems to be better. I will stop the DKA protocol but I will continue with the insulin drip due to her hypertriglyceridemia and pancreatitis. Her triglyceride level is going down. She was admitted initially with more than 4425 and now is down to 1577. I discussed the case with the nurse and also the pharmacist and I will put this insulin drip at a rate of 0.1 unit/kg/hour and I will continue with IV fluids, D5 half NS and only half NS, depending on her blood sugar. OBJECTIVE: Vital Signs: Temperature 98.4 degrees, pulse 100, respiratory rate 16, blood pressure 112/58, oxygen saturation 96 on room air. HEENT: Head normocephalic, no trauma. PERRLA. Neck: Supple. No JVD. No masses. Central trachea. Chest: Clear to auscultation. No wheezing. No rales. Abdomen: Soft. Generalized tenderness to palpation, especially at the level of the periumbilical area and left side of the abdomen. Positive bowel sounds. No signs of peritoneal irritation. Extremities: No edema, no clubbing, no cyanosis. Neurological: The patient is awake, alert, she is oriented. No focal deficits. LABORATORY DATA: Sodium 132, potassium 2.9, chloride 99, bicarbonate 20, BUN 3, creatinine 0.5, glucose 166, calcium 8.2, phosphorus 1.2. ASSESSMENT AND PLAN: 1. Diabetic ketoacidosis, resolved. 2. Pancreatitis secondary to severe hypertriglyceridemia. I will continue with the insulin drip, but I will adjust the dose 0.1 unit/kg/hour, I will monitor the glucose every hour and I will continue with IV fluids. I will put this patient also on a liquid diet. 3. Urinary tract infection due to Escherichia coli, sensitive to ceftriaxone. I will continue with the same management. 4. Electrolyte imbalance including hypokalemia and hypophosphatemia, I will replace both. 5. We do have a positive test on this patient, GI Department has been consulted. We will continue following their recommendations. 6. Leukocytosis, slowly improving. I will go ahead and ask for a new CBC in the morning. 7. Poorly controlled insulin-dependent diabetes, currently on insulin drip. 8. Deep vein thrombosis prophylaxis. I will go ahead and continue with SCDs at this moment. cc: Bret Brown MD
[2019-09-30] MEDS ORDERED: K-PHOS PO ONE (10:46)
[2019-09-30] MEDS: D5 1/2 NS 1,000 ML IV SCH ×2 (10:53→22:29)
[2019-09-30] MEDS: HUMULIN R 100 UNIT in NS 100 ML IV SCH (11:12)
[2019-09-30 13:36] LABS: UR CREATININE 71.2 mg/dL (11-20); UR CREATININE TOTAL 1673.2 mg/24 (600-1600); UR PROTEIN 64.5 mg/dL
[2019-09-30 14:58] LABS: CREATININE 0.5 mg/dL (0.7-1.2)
[2019-09-30] MEDS: ROCEPHIN 1 GM in NS 50 ML IV SCH (16:19)
--- NOTE | 2019-09-30 18:24 | PROVIDER PROGRESS NOTE ---
- Subjective Pt seen and evaluated. Pt informed of appropriate increase level. Pt reports mild improvement in abdominal pain and nausea/vomiting resolved over the past 2 days. Denies vaginal bleeding/spotting or lower abdominal cramping. Physical Exam Objective Vital Signs - 8 hr 09/30/19 10:59 09/30/19 15:07 Temperature 98.1 F 98.0 F Pulse Rate 100 H 97 H Respiratory Rate 16 14 Blood Pressure 111/61 112/62 O2 Sat by Pulse Oximetry 98 99 - Constitutional General Appearance: appears well, alert, no apparent distress - RESPIRATORY Respiratory: lungs clear, normal breath sounds - CARDIOVASCULAR Cardiovascular: regular rate, rhythm - GASTROINTESTINAL (ABDOMEN) Abdominal Exam: soft, tenderness (mildly tender to palpation) - MUSCULOSKELETAL Extremity: non-tender Active Medications Generic Name Dose Route Start Last Admin Trade Name Freq PRN Reason Stop Dose Admin Dextrose 50 ml 09/30/19 09:56 [id number] Syringe IV DIRECTED PRN PRN hypoglycemia Famotidine 20 mg 09/30/19 09:00 09/30/19 09:35 Pepcid IV 20 mg QAM GERSON Administration Hydromorphone HCl 1 mg 09/28/19 16:10 09/30/19 16:19 Dilaudid IV 1 mg Q3H PRN PRN Administration Pain Multivitamins/Minerals 10 ml/ 1,010.2 mls @ 100 mls/hr 09/28/19 22:00 09/29/19 22:02 Folic Acid 1 mg/ Sodium IV 100 mls/hr Chloride Q24H GERSON Administration Ceftriaxone Sodium 1 gm/ 50 mls @ 100 mls/hr 09/29/19 14:15 09/30/19 16:19 Sodium Chloride IV 100 mls/hr Q24H GERSON Administration Dextrose/Sodium Chloride 1,000 mls @ 75 mls/hr 09/30/19 10:00 09/30/19 10:53 D5 1/2 Ns IV 75 mls/hr .[id number] GERSON Administration Insulin Human Regular 100 unit 100 mls @ 8 mls/hr 09/30/19 10:30 09/30/19 11:12 / Sodium Chloride IV 8 mls/hr .[id number] GERSON Administration Promethazine HCl 25 mg 09/28/19 11:21 09/30/19 13:26 Phenergan IV 25 mg Q4H PRN PRN Administration Nausea And Vomiting Bedside Urine ED: Urine Bedside Start: 09/27/19 10:59 Freq: Status: Complete Protocol: Activity Type Activity Date Activity User E-Sign Co-Sign Detail Recorded Client Recorded Date Recorded By Document 09/27/19 10:59 [id number] 09/27/19 10:59 [id number] Edit Status 09/27/19 20:01 [id number] Active=>Complete [id number] 09/27/19 20:01 [id number] 09/27/19 10:59 Point of Care [Bedside Point of Care] -Lot # [id number] - Results Weak Positive -Control Line Visible? Yes -Additional Comment sb 09/27/19 10:51 Urine Culture - Final Urine,Clean Catch Escherichia Coli Laboratory Results - last 24 hr 09/28/19 09/28/19 09/28/19 11:20 11:20 22:15 Sodium Cancelled Potassium Cancelled Chloride Cancelled Carbon Dioxide Cancelled Anion Gap Cancelled BUN Cancelled Creatinine Cancelled Estimated GFR/1.73 m2 Cancelled BUN/Creatinine Ratio Cancelled Glucose Cancelled POC Glucose Calculated Osmolality Cancelled Calcium Cancelled Phosphorus Cancelled Magnesium Cancelled Triglycerides Lipase Plasma Lactate Ser , Semi-Qnt Urine Protein Timed Urine Volume Urine Creatinine Ur Creatinine mg/24hr Creatinine Clearance Ur Total Protein 24 Hr Hep Bs Antigen SEE COMMENTS HIV 1&2 Antibody Screen SEE COMMENTS 09/29/19 09/29/19 09/29/19 00:11 00:11 19:09 Sodium Potassium Chloride Carbon Dioxide Anion Gap BUN Creatinine Estimated GFR/1.73 m2 BUN/Creatinine Ratio Glucose POC Glucose 212 H Calculated Osmolality Calcium Phosphorus Magnesium Triglycerides 2030 H Lipase Plasma Lactate 1.0 Ser , Semi-Qnt Urine Protein Timed Urine Volume Urine Creatinine Ur Creatinine mg/24hr Creatinine Clearance Ur Total Protein 24 Hr Hep Bs Antigen HIV 1&2 Antibody Screen 09/29/19 09/29/19 09/29/19 20:05 21:31 22:10 Sodium Potassium Chloride Carbon Dioxide Anion Gap BUN Creatinine Estimated GFR/1.73 m2 BUN/Creatinine Ratio Glucose POC Glucose 176 H 169 H 174 H Calculated Osmolality Calcium Phosphorus Magnesium Triglycerides Lipase Plasma Lactate Ser , Semi-Qnt Urine Protein Timed Urine Volume Urine Creatinine Ur Creatinine mg/24hr Creatinine Clearance Ur Total Protein 24 Hr Hep Bs Antigen HIV 1&2 Antibody Screen 09/29/19 09/30/19 09/30/19 23:16 00:11 00:11 Sodium 132 L Potassium 2.9 L Chloride 99 Carbon Dioxide 20 L Anion Gap 13 BUN 3 L Creatinine 0.5 Estimated GFR/1.73 m2 > 60 BUN/Creatinine Ratio 6 Glucose 166 H POC Glucose 165 H 153 H Calculated Osmolality 265 Calcium 8.2 L Phosphorus 1.2 L Magnesium 1.8 Triglycerides Lipase Plasma Lactate Ser , Semi-Qnt Urine Protein Timed Urine Volume Urine Creatinine Ur Creatinine mg/24hr Creatinine Clearance Ur Total Protein 24 Hr Hep Bs Antigen HIV 1&2 Antibody Screen 09/30/19 09/30/19 09/30/19 01:13 01:59 03:22 Sodium Potassium Chloride Carbon Dioxide Anion Gap BUN Creatinine Estimated GFR/1.73 m2 BUN/Creatinine Ratio Glucose POC Glucose 151 H 145 H 141 H Calculated Osmolality Calcium Phosphorus Magnesium Triglycerides Lipase Plasma Lactate Ser , Semi-Qnt Urine Protein Timed Urine Volume Urine Creatinine Ur Creatinine mg/24hr Creatinine Clearance Ur Total Protein 24 Hr Hep Bs Antigen HIV 1&2 Antibody Screen 09/30/19 09/30/19 09/30/19 04:28 05:05 05:40 Sodium Potassium Chloride Carbon Dioxide Anion Gap BUN Creatinine Estimated GFR/1.73 m2 BUN/Creatinine Ratio Glucose POC Glucose 143 H 168 H Calculated Osmolality Calcium Phosphorus Magnesium Triglycerides Lipase Plasma Lactate Ser , Semi-Qnt 793.0 Urine Protein Timed Urine Volume Urine Creatinine Ur Creatinine mg/24hr Creatinine Clearance Ur Total Protein 24 Hr Hep Bs Antigen HIV 1&2 Antibody Screen 09/30/19 09/30/19 09/30/19 05:40 05:40 06:01 Sodium Potassium Chloride Carbon Dioxide Anion Gap BUN Creatinine Estimated GFR/1.73 m2 BUN/Creatinine Ratio Glucose POC Glucose 190 H Calculated Osmolality Calcium Phosphorus Magnesium Triglycerides 1577 H Lipase 43 Plasma Lactate Ser , Semi-Qnt Urine Protein Timed Urine Volume Urine Creatinine Ur Creatinine mg/24hr Creatinine Clearance Ur Total Protein 24 Hr Hep Bs Antigen HIV 1&2 Antibody Screen 09/30/19 09/30/19 09/30/19 07:11 08:11 09:06 Sodium Potassium Chloride Carbon Dioxide Anion Gap BUN Creatinine Estimated GFR/1.73 m2 BUN/Creatinine Ratio Glucose POC Glucose 181 H 220 H 214 H Calculated Osmolality Calcium Phosphorus Magnesium Triglycerides Lipase Plasma Lactate Ser , Semi-Qnt Urine Protein Timed Urine Volume Urine Creatinine Ur Creatinine mg/24hr Creatinine Clearance Ur Total Protein 24 Hr Hep Bs Antigen HIV 1&2 Antibody Screen 09/30/19 09/30/19 09/30/19 09:17 10:56 12:17 Sodium 129 L Potassium 3.2 L Chloride 96 L Carbon Dioxide 15 L Anion Gap 18 BUN 3 L Creatinine 0.5 Estimated GFR/1.73 m2 > 60 BUN/Creatinine Ratio 6 Glucose 242 H POC Glucose 243 H 245 H Calculated Osmolality 263 Calcium 7.9 L Phosphorus 1.8 L Magnesium 1.7 Triglycerides Lipase Plasma Lactate Ser , Semi-Qnt Urine Protein Timed Urine Volume Urine Creatinine Ur Creatinine mg/24hr Creatinine Clearance Ur Total Protein 24 Hr Hep Bs Antigen HIV 1&2 Antibody Screen 09/30/19 09/30/19 13:06 13:07 Sodium Potassium Chloride Carbon Dioxide Anion Gap BUN Creatinine 0.5 L Estimated GFR/1.73 m2 BUN/Creatinine Ratio Glucose POC Glucose 219 H Calculated Osmolality Calcium Phosphorus Magnesium Triglycerides Lipase Plasma Lactate Ser , Semi-Qnt Urine Protein 64.5 Timed Urine Volume 2350 Urine Creatinine 71.2 H Ur Creatinine mg/24hr 1673.2 H Creatinine Clearance 232 H Ur Total Protein 24 Hr 1516 H Hep Bs Antigen HIV 1&2 Antibody Screen Microbiology 09/27/19 10:51 Urine Culture - Final Urine,Clean Catch Escherichia Coli - Assessment & Plan (1) Early stage of Status: Acute - Progress Note Disposition: 29yo with early IUP complicated by DKA, pancreatitis and hypertriglyceremia -Continue medical mgt per primary team -Beta HCG rise noted from 403 to 793. We will repeat Beta HCG quant in 2 days. -Consider repeat US when quant values greater than 2,000-3,000 -start daily vitamins -Will continue to follow
[2019-09-30 19:24] LABS: AGAP 14; BUN 2 mg/dL (8-22); CALCIUM 8.4 mg/dL (8.8-10.2); CHLORIDE 102 mmol/L (98-107); COSMO 267; CREATININE 0.5 mg/dL (0.5-0.9); ESTIMATED GFR > 60; GLUCOSE 76 mg/dL (70-104); POTASSIUM 2.8 mmol/L (3.5-5.1); SODIUM 136 mmol/L (136-145); TCO2 20 mmol/L (25-35)
[2019-09-30 19:33] LABS: TRIGLYCERIDES 1260 mg/dL (35-135)
[2019-09-30] MEDS: M V I IV SCH (22:29)
[2019-09-30] MEDS: NS IV SCH (22:29)
[2019-09-30] MEDS: FOLIC ACID IV SCH (22:29)
[2019-10-01] MEDS: DILAUDID IV PRN ×8 (01:22→22:00)
[2019-10-01] MEDS ORDERED: KLOR-CON PO ONE (05:27)
[2019-10-01 05:48] LABS: BASO# 0.08 X1000 (0.0-0.2); EOS# 0.27 X1000 (0.0-0.7); EOS% 3.5 % (0.0-10.0); IMM GRAN# 0.04 X1000 (0.0-0.04); IMM GRAN% 0.5 % (0.0-0.5); LYMPH# 1.06 X1000 (1.2-3.4); LYMPH% 13.7 % (20.5-51.1); MCH 27.7 PG (27-31); MCHC 31.3 g/dL (33-37); MCV 88.6 FL (81-99); MONO# 0.66 X1000 (0.11-0.59); MONO% 8.5 % (1.7-9.3); MPV 12.1 FL (7.4-10.4); NEUT# 5.61 X1000 (1.4-6.5); NEUT% 72.8 % (42.2-75.2); PLT 112 X1000 (130-400); RBC 3.61 XMIL (4.2-5.4); RDW 15.1 % (11.5-14.5); WBC 7.72 X1000 (4.8-10.8)
[2019-10-01] MEDS: PHENERGAN IV PRN ×4 (06:09→20:53)
[2019-10-01 06:23] LABS: AGAP 16; BUN 2 mg/dL (8-22); CALCIUM 8.1 mg/dL (8.8-10.2); CHLORIDE 102 mmol/L (98-107); COSMO 273; CREATININE 0.4 mg/dL (0.5-0.9); ESTIMATED GFR > 60; GLUCOSE 225 mg/dL (70-104); PHOSPHORUS 2.7 mg/dL (2.7-4.5); POTASSIUM 2.9 mmol/L (3.5-5.1); SODIUM 135 mmol/L (136-145); TCO2 17 mmol/L (25-35); TRIGLYCERIDES 775 mg/dL (35-135)
[2019-10-01] MEDS ORDERED: DILAUDID IM ONE (07:26)
[2019-10-01] MEDS: PEPCID IV SCH (09:09)
[2019-10-01] MEDS: PRECARE PO SCH (09:09)
[2019-10-01] MEDS: D5 NS 1,000 ML IV SCH ×2 (10:17→19:11)
[2019-10-01] MEDS: HUMULIN R 100 UNIT in NS 100 ML IV SCH ×2 (10:18→16:19)
--- NOTE | 2019-10-01 11:25 | Diag Imaging Result Doc PS360 ---
EXAM: US ABDOMEN-COMPLETE 10/01/2019 HISTORY: Pancreatitis TECHNIQUE: Abdominal ultrasound COMMENT: The liver is hyperechoic. The pancreatic head is, the body is somewhat heterogeneous in echotexture without evidence of mass or fluid collection. There our calcified granulomata in the liver. There is antegrade flow in the portal vein. There is borderline biliary dilatation, the common bile duct measuring up to 7 mm in diameter. There are apparent small stones and other debris in the distal common duct. The gallbladder is surgically absent. The kidneys are without evidence of hydronephrosis or mass. The spleen is enlarged measuring over 15 cm. There is a 10 mm cyst in the lower pole of the left kidney. IMPRESSION: Choledocholithiasis. Hepatic steatosis. Splenomegaly. The possibility of mild pancreatitis cannot be excluded. Electronically signed by Chau Pretty 10/01/2019 11:23 AM
[2019-10-01 13:10] LABS: INR 1.12; PROTIME 14.5 Seconds (11.0-16.0)
[2019-10-01 13:23] LABS: ALB/GLOB RATIO 0.9; ALBUMIN 2.5 g/dL (3.5-5.0); DIRECT BILIRUBIN 0.1 mg/dL (0.00-0.20); TOTAL BILIRUBIN 0.28 mg/dL (0.20-1.00); TOTAL PROTEIN 5.2 g/dL (6.3-8.3)
--- NOTE | 2019-10-01 13:23 | PROGRESS NOTE ---
DATE: 10/01/2019 SUBJECTIVE: This patient is still on the insulin drip due to her severe hypertriglyceridemia and pancreatitis. Her triglyceride level upon admission was more than 4425, and actually this is not the first time that this patient's triglyceride level is that high. Previously on 06/15/2019, it was more than 4425. Today, the triglyceride level is around 775. I will replace her potassium. Her phosphorus level is normal today. Magnesium level is 1.6. I will continue with IV fluids. She has been placed on normal saline with D5 at 150 since she is still having abdominal pain, even though the lipase level decreased. Because of this, I did an abdominal ultrasound that showed the possibility of choledocholithiasis, hepatic steatosis, splenomegaly and possibly of mild pancreatitis. I have requested an evaluation by Gastroenterology Department, who has requested an MRCP without contrast. Because of the high triglyceride level, DKA, uncontrolled diabetes and the possibility of choledocholithiasis, there is a high risk of problems since she is in the first trimester. [facility] on board and I will follow their recommendations. OBJECTIVE: Vital Signs: Temperature 97.8 degrees, pulse 94, respiratory rate 18, blood pressure 112/59, oxygen saturation 98 on room air. HEENT: Head normocephalic, no trauma. PERRLA. Neck: Supple. No JVD. No masses. Central trachea. Chest: Clear to auscultation. No wheezing. No rales. Abdomen: Soft. Generalized tenderness to palpation, especially at the level of the periumbilical area and left side of the abdomen. Positive bowel sounds. No signs of peritoneal irritation. Extremities: No edema, no clubbing, no cyanosis. Neurological examination: Patient is awake, alert. She is oriented. No focal deficits. LABORATORY: WBC 7.7, hemoglobin 10.0, hematocrit 32, platelets 112. Sodium 135, potassium 2.9, chloride 102, bicarbonate 17. BUN 2, creatinine 0.4, glucose 225, calcium 8.1, phosphorus 2.7, magnesium to 1.6. ASSESSMENT AND PLAN: 1. Diabetic ketoacidosis, basically resolved, but we will continue with insulin drip and intravenous fluids to treat her hypertriglyceridemia. 2. Pancreatitis secondary to severe hypertriglyceridemia; this is not the first time that this patient has had elevated triglyceride level. As per the patient, she takes Lipitor at home 40 at bedtime, but I am not quite sure about that, it is not well controlled. She has an elevated triglyceride level since 06/15/2019. I have requested an ultrasound that showed choledocholithiasis, hepatic steatosis, splenomegaly, mild pancreatitis. I will continue with intravenous fluids. I am giving her normal saline with some D5 because she is on an insulin drip still to try to improve the triglyceride. Unfortunately, she needs to get magnetic resonance cholangiopancreatography done without contrast to rule out choledocholithiasis, and I have requested an evaluation by Gastroenterology Department. 3. Urinary tract infection due to Escherichia coli, sensitive to ceftriaxone. Continue with same management. 4. Electrolyte imbalance including hypokalemia, hypophosphatemia, hyponatremia. I will replace the electrolytes, this time the potassium. 5. Leukocytosis, improved. 6. Poorly controlled diabetes. At this moment she is on an insulin drip. We will need to continue with pattern of blood sugar. 7. Deep vein thrombosis prophylaxis with sequential compression devices. 8. Early intrauterine which has been complicated with diabetic ketoacidosis, pancreatitis and hypertriglyceridemia, possible choledocholithiasis. Magnetic resonance cholangiopancreatography has been requested without contrast to try to protect the , but still there is a high risk of having complications. [facility] on board, as well as Gastroenterology Department. cc: Bret Brown MD
[2019-10-01] MEDS ORDERED: MILK OF MAGNESIA PO ONE (15:09)
--- NOTE | 2019-10-01 15:56 | PROGRESS NOTE ---
DATE: 10/01/2019 Rocío was seen at 1 p.m. today, October 01, 2019. An attempt was made to see her earlier; however, she was in the radiology department. Rocío is a 29-year-old, female, 3, para 2-0-0-1, first day of last menstrual period August 19, 2019, with an intrauterine at 6.2 weeks by her last menstrual period. She presented on 09/27/2019, from the [facility] secondary to an acute flare-up of chronic pancreatitis. During this admission, she was noted to have a positive test with a quant level of 403.4. Her quant was repeated after 3 days and did not quite double, the value increased to 793.0. Therefore, her QtBHcg level will be repeated. An OB ultrasound was performed, which ruled out abnormalities such as an ectopic , ovarian cyst and fibroid uterus. The patient has numerous comorbidities. Her main complaint is upper left abdominal pain. An abdominal ultrasound was performed today that was significant for the identification of choledocholithiasis, hepatic steatosis, splenomegaly, and a possible mild pancreatitis. The patient's complaint today is continued left upper quadrant pain of which she states has a severity of 7 to 8/10. She receives Dilaudid for pain management. Her leukocytosis has resolved from IV antibiotic administration. PHYSICAL EXAMINATION: Vital Signs: Temperature 97.8, pulse 94, respiratory rate 18, blood pressure 112/59. Heart: Regular rhythm and rate without murmur. Lungs: Clear to auscultation bilaterally. Abdomen: Soft, mildly distended; guarded, and the patient would not allow me to assess her abdomen. OB LABORATORY RESULTS: RPR nonreactive, hepatitis surface antigen nonreactive, HIV nonreactive, rubella nonimmune, GC/chlamydia by urine pending. OTHER LABORATORY RESULTS: CBC: WBC 7.7, hemoglobin 10.0, hematocrit 33.0, platelet count 112,000. BMP: Sodium 135, potassium 2.9, chloride 102, carbon dioxide 17, BUN 2, creatine 0.4, glucose 225. AST 13, ALT 9, triglycerides 775, free T4 0.19. IMPRESSION: 1. Intrauterine at 6.2 weeks gestation by last menstrual period (quant value was less than doubled). The QtBHcg level will be repeated tomorrow. 2. Pancreatitis. 3. Choledocholithiasis. 4. Hepatic steatosis. 5. Splenomegaly. 6. Left upper abdominal pain (the etiology could be the above diagnosis # 2-5). 7. Hypertriglyceridemia (decreasing value). 8. Diabetic ketoacidosis. 9. Uncontrolled type 1 diabetes (class C pregestational diabetes). 10. History of substance abuse. 11. Gastroparesis in diabetes. 12. Leukocytosis (resolved). 13. Mild anemia. 14. Thrombocytopenia. 15. Hyponatremia. 16. Hypokalemia. 17. Hypothyroidism. PLAN: 1. Continue present management. 2. Continue the IV MVI/folate at this time. When she is tolerating a regular diet, she may begin to take a daily po Vitamin tablet (if tolerated) 3. Repeat quant on 10/02/2019. 4. Will repeat OB U/S when Quant rises (yolk sac should be identified @ ~2,500 mIU/ml) 5. GC, chlamydia values still pending (we will follow) 6. Specialists to manage the patient for choledocholithiasis, splenomegaly, hepatic steatosis and pancreatitis. MTDD
[2019-10-01] MEDS: ROCEPHIN 1 GM in NS 50 ML IV SCH (16:21)
[2019-10-01 18:57] LABS: ESTIMATED GFR > 60
[2019-10-01 19:07] LABS: AGAP 16; BUN 2 mg/dL (8-22); CALCIUM 7.9 mg/dL (8.8-10.2); CHLORIDE 101 mmol/L (98-107); COSMO 271; CREATININE 0.5 mg/dL (0.5-0.9); GLUCOSE 179 mg/dL (70-104); PHOSPHORUS 2.3 mg/dL (2.7-4.5); POTASSIUM 2.8 mmol/L (3.5-5.1); SODIUM 135 mmol/L (136-145); TCO2 18 mmol/L (25-35); TRIGLYCERIDES 645 mg/dL (35-135)
--- NOTE | 2019-10-01 19:20 | GASTROENTEROLOGY CONSULTATION ---
DATE: 10/01/2019 REASON FOR CONSULTATION: Abnormal ultrasound showing choledocholithiasis. HISTORY OF PRESENT ILLNESS: This is a 29-year-old female who has a history of chronic pancreatitis. She has history of diabetes, has had multiple episodes of diabetic ketoacidosis. She has also had significant elevation in triglycerides. She presented to the hospital with nausea, vomiting and abdominal pain. On admission her lipase was 98, amylase 48. Abdominal ultrasound showed choledocholithiasis, hepatic steatosis, splenomegaly, and the possibility of mild pancreatitis. GI consult was obtained. Dr. Guerrier had recommended an MRCP, which was ordered. The patient went down for the test, but ended up refusing the test due to anxiety due to the exam, plus she is worried because she has recently been told she was . She is probably 5 to 6 weeks in her 1st trimester. She has been seen by gynecology since admission. Patient does report abdominal pain that is worse in the epigastric area. She has reported nausea, but the last episode of vomiting was several days ago. She does have a history of alcohol abuse and poly substance abuse. Patient has reported stopping smoking since she has been told she was . She has reported some episodes of constipation versus diarrhea. She reports having frequent episodes of pancreatitis. PAST MEDICAL HISTORY: Type 1 diabetes diagnosed at age 11, history of chronic pancreatitis, hypertriglyceridemia, hypercholesterolemia, history of diabetic gastroparesis, history of abdominal hernia. PAST SURGICAL HISTORY: section x2. ALLERGIES: No known drug allergies. HOME MEDICATIONS: Lipitor 40 mg every night, insulin 70/30 25 units subcu twice a day, Reglan 5 mg 3 times a day before meals. SOCIAL HISTORY: She has a fiancee. She has 2 children, age 9 and 7. She does have a history of substance abuse and alcohol use. She has a history of tobacco use and states she just stopped when she found out she was . REVIEW OF SYSTEMS: Per history of present illness.Vital Signs: Temperature 99 degrees, pulse 96, respirations 16, blood pressure 114/66. General: Patient is awake and alert. She is somewhat anxious. HEENT: Normocephalic, atraumatic. Pupils equal, round, reactive to light, sclerae nonicteric. Respiratory: Lung sounds essentially clear. Cardiovascular: Regular rate and rhythm. Abdomen: With tenderness to palpation otherwise soft. She does have a hernia noted above the umbilical area. Positive bowel sounds. Extremities: No lower extremity edema noted. Skin: With tattoos noted. Neurologic: Cranial nerves 2-12 grossly intact. The patient is awake, alert, oriented to person, place, and time. DIAGNOSTIC RESULTS: Laboratory: WBC 7.72, hemoglobin 10.0, hematocrit 32.0. Coagulation: ProTime 14.5, INR 1.12. Chemistry: Sodium 135, potassium 2.9, chloride 102, CO2 17, BUN 2, creatinine 0.4, glucose 225, calcium 8.1, phosphorus 2.7, magnesium 1.6, total bilirubin 0.28, AST 13, ALT 9, alkaline phosphatase 63, amylase 32, lipase 48. Serum 793.0. Toxicology: Buprenorphine negative. All other toxicology reported as negative. Hepatitis B surface antigen was nonreactive. HIV negative/nonreactive. IMAGING: Abdominal ultrasound showed choledocholithiasis, hepatic steatosis, splenomegaly, possibility of mild pancreatitis. ASSESSMENT AND PLAN: 1. Diabetic ketoacidosis following with hospitalist on insulin drip. 2. Pancreatitis and severe hypertriglyceridemia. Her amylase and lipase are normal today. 3. Choledocholithiasis noted on ultrasound. Recommended MRCP for further evaluation, but patient has refused the test. 4. Electrolyte imbalance. Continue with replacement as needed. 5. Early intrauterine following with gynecology. We have discussed with the patient the risk of MRCP versus ERCP and felt like it was more appropriate to start with MRCP, but patient refuses the test. At present time, her amylase and lipase along with liver function tests are normal. I would recommend continuing symptomatic treatment and supportive care. We will hold off proceeding with MRCP unless patient reconsiders and would like to proceed with that for further diagnoses. We will allow full liquid diet. The patient has had some constipation. Will give a dose of milk of magnesia and start MiraLAX daily. Further plans to be made according to her progress. I have discussed this case with Dr. Guerrier. Thank you for this consultation. Dictated by ILYA Nolen for Deonte Guerrier MD cc: ILYA Tobar MD
[2019-10-01] MEDS: NS IV SCH (22:19)
[2019-10-01] MEDS: M V I IV SCH (22:19)
[2019-10-01] MEDS: FOLIC ACID IV SCH (22:19)
[2019-10-02] MEDS: DILAUDID IV PRN ×7 (01:04→21:09)
[2019-10-02] MEDS: PHENERGAN IV PRN ×4 (02:42→21:29)
[2019-10-02 07:28] LABS: ESTIMATED GFR > 60
[2019-10-02] MEDS: HUMULIN R 100 UNIT in NS 100 ML IV SCH (07:28)
[2019-10-02 07:29] LABS: AGAP 19; BUN 2 mg/dL (8-22); CALCIUM 8.2 mg/dL (8.8-10.2); CHLORIDE 102 mmol/L (98-107); COSMO 277; CREATININE 0.4 mg/dL (0.5-0.9); GLUCOSE 198 mg/dL (70-104); PHOSPHORUS 3.6 mg/dL (2.7-4.5); POTASSIUM 2.8 mmol/L (3.5-5.1); SODIUM 138 mmol/L (136-145); TCO2 17 mmol/L (25-35); TRIGLYCERIDES 519 mg/dL (35-135)
[2019-10-02] MEDS: D5 NS 1,000 ML IV SCH (07:39)
--- NOTE | 2019-10-02 07:48 | OB/GYN PROGRESS NOTE ---
- Subjective 29 yo at 6w3d by LMP with of unknown location with DKA, pancreatitis, hypertriglyceridemia, choledocholithiasis Patient seen and examined. She states she has had some vaginal spotting that started yesterday. She denies any heavy bleeding. She complains mostly of epigastric and left upper quadrant pain. She is tolerating a liquid diet. Repeat Beta-Hcg this AM was an appropriate rise, but still below the discriminatory zone. OB Physical Exam Vital Signs - 8 hr 10/02/19 00:00 10/02/19 04:00 Temperature 98.3 F 98.2 F Pulse Rate 100 H 95 H Respiratory Rate 16 16 Blood Pressure 108/58 111/58 O2 Sat by Pulse Oximetry 97 98 - CONSTITUTIONAL General Appearance: appears well, alert, no apparent distress - HEAD, EARS, NOSE, MOUTH & THROAT HENMT: normocephalic/atraumatic - RESPIRATORY Respiratory: normal breath sounds, no respiratory distress - CARDIOVASCULAR Cardiovascular: regular rate, rhythm - GASTROINTESTINAL (ABDOMEN) Abdominal Exam: normal bowel sounds, soft, other (epigastric TTP, LUQ TTP) - MUSCULOSKELETAL Extremity: normal range of motion, non-tender - SKIN Integumentary: normal color - NEUROLOGIC Neurologic: grossly normal - PSYCHIATRIC Psych/Mental Status: normal mood/affect Active Medications Generic Name Dose Route Start Last Admin Trade Name Freq PRN Reason Stop Dose Admin Dextrose 50 ml 09/30/19 09:56 [id number] Syringe IV DIRECTED PRN PRN hypoglycemia Famotidine 20 mg 09/30/19 09:00 10/01/19 09:09 Pepcid IV 20 mg QAM GERSON Administration Hydromorphone HCl 1 mg 09/28/19 16:10 10/02/19 04:46 Dilaudid IV 1 mg Q3H PRN PRN Administration Pain Multivitamins/Minerals 10 ml/ 1,010.2 mls @ 100 mls/hr 09/28/19 22:00 10/01/19 22:19 Folic Acid 1 mg/ Sodium IV 100 mls/hr Chloride Q24H GERSON Administration Ceftriaxone Sodium 1 gm/ 50 mls @ 100 mls/hr 09/29/19 14:15 10/01/19 16:21 Sodium Chloride IV 100 mls/hr Q24H GERSON Administration Insulin Human Regular 100 unit 100 mls @ 8 mls/hr 09/30/19 10:30 10/02/19 07:28 / Sodium Chloride IV 8 mls/hr .[id number] GERSON Administration Dextrose/Sodium Chloride 1,000 mls @ 150 mls/hr 10/01/19 10:00 10/02/19 07:39 D5 Ns IV 150 mls/hr .[id number] GERSON Administration Polyethylene Glycol 17 gm 10/02/19 09:00 Miralax PO DAILY GERSON Potassium Chloride 40 meq 10/02/19 09:00 Klor-Con PO 10/02/19 21:01 BID GERSON Multivit/Folic Acid/Iron 1 each 10/01/19 09:00 10/01/19 09:09 Precare PO 1 each DAILY GERSON Administration Promethazine HCl 25 mg 09/28/19 11:21 10/02/19 02:42 Phenergan IV 25 mg Q4H PRN PRN Administration Nausea And Vomiting Bedside Urine ED: Urine Bedside Start: 09/27/19 10:59 Freq: Status: Complete Protocol: Activity Type Activity Date Activity User E-Sign Co-Sign Detail Recorded Client Recorded Date Recorded By Document 09/27/19 10:59 [id number] 09/27/19 10:59 [id number] Edit Status 09/27/19 20:01 [id number] Active=>Complete [id number] 09/27/19 20:01 [id number] 09/27/19 10:59 Point of Care [Bedside Point of Care] -Lot # [id number] - Results Weak Positive -Control Line Visible? Yes -Additional Comment sb Laboratory Results - last 24 hr 09/28/19 09/28/19 10/01/19 02:46 11:20 08:03 PT INR Sodium Potassium Chloride Carbon Dioxide Anion Gap BUN Creatinine Estimated GFR/1.73 m2 BUN/Creatinine Ratio Glucose POC Glucose 226 H Calculated Osmolality Calcium Phosphorus Magnesium Total Bilirubin Direct Bilirubin AST ALT Alkaline Phosphatase Total Protein Albumin Globulin Albumin/Globulin Ratio Triglycerides Amylase Lipase Ser , Semi-Qnt Ur Buprenorphine Scrn SEE COMMENTS Ur Chlamydia/GC DNA SEE COMMENTS 10/01/19 10/01/19 10/01/19 09:31 11:34 12:30 PT 14.5 INR 1.12 Sodium Potassium Chloride Carbon Dioxide Anion Gap BUN Creatinine Estimated GFR/1.73 m2 BUN/Creatinine Ratio Glucose POC Glucose 236 H 200 H Calculated Osmolality Calcium Phosphorus Magnesium Total Bilirubin Direct Bilirubin AST ALT Alkaline Phosphatase Total Protein Albumin Globulin Albumin/Globulin Ratio Triglycerides Amylase Lipase Ser , Semi-Qnt Ur Buprenorphine Scrn Ur Chlamydia/GC DNA 10/01/19 10/01/19 10/01/19 12:30 12:30 12:30 PT INR Sodium Potassium Chloride Carbon Dioxide Anion Gap BUN Creatinine Estimated GFR/1.73 m2 BUN/Creatinine Ratio Glucose POC Glucose Calculated Osmolality Calcium Phosphorus Magnesium Total Bilirubin 0.28 Direct Bilirubin 0.10 AST 13 ALT 9 L Alkaline Phosphatase 63 Total Protein 5.2 L Albumin 2.5 L Globulin 2.7 Albumin/Globulin Ratio 0.9 Triglycerides Amylase 32 Lipase 48 Ser , Semi-Qnt Ur Buprenorphine Scrn Ur Chlamydia/GC DNA 10/01/19 10/01/19 10/01/19 13:00 14:07 15:17 PT INR Sodium Potassium Chloride Carbon Dioxide Anion Gap BUN Creatinine Estimated GFR/1.73 m2 BUN/Creatinine Ratio Glucose POC Glucose 128 H 160 H 202 H Calculated Osmolality Calcium Phosphorus Magnesium Total Bilirubin Direct Bilirubin AST ALT Alkaline Phosphatase Total Protein Albumin Globulin Albumin/Globulin Ratio Triglycerides Amylase Lipase Ser , Semi-Qnt Ur Buprenorphine Scrn Ur Chlamydia/GC DNA 10/01/19 10/01/19 10/01/19 16:05 17:28 18:05 PT INR Sodium 135 L Potassium 2.8 L Chloride 101 Carbon Dioxide 18 L Anion Gap 16 BUN 2 L Creatinine 0.5 Estimated GFR/1.73 m2 > 60 BUN/Creatinine Ratio 4 Glucose 179 H POC Glucose 187 H 206 H Calculated Osmolality 271 Calcium 7.9 L Phosphorus 2.3 L Magnesium Total Bilirubin Direct Bilirubin AST ALT Alkaline Phosphatase Total Protein Albumin Globulin Albumin/Globulin Ratio Triglycerides 645 H Amylase Lipase Ser , Semi-Qnt Ur Buprenorphine Scrn Ur Chlamydia/GC DNA 10/01/19 10/01/19 10/01/19 18:52 20:05 21:08 PT INR Sodium Potassium Chloride Carbon Dioxide Anion Gap BUN Creatinine Estimated GFR/1.73 m2 BUN/Creatinine Ratio Glucose POC Glucose 160 H 98 114 H Calculated Osmolality Calcium Phosphorus Magnesium Total Bilirubin Direct Bilirubin AST ALT Alkaline Phosphatase Total Protein Albumin Globulin Albumin/Globulin Ratio Triglycerides Amylase Lipase Ser , Semi-Qnt Ur Buprenorphine Scrn Ur Chlamydia/GC DNA 10/01/19 10/01/19 10/02/19 22:50 23:51 01:13 PT INR Sodium Potassium Chloride Carbon Dioxide Anion Gap BUN Creatinine Estimated GFR/1.73 m2 BUN/Creatinine Ratio Glucose POC Glucose 113 H 80 92 Calculated Osmolality Calcium Phosphorus Magnesium Total Bilirubin Direct Bilirubin AST ALT Alkaline Phosphatase Total Protein Albumin Globulin Albumin/Globulin Ratio Triglycerides Amylase Lipase Ser , Semi-Qnt Ur Buprenorphine Scrn Ur Chlamydia/GC DNA 10/02/19 10/02/19 10/02/19 02:10 02:27 02:53 PT INR Sodium Potassium Chloride Carbon Dioxide Anion Gap BUN Creatinine Estimated GFR/1.73 m2 BUN/Creatinine Ratio Glucose POC Glucose 55 L 75 92 Calculated Osmolality Calcium Phosphorus Magnesium Total Bilirubin Direct Bilirubin AST ALT Alkaline Phosphatase Total Protein Albumin Globulin Albumin/Globulin Ratio Triglycerides Amylase Lipase Ser , Semi-Qnt Ur Buprenorphine Scrn Ur Chlamydia/GC DNA 10/02/19 10/02/19 10/02/19 03:24 05:21 06:03 PT INR Sodium 138 Potassium 2.8 L Chloride 102 Carbon Dioxide 17 L Anion Gap 19 BUN 2 L Creatinine 0.4 L Estimated GFR/1.73 m2 > 60 BUN/Creatinine Ratio 5 Glucose 198 H POC Glucose 120 H 180 H Calculated Osmolality 277 Calcium 8.2 L Phosphorus 3.6 Magnesium Total Bilirubin Direct Bilirubin AST ALT Alkaline Phosphatase Total Protein Albumin Globulin Albumin/Globulin Ratio Triglycerides 519 H Amylase Lipase Ser , Semi-Qnt Ur Buprenorphine Scrn Ur Chlamydia/GC DNA 10/02/19 10/02/19 06:03 06:03 PT INR Sodium Potassium Chloride Carbon Dioxide Anion Gap BUN Creatinine Estimated GFR/1.73 m2 BUN/Creatinine Ratio Glucose POC Glucose Calculated Osmolality Calcium Phosphorus Magnesium 1.6 Total Bilirubin Direct Bilirubin AST ALT Alkaline Phosphatase Total Protein Albumin Globulin Albumin/Globulin Ratio Triglycerides Amylase Lipase Ser , Semi-Qnt 1331.0 Ur Buprenorphine Scrn Ur Chlamydia/GC DNA OB Assessment & Plan (1) Early stage of Status: Acute Plan: 29 yo at 6w3d by LMP with of unknown location with DKA, pancreatitis, hypertriglyceridemia, choledocholithiasis 1. Beta Quant trend: [id number], will repeat in 48 hours 2. Will plan to repeat TVUS when beta > discriminatory zone 3. Monitor for heavy vaginal bleeding, abdominal pain
[2019-10-02 07:51] LABS: ALB/GLOB RATIO 1.3; ALBUMIN 2.9 g/dL (3.5-5.0); DIRECT BILIRUBIN 0.1 mg/dL (0.00-0.20); TOTAL BILIRUBIN 0.32 mg/dL (0.20-1.00); TOTAL PROTEIN 5.1 g/dL (6.3-8.3)
[2019-10-02] MEDS: KLOR-CON PO SCH ×2 (08:47→21:07)
[2019-10-02] MEDS: PEPCID IV SCH (08:47)
[2019-10-02] MEDS: MIRALAX PO SCH (08:47)
[2019-10-02] MEDS: PRECARE PO SCH (08:47)
[2019-10-02 09:18] LABS: AMYLASE 37 U/L (20-200); LIPASE 40 U/L (13-60)
[2019-10-02] MEDS: FISH OIL CONCENTRATE PO SCH ×2 (09:44→21:07)
[2019-10-02] MEDS: LANTUS INSULIN SUBQ SCH (09:44)
[2019-10-02] MEDS: 1/2 NS 1,000 ML IV SCH (09:44)
--- NOTE | 2019-10-02 10:22 | PROGRESS NOTE ---
DATE: 10/02/2019 SUBJECTIVE: The patient is still complaining of some abdominal pain mostly at the level of the left flank and left lower quadrant. She is not complaining of right upper quadrant pain, she has been on an insulin drip, which I will stop today, and I will put her on long-acting insulin with glargine, sliding scale insulin and pattern of blood sugar, we will readjust her dose accordingly. Her triglyceride level today is 519, so I will stop the insulin drip. I will replace the potassium as well. This patient has an early intrauterine , which has been complicated with DKA, pancreatitis due to hypertriglyceridemia, there is a possibility of choledocholithiasis, but the LFTs are normal, MRCP has been recommended, but the patient refused it, I have also contacted the dietitian to put her on a diet. OBJECTIVE: Vital signs: Temperature 99.1 degrees, pulse 95, respiratory rate 18, blood pressure 114/63, oxygen saturation 97% on room air. HEENT: Head normocephalic, no trauma, PERRLA. Neck: Supple. No JVD. No masses. Central trachea. Chest: Clear to auscultation. No wheezing. No rales. Abdomen: Soft, generalized tenderness to palpation especially at the level of the left side of the abdomen, flank and left lower quadrant, she is not complaining of right upper quadrant pain, positive bowel sounds. Extremities: No edema, no clubbing, no cyanosis. Neurological Examination: The patient is awake, alert. She is oriented x3. No focal neurological deficits. LABORATORY: Sodium 138, potassium 2.8, chloride 102, bicarbonate 17, BUN 2, creatinine 0.4, glucose 198, calcium 8.2, albumin 2.9, triglyceride level 519. ASSESSMENT AND PLAN: 1. Diabetic ketoacidosis, basically resolved. She has been placed on insulin drip, which was continue because of the hypertriglyceridemia, it will be stopped today. I will put her on long-acting insulin at home. Apparently, she has been on insulin 70/30, but her hemoglobin A1c is elevated at 9.3, which means that has not been well-controlled, like I mentioned before I will put this patient on Lantus. I will start with 25 because she is not eating too much, sliding scale insulin and pattern of blood sugar. We will readjust this accordingly. 2. Pancreatitis secondary to severe hypertriglyceridemia, her triglyceride level was more than 4425 upon admission, today is 519, I will stop the insulin drip and I will put her on long- acting insulin. I have started this patient on Lovaza 2 g twice a day so she can get 4 g daily, also I have requested an evaluation by the dietitian to give her a low sat and trans fat diet. 3. Severe hypertriglyceridemia, as above. 4. Urinary tract infection due to Escherichia coli, sensitive to ceftriaxone. Continue with same management. 5. Electrolyte imbalance including hypokalemia. I will replace it. Her hypophosphatemia and hyponatremia is better. 6. Leukocytosis, improved. 7. Poorly controlled diabetes, as per number 1. 8. Deep vein thrombosis prophylaxis with sequential compression devices. 9. Early intrauterine , which has been complicated with diabetic ketoacidosis, pancreatitis and hypertriglyceridemia, possible choledocholithiasis, MRCP has been requested, but the patient refused to do it. She is not complaining of right upper quadrant pain and her LFTs are normal, so I will just monitor for now. Gastroenterology Department on board, [facility] also on board. 10. Possible choledocholithiasis by images, with normal liver function tests and no right upper quadrant pain, will monitor for now. The patient does not have a PCP, the patient does not have an [facility] [employer] [facility] doctor, so hopefully she will continue with our [facility] doctor as an outpatient. I contacted [facility] today, and I had a conversation with Dr. Lopez about this patient, I gave her all the information about this patient's phone number, they will try to follow this patient up and she has suggested that this patient should be monitored also by the high risk [facility] doctor at [facility] as well. This patient's number is , after discussing this patient, she has suggested to put this patient on 4 g daily of Lovaza that is going to be given to the patient, also Dr. Lopze states that the diabetes needs to be better controlled, so she has suggested to put this patient on a long-acting insulin like insulin glargine, which I did, also I have contacted the dietitian for this patient. We will send all this patient's information via fax, the fax number is , I really appreciate their help. Again this patient does not have a primary care doctor. She has been seen by our [facility] doctor here and hopefully they will continue to monitor this patient not only as an inpatient but outpatient as well. I discussed the case with the patient and I told her the patient everything about [facility], Dr. Lopez, high risk , and further management including stopping the insulin drip, using glargine, sliding scale insulin, pattern of blood sugar, Lovaza, I will switch the normal saline with D5 to half normal saline and monitor as well. cc: Bret Brown MD
[2019-10-02] MEDS: HUMULIN R SUBQ SCH ×3 (11:32→21:04)
[2019-10-02] MEDS: ROCEPHIN 1 GM in NS 50 ML IV SCH (13:55)
--- NOTE | 2019-10-02 14:08 | Diag Imaging Result Doc PS360 ---
EXAM: MRI MRCP (ABD W/O CONTRAST) INDICATION: Choledocholithiasis with gallstone pancreatitis TECHNIQUE: COMPARISON: None. FINDINGS: There has been a prior cholecystectomy. The common bile duct is normal in diameter and there are no filling defects identified in the common bile duct to indicate a ductal stone. There is no evidence of ductal stricture. The pancreatic duct is not dilated. There is extensive peripancreatic inflammatory stranding and peripancreatic fluid that extends from the pancreas along the left paracolic gutter consistent with acute pancreatitis. The spleen is somewhat enlarged measuring 15.4 cm in the greatest dimension axially. The liver is mildly prominent measuring 19.6 cm craniocaudally at the midclavicular line. The liver and spleen are grossly unremarkable, otherwise. The portal vein exhibits normal flow voids. The visualized abdominal segments of the GI tract is unremarkable. There is a small umbilical hernia containing only fat and a small amount of fluid. IMPRESSION: 1.Acute pancreatitis. 2.No common bile duct filling defects to indicate stones or ductal strictures identified and the common bile duct is normal in diameter. 3.Mild hepatosplenomegaly. Electronically signed by Timoteo Mann 10/02/2019 2:05 PM
--- NOTE | 2019-10-02 19:46 | GASTROENTEROLOGY PROGRESS NOTE ---
DATE: 10/02/2019 SUBJECTIVE: The patient was lying comfortably in the bed, but she was complaining of pain mostly located in the left side of the abdomen, around left lower quadrant area. She complains of occasional pain in the epigastric area. She reports known problem of nausea and vomiting. She is eating and tolerating diet well. OBJECTIVE: Vitals: Temperature 98.7 degrees, pulse was 96 per minute, breathing rate of 17, blood pressure 116/59. Abdomen: Full, soft, mildly tender, and slightly bloated. Bowel sounds are audible. LABORATORIES: Reviewed, which show her amylase and lipase have normalized at 37 and 40 respectively. Transaminase is also normal with normal bilirubin. MRCP of the abdomen done this afternoon, which showed no evidence of choledocholithiasis and no stricture was noted, and the common bile duct was normal size. However, it did show evidence of pancreatitis. IMPRESSION: Acute pancreatitis, most likely related to hypertriglyceridemia. Her triglyceride levels are trending downward. Her enzymes, amylase and lipase have normalized. I would recommend to advance her diet slowly, but go on to a low fat diet. I also recommended to taper and switch her pain medication to p.o. Advised to follow up with me at the office after discharge and follow up with the primary care as scheduled. cc: Deonte Guerrier MD
[2019-10-02] MEDS: NS IV SCH (21:12)
[2019-10-02] MEDS: FOLIC ACID IV SCH (21:12)
[2019-10-02] MEDS: M V I IV SCH (21:12)
[2019-10-03] MEDS: DILAUDID IV PRN ×8 (00:11→21:32)
[2019-10-03] MEDS: 1/2 NS 1,000 ML IV SCH ×2 (05:42→12:26)
[2019-10-03] MEDS: HUMULIN R SUBQ SCH ×4 (05:44→21:07)
[2019-10-03 06:36] LABS: AGAP 13; ALB/GLOB RATIO 0.7; ALBUMIN 2.4 g/dL (3.5-5.0); ALKALINE PHOSPHATASE 64 U/L (32-104); BUN 2 mg/dL (8-22); CALCIUM 8.6 mg/dL (8.8-10.2); CHLORIDE 102 mmol/L (98-107); CHOLESTEROL 194 mg/dL (0-200); COSMO 277; CREATININE 0.5 mg/dL (0.5-0.9); ESTIMATED GFR > 60; GLUCOSE 224 mg/dL (70-104); GOT 9 U/L (10-30); GPT 7 U/L (10-36); HDL 16 mg/dL (45-65); MAGNESIUM 1.9 mg/dL (1.5-2.7); PHOSPHORUS 4.3 mg/dL (2.7-4.5); POTASSIUM 3.3 mmol/L (3.5-5.1); SODIUM 137 mmol/L (136-145); TCO2 22 mmol/L (25-35); TOTAL BILIRUBIN 0.27 mg/dL (0.20-1.00); TRIGLYCERIDES 471 mg/dL (35-135)
[2019-10-03] MEDS: PRECARE PO SCH (08:27)
[2019-10-03] MEDS: LANTUS INSULIN SUBQ SCH (08:27)
[2019-10-03] MEDS: MIRALAX PO SCH (08:27)
[2019-10-03] MEDS: PEPCID IV SCH (08:27)
[2019-10-03] MEDS: FISH OIL CONCENTRATE PO SCH ×2 (08:28→21:03)
[2019-10-03 09:17] LABS: BASO# 0.02 X1000 (0.0-0.2); BASO% 0.3 % (0.0-0.8); EOS# 0.18 X1000 (0.0-0.7); EOS% 2.6 % (0.0-10.0); HEMATOCRIT 30.8 % (37.0-47.0); HEMOGLOBIN 9.6 g/dL (12.0-16.0); IMM GRAN# 0.02 X1000 (0.0-0.04); IMM GRAN% 0.3 % (0.0-0.5); LYMPH# 1.39 X1000 (1.2-3.4); MCH 27.5 PG (27-31); MCHC 31.2 g/dL (33-37); MCV 88.3 FL (81-99); MONO# 0.77 X1000 (0.11-0.59); MONO% 11.1 % (1.7-9.3); MPV 11.5 FL (7.4-10.4); NEUT# 4.56 X1000 (1.4-6.5); NEUT% 65.7 % (42.2-75.2); PLT 153 X1000 (130-400); RBC 3.49 XMIL (4.2-5.4); RDW 15.3 % (11.5-14.5); WBC 6.94 X1000 (4.8-10.8)
[2019-10-03] MEDS: PHENERGAN IV PRN (09:37)
--- NOTE | 2019-10-03 11:49 | PROGRESS NOTE ---
DATE: 10/03/2019 SUBJECTIVE: I have seen and examined Ms. Dave today. Ms. Dave refers to be having some pains, especially to the left flank and also more vaginal bleeding. She is still pending follow-up evaluation from HOME THEATER EXPERT. OBJECTIVE: Vital signs: Blood pressure is 114/64, pulse of 90, respirations 16, temperature 98.5 degrees. Patient's O2 saturation is 98 on room air. General: Ms. Dave is a 29-year-old female. She is in bed in no distress. HEENT: Mucosa is pink and moist. Anicteric. Acyanotic. Neck: Supple. Chest: Good air entry bilateral. There were no crepitations, no rhonchi. Cardiovascular: Regular rate and rhythm. Abdomen: Soft. Some generalized tenderness almost everywhere, but more remarkable to the left upper quadrant and the flanks. Extremities: There is no pedal edema. WELT STITCHER: Patient is awake, alert, oriented. There is no focal deficit. LABORATORY DATA: WBC 6.94, hemoglobin of 9.6, platelet count of 153,000. Chemistry is also reviewed. The potassium is 3.3, otherwise rest of chemistry is unremarkable and glucose is 224. Urine culture showing Escherichia coli. ASSESSMENT: 1. Severe uncontrolled insulin-dependent diabetes mellitus, presumably type 1, presented with diabetic ketoacidosis, improved. 2. Acute triglyceride-induced pancreatitis. MRCP shows unremarkable common bile duct. 3. Severe hypertriglyceridemia. 4. Escherichia coli urinary tract infection. Patient is on ceftriaxone. 5. Mild electrolyte abnormality. We will continue to replace. 6. Early intrauterine with intermittent vaginal bleed. HOME THEATER EXPERT is on board. In general, I think Ms. Dave is doing well. However, she continues to have some abdominal discomfort and she is still bleeding. We are pending further recommendations from HOME THEATER EXPERT. In terms of her diabetes control, I have added premeal insulin coverage. Unfortunately for her hypertriglyceridemia, we cannot use either fenofibrate or gemfibrozil because of her current status. cc: Ezequiel Rivers MD [facility] SYSTEM[facility]
[2019-10-03] MEDS: HUMALOG SUBQ SCH ×2 (12:44→17:24)
[2019-10-03] MEDS: ROCEPHIN 1 GM in NS 50 ML IV SCH (15:30)
--- NOTE | 2019-10-03 16:34 | GASTROENTEROLOGY PROGRESS NOTE ---
DATE: 10/03/2019 SUBJECTIVE: The patient was resting at the time of our evaluation. She is still complaining of some pain and she is having some vaginal bleeding. She is in the early trimester following with SUCTION DREDGE DUMPING SUPERVISOR in the hospital. She had an MRCP to check for common bile duct stone. MRCP done on 10/01 showed acute pancreatitis. No common bile duct filling defects to indicate stones or strictures identified and mild hepatic splenomegaly. Her liver function tests are normal. Amylase and lipase have been normal over the last several days. ASSESSMENT AND PLAN: 1. Diabetes. Continue current management. 2. Hypertriglyceride-induced pancreatitis. MRCP did not show evidence of common bile duct stone. 3. Early intrauterine . Following with FINANCIAL OPERATIONS CONSULTANT. 4. MRCP did not show evidence of common bile duct stone. Continue symptomatic treatment and supportive care. Continue following with FINANCIAL OPERATIONS CONSULTANT. GI will sign off for now. Please re- consult if needed. Patient was also seen by Dr. Guerrier. Dictated by ILYA Nolen for Deonte Guerrier MD cc: ILYA Tobar MD
[2019-10-03] MEDS: FOLIC ACID IV SCH (21:04)
[2019-10-03] MEDS: M V I IV SCH (21:04)
[2019-10-03] MEDS: NS IV SCH (21:04)
[2019-10-04] MEDS: 1/2 NS 1,000 ML IV SCH (00:28)
[2019-10-04] MEDS: DILAUDID IV PRN ×3 (00:28→06:30)
[2019-10-04 05:39] VITALS: BP 107/63
[2019-10-04 05:58] LABS: AGAP 14; ALB/GLOB RATIO 0.7; ALBUMIN 2.6 g/dL (3.5-5.0); ALKALINE PHOSPHATASE 69 U/L (32-104); BUN 3 mg/dL (8-22); CALCIUM 8.8 mg/dL (8.8-10.2); CHLORIDE 100 mmol/L (98-107); COSMO 277; CREATININE 0.5 mg/dL (0.5-0.9); ESTIMATED GFR > 60; GLUCOSE 215 mg/dL (70-104); GOT 8 U/L (10-30); GPT 7 U/L (10-36); POTASSIUM 3.4 mmol/L (3.5-5.1); SODIUM 137 mmol/L (136-145); TCO2 23 mmol/L (25-35); TOTAL BILIRUBIN 0.17 mg/dL (0.20-1.00); TOTAL PROTEIN 6.2 g/dL (6.3-8.3)
[2019-10-04] MEDS: HUMULIN R SUBQ SCH (06:40)
--- NOTE | 2019-10-04 07:45 | OB/GYN PROGRESS NOTE ---
- Subjective Patient feeling much better today, She was hospitalized for nausea, possible pancreatitis, uncontrolled diabetes DKA, dehydration and sepsis. It was noted on admission that her quant hcg was positive, and has not changed in last 24 hours, she is also bleeding, "like a period" per patient. We discussed she may be having an miscarriage, it is about 50/50, and will follow. Denies any abdominal pain, dizziness, and is now tolerating diet, OB Physical Exam Vital Signs - 8 hr 10/04/19 00:00 10/04/19 04:00 Temperature 98.6 F 98.5 F Pulse Rate 89 94 H Respiratory Rate 16 17 Blood Pressure 109/59 107/63 O2 Sat by Pulse Oximetry 98 97 - CONSTITUTIONAL General Appearance: appears well, alert, no apparent distress - EYES Eyes: PERRL/EOMI - HEAD, EARS, NOSE, MOUTH & THROAT HENMT: normocephalic/atraumatic - RESPIRATORY Respiratory: no respiratory distress - CARDIOVASCULAR Cardiovascular: regular rate, rhythm - CHEST (BREASTS) Chest/Breast: deferred - GENITOURINARY Female Genitalia/Pelvic Exam: deferred - MUSCULOSKELETAL Extremity: normal range of motion - NEUROLOGIC Neurologic: grossly normal - PSYCHIATRIC Psych/Mental Status: normal mood/affect, oriented x 3 Active Medications Generic Name Dose Route Start Last Admin Trade Name Freq PRN Reason Stop Dose Admin Dextrose 50 ml 09/30/19 09:56 [id number] Syringe IV DIRECTED PRN PRN hypoglycemia Famotidine 20 mg 09/30/19 09:00 10/03/19 08:27 Pepcid IV 20 mg QAM GERSON Administration Hydromorphone HCl 1 mg 09/28/19 16:10 10/04/19 06:30 Dilaudid IV 1 mg Q3H PRN PRN Administration Pain Multivitamins/Minerals 10 ml/ 1,010.2 mls @ 100 mls/hr 09/28/19 22:00 10/03/19 21:04 Folic Acid 1 mg/ Sodium IV 100 mls/hr Chloride Q24H GERSON Administration Ceftriaxone Sodium 1 gm/ 50 mls @ 100 mls/hr 09/29/19 14:15 10/03/19 15:30 Sodium Chloride IV 100 mls/hr Q24H GERSON Administration Sodium Chloride 1,000 mls @ 75 mls/hr 10/02/19 09:45 10/04/19 00:28 1/2 Ns IV 75 mls/hr .[id number] GERSON Administration Insulin Glargine 25 unit 10/02/19 09:30 10/03/19 08:27 Lantus Insulin SUBQ 25 unit DAILY GERSON Administration Insulin Human Lispro 5 units 10/03/19 12:00 10/03/19 17:24 Humalog SUBQ 5 units TID CC GERSON Administration Insulin Human Regular 0 unit 10/02/19 11:00 10/04/19 06:40 Humulin R SUBQ Not Given 0700,1100,1600,2100 [facility] Protocol [place]-3/[place]-6/[place]-9 Fatty Acids 2,000 mg 10/02/19 09:30 10/03/19 21:03 Fish Oil Concentrate PO 2,000 mg BID GERSON Administration Polyethylene Glycol 17 gm 10/02/19 09:00 10/03/19 08:27 Miralax PO 17 gm DAILY GERSON Administration Multivit/Folic Acid/Iron 1 each 10/01/19 09:00 10/03/19 08:27 Precare PO 1 each DAILY GERSON Administration Promethazine HCl 25 mg 09/28/19 11:21 10/03/19 09:37 Phenergan IV 25 mg Q4H PRN PRN Administration Nausea And Vomiting Bedside Urine ED: Urine Bedside Start: 09/27/19 10:59 Freq: Status: Complete Protocol: Activity Type Activity Date Activity User E-Sign Co-Sign Detail Recorded Client Recorded Date Recorded By Document 09/27/19 10:59 [id number] 09/27/19 10:59 [id number] Edit Status 09/27/19 20:01 [id number] Active=>Complete [id number] 09/27/19 20:01 [id number] 09/27/19 10:59 Point of Care [Bedside Point of Care] -Lot # [id number] - Results Weak Positive -Control Line Visible? Yes -Additional Comment sb Laboratory Results - last 24 hr 10/03/19 10/03/19 10/03/19 05:45 05:45 10:40 WBC 6.94 RBC 3.49 L Hgb 9.6 L Hct 30.8 L MCV 88.3 MCH 27.5 MCHC 31.2 L RDW Std Deviation 15.3 H Plt Count 153 MPV 11.5 H Immature Gran % (Auto) 0.3 Neut % (Auto) 65.7 Lymph % (Auto) 20.0 L [place] % (Auto) 11.1 H Eos % (Auto) 2.6 Baso % (Auto) 0.3 Immature Gran # (Auto) 0.02 Neut # (Auto) 4.56 Lymph # (Auto) 1.39 [place] # (Auto) 0.77 H Eos # (Auto) 0.18 Baso # (Auto) 0.02 Sodium Potassium Chloride Carbon Dioxide Anion Gap BUN Creatinine Estimated GFR/1.73 m2 BUN/Creatinine Ratio Glucose POC Glucose 265 H Calculated Osmolality Calcium Total Bilirubin AST ALT Alkaline Phosphatase C-Reactive Prot, Quant 105.94 H Total Protein Albumin Globulin Albumin/Globulin Ratio Triglycerides Ser , Semi-Qnt 10/03/19 10/03/19 10/04/19 15:21 20:11 05:19 WBC RBC Hgb Hct MCV MCH MCHC RDW Std Deviation Plt Count MPV Immature Gran % (Auto) Neut % (Auto) Lymph % (Auto) [place] % (Auto) Eos % (Auto) Baso % (Auto) Immature Gran # (Auto) Neut # (Auto) Lymph # (Auto) [place] # (Auto) Eos # (Auto) Baso # (Auto) Sodium Potassium Chloride Carbon Dioxide Anion Gap BUN Creatinine Estimated GFR/1.73 m2 BUN/Creatinine Ratio Glucose POC Glucose 169 H 159 H Calculated Osmolality Calcium Total Bilirubin AST ALT Alkaline Phosphatase C-Reactive Prot, Quant Total Protein Albumin Globulin Albumin/Globulin Ratio Triglycerides Ser , Semi-Qnt 1374.0 10/04/19 10/04/19 10/04/19 05:19 05:19 06:34 WBC RBC Hgb Hct MCV MCH MCHC RDW Std Deviation Plt Count MPV Immature Gran % (Auto) Neut % (Auto) Lymph % (Auto) [place] % (Auto) Eos % (Auto) Baso % (Auto) Immature Gran # (Auto) Neut # (Auto) Lymph # (Auto) [place] # (Auto) Eos # (Auto) Baso # (Auto) Sodium 137 Potassium 3.4 L Chloride 100 Carbon Dioxide 23 L Anion Gap 14 BUN 3 L Creatinine 0.5 Estimated GFR/1.73 m2 > 60 BUN/Creatinine Ratio 6 Glucose 215 H POC Glucose 195 H Calculated Osmolality 277 Calcium 8.8 Total Bilirubin 0.17 L AST 8 L ALT 7 L Alkaline Phosphatase 69 C-Reactive Prot, Quant 91.00 H Total Protein 6.2 L Albumin 2.6 L Globulin 3.6 Albumin/Globulin Ratio 0.7 Triglycerides 434 H Ser , Semi-Qnt OB Assessment & Plan (1) Vaginal bleeding affecting early Status: Acute Plan: Patient seems very stable, will follow as outpatient vaginal bleeding, have her make appointment with Dr. Arshad for follow up All questions answered. If any further in house needs please call
[2019-10-04] MEDS ORDERED: LANTUS INSULIN SUBQ SCH (09:00)
--- NOTE | 2019-10-04 16:19 | DISCHARGE SUMMARY ---
ADMISSION DATE: 09/27/2019 DISCHARGE DATE: 10/04/2019 Date of signing against medical advice is 10/04/2019. DIAGNOSES AT THE TIME OF ADMISSION: 1. Acute pancreatitis. 2. Hypertriglyceridemia. 3. Diabetes mellitus. 4. First trimester . DIAGNOSES AT TIME OF LEAVING AGAINST MEDICAL ADVICE: 1. Severe uncontrolled insulin-dependent diabetes mellitus, presented with diabetic ketoacidosis. 2. Acute triglyceride induced acute pancreatitis. 3. Severe hypertriglyceridemia. 4. Escherichia coli urinary tract infection. 5. Early intrauterine , complicated with vaginal bleed, concerning for a miscarriage. DISCHARGE MEDICATIONS: None because patient left against medical advice. IMAGING STUDIES: 1. Obstetric ultrasound showed no intrauterine gestational sac which could be because could be extremely early. 2. Abdominal ultrasound did show choledocholithiasis, hepatic steatosis, splenomegaly. 3. MRCP showed acute pancreatitis. No common bile duct filling. Mild hepatosplenomegaly. INVASIVE PROCEDURES DURING ADMISSION: None. PRESENTING COMPLAINT: Nausea. HISTORY OF PRESENTING COMPLAINT: Ms. Dave is a 29-year-old female who has longstanding history of chronic recurrent pancreatitis, hypertriglyceridemia, and diabetes mellitus who came to the emergency room because of nausea and vomiting and was found to be in acute pancreatitis. She was also noted to be . She was transferred from [facility] for higher level of care. HOSPITAL COURSE: Ms. Dave was admitted to the medical floor, kept NPO, adequately fluid resuscitated, and OB-RETAIL TIRE SALES MANAGER as well as GI were consulted. During the hospital course, Ms. Dave continues to show improvement from pancreatitis standpoint. However, she started having vaginal bleed. OB-RETAIL TIRE SALES MANAGER evaluated her multiple times. They did document that she could have a 50/50 chance of having a miscarriage, but it is thought she was stable to follow up as an outpatient. This morning, Ms. Dave left against medical advise, stating that she did not have any more thing to do in the hospital if she will follow up with OB-RETAIL TIRE SALES MANAGER. She did not wait for me to see her before leaving the hospital. cc: Ezequiel Rivers MD
== END 2019-10-04 07:56 | disposition left against medical advice (07) | DRG 831 ==
LOC: P.ED 10:40 → SUATTDRO 15:19 → P.MEDSURG 15:19 → 2N 09-28 11:11
PROVIDERS: ATTEND Internal Medicine